=== PATIENT | female | born 1950 | race Caucasian/White ===

== ENCOUNTER 2017-03-23 08:15 | Outpatient (CLI) | payer MEDICARE, OTHER ==
--- NOTE | 2017-03-23 15:44 | NM ---
RADIONUCLIDE GASTRIC EMPTYING SCAN WITH SCRAMBLED EGGS/SOLID: 03/23/17 HISTORY: Abdominal pain. Bloating. FINDINGS: Anterior planar images show good mixing of radiotracer within the stomach. Half life emptying is ryley culated at 135 minutes. 30 minutes = 0% emptying. 60 minutes = 26% emptying. 2 hours = 36% emptying. 3 hours = 92% emptying. 4 hours = 99% emptying. IMPRESSION: Abnormal half life emptying and other findings as detailed above have the appearance of gastropares is. POS: DEBBIE
== END 2017-03-23 08:16 | disposition home or self-care (01) ==
LOC: NM 08:15
PROVIDERS: ATTEND Internal Medicine Gastroenterology
DX: R10.13 Epigastric pain (principal); R14.0 Abdominal distension (gaseous)
CPT/HCPCS: 78264; A9541

== ENCOUNTER 2017-07-12 12:23 | Emergency (ER) | payer BC, MEDICARE ==
--- NOTE | 2017-07-12 13:10 | RAD ---
RADIOGRAPH CHEST 1 VIEW: HISTORY: A 66-year-old female with acute chest pain. FINDINGS: There are no air space densities, pulmonary edema, pneumothorax, or cardiomegaly. The lateral costop hrenic angles are sharp. IMPRESSION: No acute cardiopulmonary findings. jn [] POS: DEBBIE
[2017-07-12 13:19] LABS: #Basophils 0.1 thou/uL (0.0-0.2); #Eosinphils 0.2 thou/uL (0.0-0.7); #Lymphocytes 2.1 thou/uL (1.20-3.40); #Monocytes 0.5 thou/uL (0.11-0.59); #Neutrophils 5.6 thou/uL (1.40-6.50); %Basophils 1.2 % (0.0-1.0); %Eosinophils 2.4 % (0.0-10.0); %Lymphocytes 24.8 % (21.0-51.0); %Monocytes 5.6 % (0.0-10.0); Hemoglobin 13.7 g/dL (12.0-16.0); Mean Corpuscular HGB CONC 34.7 g/dL (32.0-36.0); Mean Corpuscular Hemoglobin 31.8 pg (27.0-31.0); Mean Corpuscular Volume 91.8 fl (81.0-99.0); Mean Platelet Volume 8.2 fL (7.4-10.4); Platelet Count 242 thou/uL (130-400); RBC Distribution Width 11.7 % (11.5-14.5); White Blood Cell (WBC) Count 8.5 thou/uL (4.8-10.8)
[2017-07-12 13:42] LABS: ALT (SGPT) 14 U/L (8-55); AST (SGOT) 13 U/L (5-34); Albumin 3.8 g/dL (3.4-4.8); Alkaline Phosphatase 128 U/L (40-150); Anion Gap 11 mmol/L (10-20); BUN (Urea Nitrogen) 16 mg/dL (9.8-20.1); Bilirubin, Total 0.4 mg/dL (0.2-1.2); CK (CPK) 59 U/L (29-168); Calc. Creatinine Clearance 0 mL/min (70-130); Calcium 9.3 mg/dL (7.8-10.44); Carbon Dioxide 29 mmol/L (23-31); Chloride 100 mmol/L (98-107); Estimated GFR-MDRD 68; Globulin 3.6 g/dL (2.4-3.5); Glucose 284 mg/dL (80-115); Lipase 22 U/L (8-78); Potassium 3.2 mmol/L (3.5-5.1); Protein, Total 7.4 g/dL (6.0-8.3); Sodium 137 mmol/L (136-145)
[2017-07-12 13:44] LABS: CKMB 1.8 ng/mL (0-6.6); Troponin I 0.016 ng/mL (< 0.028)
== END 2017-07-12 14:55 | disposition home or self-care (01) ==
LOC: ERS 12:23
DX: R20.2 Paresthesia of skin (principal); I10 Essential (primary) hypertension; E11.9 Type 2 diabetes mellitus without complications; F32.9 Major depressive disorder, single episode, unspecified
CPT/HCPCS: 36415; 71045; 80053; 82553; 83690; 84484; 85025; 93005

== ENCOUNTER 2018-03-24 18:48 | Observation (INO) | payer BC, MEDICARE ==
[2018-03-24 19:11] LABS: #Basophils 0.1 thou/uL (0.0-0.2); #Eosinphils 0.3 thou/uL (0.0-0.7); #Monocytes 0.8 thou/uL (0.11-0.59); #Neutrophils 6.3 thou/uL (1.40-6.50); %Basophils 0.9 % (0.0-1.0); %Eosinophils 2.5 % (0.0-10.0); %Lymphocytes 28.5 % (21.0-51.0); %Monocytes 7.3 % (0.0-10.0); %Neutrophils 60.9 % (42.0-75.0); Hemoglobin 12.6 g/dL (12.0-16.0); Mean Corpuscular HGB CONC 35.4 g/dL (32.0-36.0); Mean Corpuscular Hemoglobin 31.7 pg (27.0-31.0); Mean Corpuscular Volume 89.6 fL (78.0-98.0); Mean Platelet Volume 8.1 fL (7.4-10.4); Platelet Count 263 thou/uL (130-400); RBC Distribution Width 11.1 % (11.5-14.5); Red Blood Cell (RBC) Count 3.99 mill/uL (4.20-5.40); White Blood Cell (WBC) Count 10.4 thou/uL (4.8-10.8)
[2018-03-24 19:17] LABS: PTT 28.3 SEC (22.9-36.1)
[2018-03-24 19:25] LABS: ALT (SGPT) 7 U/L (8-55); AST (SGOT) 12 U/L (5-34); Albumin 3.8 g/dL (3.4-4.8); Alkaline Phosphatase 144 U/L (40-150); Anion Gap 15 mmol/L (10-20); BUN (Urea Nitrogen) 23 mg/dL (9.8-20.1); Bilirubin, Total 0.3 mg/dL (0.2-1.2); CK (CPK) 89 U/L (29-168); Calc. Creatinine Clearance 0 mL/min (70-130); Calcium 9.5 mg/dL (7.8-10.44); Carbon Dioxide 24 mmol/L (23-31); Chloride 101 mmol/L (98-107); Estimated GFR-MDRD 50; Globulin 4.3 g/dL (2.4-3.5); Glucose 232 mg/dL (80-115); Potassium 3.4 mmol/L (3.5-5.1); Protein, Total 8.1 g/dL (6.0-8.3); Sodium 137 mmol/L (136-145)
[2018-03-24 19:29] LABS: CKMB 2.2 ng/mL (0-6.6); Troponin I Less than 0.010 ng/mL (< 0.028)
--- NOTE | 2018-03-24 19:33 | CT ---
CT OF THE HEAD WITHOUT CONTRAST: 03/24/18 COMPARISON: 04/05/11. HISTORY: Left arm weakness. TECHNIQUE: Serial axial CT imaging at 5 mm intervals from vertex through skull base without contrast. FINDINGS: The imaged paranasal sinuses and mastoid air cells are well aerated. There is no displaced calvarial fracture. No intracranial hemorrhage, midline shift, mass effect or ventricular enlargement. IMPRESSION: No acute findings. Results called to Dr. Curry at 7:18 p.m., 03/24/18. Code CR POS: LETY
[2018-03-24] MEDS ORDERED: Ondansetron HCl/PF 4 MG/2 ML Vial IVP PRN (23:58)
[2018-03-24] MEDS ORDERED: Ondansetron ODT 4 MG TAB SL PRN (23:58)
[2018-03-25] MEDS ORDERED: Dextrose 50% Abboject 50 ML SYRINGE IVP PRN (06:42)
[2018-03-25] MEDS ORDERED: Dextrose 5% in Water 1,000 ML IV PRN (06:42)
[2018-03-25] MEDS ORDERED: Lorazepam 2 MG/ML VIAL SLOW IVP SCH (06:45)
[2018-03-25] MEDS: HumaLOG 300 UNITS/3 ML VIAL SC PRN ×4 (07:30→21:40)
[2018-03-25] MEDS: glipiZIDE 10 MG TAB PO SCH ×2 (08:32→17:11)
[2018-03-25] MEDS: metFORMIN 500 MG TAB PO SCH (08:32)
[2018-03-25] MEDS ORDERED: cloNIDine 0.1 MG TAB PO PRN (10:12)
--- NOTE | 2018-03-25 13:04 | MRI ---
MRI BRAIN NONCONTRAST: HISTORY: Left arm weakness. FINDINGS: There is no evidence of acute intracranial hemorrhage or infarct. Ventricles appear normal in size, shape, and position. There is no mass effect or shift of midline structures. IMPRESSION: No acute intracranial abnormalities are demonstrated. POS: [facility]
[2018-03-25 13:40] VITALS: BMI 29.1
[2018-03-25] MEDS ORDERED: glipiZIDE 10 MG TAB PO SCH (21:00)
--- NOTE | 2018-03-25 21:29 | SS ---
PRIMARY CARE PHYSICIAN: Jose García MD DATE OF ADMISSION: 03/25/2018 CHIEF COMPLAINT: Left arm weakness. HISTORY OF PRESENT ILLNESS: This is a 67-year-old female patient of Dr. Jose García with a history of type 2 diabetes, hypertension, anxiety, reflux, who presents to the Emergency Department with ons et of left arm and hand weakness and clumsiness. The patient states that she has been in usual state of health. No recent changes. 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 She noted some clumsiness with her fingers an d lack of coordination. She was able to drive herself to the Emergency Department and drove with her right arm. By the time she arrived to the ED, her symptoms had resolved and had a normal exam and n ormal workup in the Emergency Department. CT of the brain was negative. Cardiac enzymes were all ne gative and she was admitted for observations overnight. At this point, her MRI is pending. Otherwis e, her symptoms have continued to resolve and we are pending discharge on her MRI report. PAST MEDICAL HISTORY: Type 2 diabetes, hypertension, gastroesophageal reflux disease, anxiety, depre ssion. MEDICATIONS: Include losartan/hydrochlorothiazide 50/12.5 once daily, metformin 1000 mg b.i.d., glip izide 10 mg b.i.d., pantoprazole 40 mg daily, Prozac 10 mg daily. PAST SURGICAL HISTORY: Cholecystectomy, x2, hernia repair, hysterectomy. SOCIAL HISTORY: No alcohol, no drug use, no smoking. She is and lives with her family. ALLERGIES: No known drug allergies. REVIEW OF SYSTEMS: As per the history of present illness. She denies any recent fevers, chills, or recent illness. HEENT: No headache or visual or hearing changes. No recent upper respiratory sympt oms. Cardiac: No chest pain, shortness of breath, palpitations. Pulmonary: Denies cough or hemopt ysis. Gastrointestinal: Denies nausea, vomiting, abdominal pain, melena, or hematochezia. Genitour inary: No dysuria. Neurologic: As per the history of present illness. She denies any recent seizu res. Denies headaches. PHYSICAL EXAMINATION: VITAL SIGNS: Temperature 98; pulse of 78; respirations 20; blood pressure 170/73, but has not had he r morning medicines yet. GENERAL: She is awake and alert, in no acute distress. Speech is clear and fluid. HEENT: Mucosa is moist. NECK: Supple. No JVD, adenopathy. No bruits to auscultation. HEART: Regular rate and rhythm. LUNGS: Clear. ABDOMEN: Soft. EXTREMITIES: With no edema. NEUROLOGIC: Cranial nerves II-XII are intact. Visual simms are intact. Strength is 5/5 in upper a nd lower extremities. Sensation is intact bilaterally in upper and lower extremities. LABORATORY DATA: Reviewed. Accu-Cheks were elevated at 307, 232, and 250. Sodium 137, potassium 3. 4, chloride 101, CO2 of 24, BUN and creatinine 23 and 1.09 with a GFR of 50. Cardiac enzymes were ne gative. White blood cell count 10,400, hemoglobin and hematocrit 12.6 and 35.8, platelets of 263. P T and PTT were normal. Brain CT showed no active disease. MRI again is pending. ASSESSMENT AND PLAN: 1. This is a 67-year-old female patient with risk factors including type 2 diabetes, hypertension, n ow with evidence of a transient ischemic attack. Plan: Await MRI. If normal, we will plan to disch arge home. We will initiate aspirin therapy with 81 mg daily. 2. Type 2 diabetes. We will continue oral meds and insulin sliding scale. 3. Hypertension, uncontrolled. We will continue her losartan/hydrochlorothiazide, as well as clonid ine p.r.n. If it continues to be elevated, we will add calcium channel luis f for better control wi th close followup. DISPOSITION: Again, if MRI is normal, we will discharge home and follow up with Dr. García this week.
[2018-03-26 07:43] VITALS: TEMP 97.9
[2018-03-26] MEDS ORDERED: metFORMIN 500 MG TAB PO SCH (08:00)
[2018-03-26] MEDS: glipiZIDE 10 MG TAB PO SCH (08:17)
[2018-03-26] MEDS: metFORMIN 500 MG TAB PO SCH (08:17)
[2018-03-26] MEDS ORDERED: Aspirin 81 mg Enteric Coated Tablet PO SCH (09:00)
[2018-03-26] MEDS ORDERED: Prevnar 13-Val Conj/PF 0.5 ML SYRINGE IM ONE (09:00)
[2018-03-26] MEDS ORDERED: Amlodipine 5 MG TAB PO SCH (09:00)
[2018-03-26] MEDS ORDERED: FLUoxetine HCl 10 MG CAP PO SCH (09:00)
[2018-03-26 10:34] VITALS: BP 148/64
--- NOTE | 2018-03-26 17:30 | DIS ---
PRIMARY CARE PHYSICIAN: Jose García M.D. DATE OF ADMISSION: 03/25/2018 DATE OF DISCHARGE: 03/26/2018 ADMISSION DIAGNOSES: Left arm weakness consistent with transient ischemic attack. DISCHARGE DIAGNOSIS: Transient ischemic attack, resolved. OTHER DIAGNOSES: Hypertension, type 2 diabetes, anxiety, and depression. PROCEDURES: CT brain, MRI brain, telemetry monitoring. CONSULTATIONS: None. HOSPITAL COURSE: This is a 67-year-old female patient with type 2 diabetes, hypertension, now status post TIA. Her symptoms have resolved. She has initially presented to the Emergency Department with left-sided weakness in her left hand and arm. By the time, she arrived to the Emergency Department, her symptoms had mostly resolved. CT in the ER was negative. Cardiac enzymes were negative. MRI was done during her hospital stay and that revealed no abnormalities. Her blood pressure was elevated on admission and she had amlodipine added to her regimen which she will continue at home. She was stable for discharge on the day of discharge. DISCHARGE PHYSICAL EXAMINATION: VITAL SIGNS: Temperature 97.9, pulse of 77, respirations 16, blood pressure 145 /68, pulse ox 97% on room air. GENERAL: She is awake and alert, in no acute distress. Speech is clear. NECK: Supple. HEART: Regular rate and rhythm. LUNGS: Clear. NEUROLOGIC: Cranial nerves II-XII intact. Strength 5/5 in upper and lower extremities. Sensation is intact in upper and lower extremities. DISCHARGE MEDICATIONS: Amlodipine 5 mg daily, aspirin 81 mg daily, Prozac 10 mg daily, Glucotrol 10 mg b.i.d., losartan/hydrochlorothiazide 50/12.5 one daily , metformin 500 mg daily, Protonix 40 mg daily. Prevnar vaccine was given in the hospital. Patient declines starting statin therapy at this time. She wants to discuss with her PCP prior to starting medication. She is aware of risks and benefits. FOLLOWUP INSTRUCTIONS: Patient to follow up with Dr. García in 1 week. SHANNEN
== END 2018-03-26 14:22 | disposition home or self-care (01) ==
LOC: ERS 18:48 → 2SE 23:42
PROVIDERS: ADMIT Family Medicine; ATTEND Family Medicine
DX: G45.9 Transient cerebral ischemic attack, unspecified (principal); I10 Essential (primary) hypertension; E11.9 Type 2 diabetes mellitus without complications; F41.8 Other specified anxiety disorders; Z79.84 Long term (current) use of oral hypoglycemic drugs; Z79.899 Other long term (current) drug therapy
CPT/HCPCS: 70450; 70551; 80053; 82550; 82553; 82962 ×3; 84484; 85025; 85610; 85730; 90670; 93005; 96374; 97116; 97139 ×2; 99285; G0009; G0378 ×2; G8978; G8979; G8980; 36415; 36416; 90471; A4216; J2060

== ENCOUNTER 2019-01-30 08:06 | Emergency (ER) | payer MEDICARE ==
[2019-01-30 09:42] LABS: #Basophils 0.1 thou/uL (0.0-0.2); #Eosinphils 0.2 thou/uL (0.0-0.7); #Lymphocytes 1.6 thou/uL (1.20-3.40); #Monocytes 0.6 thou/uL (0.11-0.59); #Neutrophils 9.7 thou/uL (1.40-6.50); %Basophils 0.7 % (0.0-1.0); %Eosinophils 1.4 % (0.0-10.0); %Lymphocytes 13.1 % (21.0-51.0); %Monocytes 4.7 % (0.0-10.0); %Neutrophils 80.1 % (42.0-75.0); Hemoglobin 12.1 g/dL (12.0-16.0); Mean Corpuscular Hemoglobin 31.3 pg (27.0-31.0); Mean Corpuscular Volume 87.1 fL (78.0-98.0); Mean Platelet Volume 8.2 fL (7.4-10.4); Platelet Count 250 thou/uL (130-400); RBC Distribution Width 11.9 % (11.5-14.5); Red Blood Cell (RBC) Count 3.85 mill/uL (4.20-5.40); White Blood Cell (WBC) Count 12.1 thou/uL (4.8-10.8)
--- NOTE | 2019-01-30 09:56 | ULT ---
EXAM: Left lower extremity venous ultrasound HISTORY: Left lower extremity pain and edema COMPARISON: None TECHNIQUE: Multiplanar grayscale and color Doppler images were obtained in a left lower extremity laure ous ultrasound. Spectral analysis of the Doppler waveforms were performed. FINDINGS: The common femoral vein, profunda femoral vein, superficial femoral vein, and popliteal vei n are normal in appearance without visible thrombus. These vessels demonstrate normal compression, flow, and augmentation. The posterior tibial vein and greater saphenous vein are patent without evidence of thrombus. IMPRESSION: No evidence of DVT.
[2019-01-30 10:03] LABS: ALT (SGPT) 10 U/L (8-55); AST (SGOT) 11 U/L (5-34); Albumin 3.2 g/dL (3.4-4.8); Alkaline Phosphatase 211 U/L (40-150); Anion Gap 13 mmol/L (10-20); BUN (Urea Nitrogen) 16 mg/dL (9.8-20.1); Bilirubin, Total 0.2 mg/dL (0.2-1.2); Calc. Creatinine Clearance 0 mL/min (70-130); Carbon Dioxide 26 mmol/L (23-31); Chloride 100 mmol/L (98-107); Estimated GFR-MDRD 59; Globulin 3.9 g/dL (2.4-3.5); Glucose 527 mg/dL (80-115); Protein, Total 7.1 g/dL (6.0-8.3); Sodium 136 mmol/L (136-145)
[2019-01-30] MEDS ORDERED: Losartan 25 MG TAB PO SCH (10:30)
[2019-01-30] MEDS ORDERED: Potassium Chloride 20 MEQ TAB ONE (10:32)
[2019-01-30] MEDS ORDERED: Insulin Regular 300 UNITS/3 ML VIAL ONE (10:41)
[2019-01-30] MEDS ORDERED: NS 0.9% w/ 40 MEQ KCL 1,000 ML IV SCH (11:15)
[2019-01-30 11:42] LABS: Bacteria/HPF None Seen HPF (None Seen); Bilirubin Negative (Negative); Blood, Urine Trace (Negative); Clarity Clear (Clear); Glucose, Urine (Dipstick) Greater than 1000 mg/dL (Negative); Leukocyte Negative Leu/uL (Negative); Nitrite Negative (Negative); Protein, Urine (Dipstick) 200 mg/dL (Neg-Trace); RBC/HPF 0-3 HPF (0-3); Squamous Epithelial None Seen HPF (0-3); Urobilinogen Normal mg/dL (Less than 2); WBC/HPF 0-3 HPF (0-3)
[2019-01-30] MEDS ORDERED: Ondansetron PF 4 MG/2 ML Vial ONE ×2 (13:57→13:59)
== END 2019-01-30 17:37 | disposition home or self-care (01) ==
LOC: ERS 08:06
DX: E11.65 Type 2 diabetes mellitus with hyperglycemia (principal); I10 Essential (primary) hypertension; E87.6 Hypokalemia; Z76.0 Encounter for issue of repeat prescription; K21.9 Gastro-esophageal reflux disease without esophagitis; F41.9 Anxiety disorder, unspecified; Z79.899 Other long term (current) drug therapy; Z79.84 Long term (current) use of oral hypoglycemic drugs
CPT/HCPCS: 36416; 80053; 81003; 81015; 84484; 85025; 93005; 96365; 96366; 96375; J1815; J2405; J3480

== ENCOUNTER 2019-12-19 22:09 | Observation (INO) | payer MEDICARE ==
[~2019-12-19 22:09] MED LIST: Iopamidol 370 76% 100 ML VIAL ONE
[2019-12-19 22:40] LABS: #Basophils 0.1 thou/uL (0.0-0.2); #Eosinphils 0.2 thou/uL (0.0-0.7); #Lymphocytes 2.3 thou/uL (1.20-3.40); #Monocytes 0.7 thou/uL (0.11-0.59); #Neutrophils 9.6 thou/uL (1.40-6.50); %Basophils 0.9 % (0.0-1.0); %Eosinophils 1.6 % (0.0-10.0); %Lymphocytes 18.1 % (21.0-51.0); %Monocytes 5.2 % (0.0-10.0); %Neutrophils 74.2 % (42.0-75.0); Hemoglobin 10.5 g/dL (12.0-16.0); Mean Corpuscular HGB CONC 34.9 g/dL (32.0-36.0); Mean Corpuscular Hemoglobin 30.1 pg (27.0-31.0); Mean Corpuscular Volume 86.2 fL (78.0-98.0); Mean Platelet Volume 7.5 fL (7.4-10.4); Platelet Count 329 thou/uL (130-400); RBC Distribution Width 11.7 % (11.5-14.5); Red Blood Cell (RBC) Count 3.49 mill/uL (4.20-5.40); White Blood Cell (WBC) Count 12.9 thou/uL (4.8-10.8)
[2019-12-19] MEDS ORDERED: Aspirin Chewable 81 MG TAB ONE (22:40)
[2019-12-19] MEDS ORDERED: Nitroglycerin 2% Ointment 1 INCH/1 GM Packet ONE (22:40)
--- NOTE | 2019-12-19 22:47 | RAD ---
XR Chest 1 View Portable History: Dyspnea Comparison: Radiograph June 2017 Findings: Lungs are clear. No pneumothorax. No effusion. Cardiac silhouette and mediastinal contours are within normal limits. No acute osseous abnormality. Impression: No acute intrathoracic abnormality.
[2019-12-19 23:07] LABS: ALT (SGPT) 7 U/L (8-55); AST (SGOT) 11 U/L (5-34); Albumin 2.8 g/dL (3.4-4.8); Alkaline Phosphatase 196 U/L (40-110); Anion Gap 14 mmol/L (10-20); BUN (Urea Nitrogen) 14 mg/dL (9.8-20.1); Bilirubin, Total 0.3 mg/dL (0.2-1.2); CK (CPK) 180 U/L (29-168); Calc. Creatinine Clearance 0 mL/min (70-130); Calcium 7.7 mg/dL (7.8-10.44); Carbon Dioxide 26 mmol/L (23-31); Chloride 101 mmol/L (98-107); Estimated GFR-MDRD 37; Globulin 3.9 g/dL (2.4-3.5); Glucose 277 mg/dL (80-115); Lipase 26 U/L (8-78); Protein, Total 6.7 g/dL (6.0-8.3); Sodium 138 mmol/L (136-145)
[2019-12-19 23:14] LABS: Potassium 2.6 mmol/L (3.5-5.1)
[2019-12-19] MEDS ORDERED: Potassium Chloride 20 MEQ TAB ONE (23:15)
[2019-12-19] MEDS ORDERED: Enoxaparin Sodium 60 MG/0.6 ML SYRINGE ONE (23:40)
[2019-12-19] MEDS ORDERED: Labetalol HCl 100 MG/20 ML VIAL ONE (23:59)
--- NOTE | 2019-12-20 | CT ---
CTA Angio Chest W WO Con History: Chest pain Comparison: Reference is made to radiograph same day Findings: CT angiogram chest performed after the intravenous administration of contrast. 3-D renderin g provided. No proximal segmental pulmonary arterial filling defect. Aortic contour is normal. Incidental note is made of biliary gas likely from prior sphincterotomy. No mediastinal adenopathy. No pulmonary consolidation, pneumothorax or effusion. Low-grade atelectasis left lung base. No suspic ious pulmonary nodule. No acute osseous abnormality. Celiac trunk and superior mesenteric arteries are patent. Cyst superior pole left kidney is similar. No acute displaced rib fracture. Impression: 1. No pulmonary embolism. 2. No inflammatory process within the chest. No evidence for pneumonia.
[2019-12-20] MEDS ORDERED: Potassium Chloride 20 MEQ/100 ML PREMIX BAG ONE (00:11)
[2019-12-20] MEDS ORDERED: Nitroglycerin 0.4 MG TAB (25 Tab Bottle) PO PRN (01:58)
[2019-12-20] MEDS ORDERED: HumaLOG 300 UNITS/3 ML VIAL SC PRN (02:02)
[2019-12-20] MEDS ORDERED: Dextrose 5% in Water 1,000 ML IV PRN (02:02)
[2019-12-20] MEDS ORDERED: Dextrose 50% Abboject 50 ML SYRINGE SLOW IVP PRN (02:02)
[2019-12-20] MEDS ORDERED: Labetalol HCl 100 MG/20 ML VIAL SLOW IVP PRN (02:05)
[2019-12-20] MEDS ORDERED: hydrALAZINE 20 MG/ML VIAL SLOW IVP PRN (02:05)
[2019-12-20] MEDS ORDERED: Acetaminophen 325 MG TAB PO PRN (02:06)
[2019-12-20] MEDS ORDERED: Atorvastatin Calcium 40 MG TAB PO SCH ×2 (02:15→21:00)
[2019-12-20 02:18] VITALS: BMI 25.3
[2019-12-20 02:50] LABS: #Basophils 0.1 thou/uL (0.0-0.2); #Eosinphils 0.2 thou/uL (0.0-0.7); #Monocytes 0.7 thou/uL (0.11-0.59); #Neutrophils 10.8 thou/uL (1.40-6.50); %Basophils 0.7 % (0.0-1.0); %Lymphocytes 25.1 % (21.0-51.0); %Monocytes 4.7 % (0.0-10.0); %Neutrophils 68.5 % (42.0-75.0); Hemoglobin 10.6 g/dL (12.0-16.0); Mean Corpuscular HGB CONC 36.5 g/dL (32.0-36.0); Mean Corpuscular Hemoglobin 31.8 pg (27.0-31.0); Mean Corpuscular Volume 87.2 fL (78.0-98.0); Mean Platelet Volume 8.3 fL (7.4-10.4); Platelet Count 239 thou/uL (130-400); RBC Distribution Width 11.9 % (11.5-14.5); Red Blood Cell (RBC) Count 3.32 mill/uL (4.20-5.40); White Blood Cell (WBC) Count 15.7 thou/uL (4.8-10.8)
[2019-12-20 03:14] LABS: Anion Gap 14 mmol/L (10-20); BUN (Urea Nitrogen) 12 mg/dL (9.8-20.1); Calc. Creatinine Clearance 39 mL/min (70-130); Calcium 7.8 mg/dL (7.8-10.44); Carbon Dioxide 24 mmol/L (23-31); Cardiac Risk 3.9 (Less than 4.5); Chloride 102 mmol/L (98-107); Cholesterol 193 mg/dl (< 200 Desired); Estimated GFR-MDRD 41; Glucose 224 mg/dL (80-115); HDL Cholesterol 49 mg/dL (>60 Neg Risk); LDL Cholesterol, Calculated 97 mg/dL; Sodium 137 mmol/L (136-145); Triglycerides 233 mg/dL (Less than 150)
[2019-12-20 03:22] LABS: Potassium 2.8 mmol/L (3.5-5.1)
--- NOTE | 2019-12-20 03:56 | HP ---
PRIMARY CARE PHYSICIAN: Dr. Jose García. CHIEF COMPLAINT: Dyspnea. HISTORY OF PRESENT ILLNESS: The patient is a 69-year-old female with a past medical history significant for hypertension, diabetes type 2 non-insulin dependent, acid reflux, and anxiety, who presents to the ER for the above complaint. The patient reports having dyspnea intermittently over the past several weeks. She reports that the dyspnea is exacerbated with activities such as cleaning the house. Prior to coming to the ER, the patient reports that she was on her knees cleaning off a shelf when she began to feel a little bit short of breath with associated generalized weakness. She reports that she has had this off and on for several weeks. However, this evening, it was much worse. She denies any chest pain, heart palpitations, and swelling to lower extremities. She denies any cough, any recent fever or chills. She denies any abdominal pain, nausea, vomiting, or diarrhea. She denies feeling lightheaded. She has no other complaints at this time. The patient reports that she was discharged from [facility] for similar symptoms in November, she was discharged home on no new medications and she was supposed to follow up with a project builder. She reports that she actually was going to see Dr. Bautista tomorrow for a cardiac stress test, but instead had to come to the ER. In the ER, the patient's vital signs, she was hypertensive 186/80, she was tachycardic with a heart rate of 112. She had normal respirations, normal O2 sats. She was afebrile. EKG showed sinus tach 103, no ST elevations. Chest x-ray was negative for any acute process. D-dimer was elevated at 1.24. CTA of the chest was negative for any pulmonary embolism. Initial troponin 0.036, CK-MB 2.0, CPK 180, potassium of 2.6, creatinine 1.42, and glucose of 277. The patient was given Lovenox 1 mg/kg, aspirin and nitroglycerin paste on her chest. She was given 60 mEq of potassium. She was given labetalol IV push and 1 L of normal saline. PAST MEDICAL HISTORY: 1. Hypertension. 2. Diabetes type 2, non-insulin dependent. 3. GERD. 4. Anxiety. PAST SURGICAL HISTORY: 1. Cholecystectomy. 2. x2. 3. Hernia. 4. Hysterectomy. SOCIAL HISTORY: The patient lives alone at home. She has no history of smoking , illicit drug use, or alcohol intake. She is retired. FAMILY HISTORY: Contributory for cardiac disease. ALLERGIES: NO KNOWN DRUG ALLERGIES. HOME MEDICATIONS: 1. Fluoxetine 20 mg p.o. daily. 2. Pantoprazole 40 mg p.o. daily. 3. Glipizide 10 mg p.o. b.i.d. 4. Metformin 500 mg p.o. b.i.d. 5. Hydrochlorothiazide 12.5 mg p.o. daily. 6. Amlodipine 5 mg p.o. daily. 7. Losartan 50 mg p.o. daily. REVIEW OF SYSTEMS: All review of systems are negative unless otherwise stated in the HPI. PHYSICAL EXAMINATION: VITAL SIGNS: Temperature 99, blood pressure 186/80, heart rate 112, respirations 19, 98% on room air. CONSTITUTIONAL: The patient is alert and oriented to person, place, and time. No acute distress. Nontoxic in appearance. HEAD: Atraumatic and normocephalic. EYES: PERRLA. Extraocular muscles intact. ENT: Nares patent bilaterally. Oropharynx is clear. Uvula midline. Moist mucous membranes. NECK: Supple. Trachea midline. No JVD. No cervical adenopathy. Full range of motion. RESPIRATORY: Respirations are even and nonlabored. No rhonchi, wheezes, or rales. CARDIOVASCULAR: S1, S2 appreciated. No murmurs, rubs, or gallops. ABDOMEN: Soft, nontender. Active bowel sounds. No guarding. No rigidity. No rebound tenderness. No abdominal bruit auscultated. BACK: Full range of motion. No central spinous tenderness. No CVA tenderness. EXTREMITIES: Bilateral upper extremities; full range of motion, strength normal , sensation intact, palpable radial pulses. Bilateral lower extremities; full range of motion, strength intact, sensation intact, palpable pedal pulses, no swelling. NEUROLOGIC: The patient is alert and oriented to person, place, and time. No focal deficits. Normal gait. PSYCHIATRIC: Normal affect. Alert, oriented to person, place, and time. LABS AND DIAGNOSTICS: EKG; sinus tach 103, no ST elevations. Chest x-ray was negative. D-dimer was 1.24. CTA of chest was negative for PE. Initial troponin 0.034, CK-MB 2.0, CPK 180. Sodium 138, potassium 2.6, chloride 101, CO2 of 26, BUN 14, creatinine 1.42, glucose 277, calcium 7.7, alkaline phosphatase 196, AST 11 , ALT 7. WBC is 12.9, hemoglobin 10.5, hematocrit 30.1, platelets 329. IMPRESSION AND PLAN: 1. Dyspnea, rule out acute coronary syndrome. We will admit the patient to telemetry for observation status. Expected length of stay is less than 2 midnights. The patient's HEART score is a 6. CTA of chest was negative. Initial troponin was 0.036. We will continue aspirin and nitroglycerin paste. We will start Lipitor. We will trend troponins. We will check a TSH, fasting lipid, magnesium, and BNP. We will consult Cardiology. We will obtain echocardiogram. 2. Acute kidney injury. The patient presented with a creatinine of 1.42, baseline appears to be 1.07. We will give gentle IV hydration this evening and we will recheck in the a.m. We will avoid nephrotoxic drugs. We will hold hydrochlorothiazide and losartan. 3. Hypokalemia. The patient presented with a potassium of 2.6. EKG with sinus tach 103, no ST elevations. The patient received 60 mEq of potassium in the ER. We will recheck potassium level in a.m. and we will check magnesium level. 4. Diabetes 2. The patient presented with a blood sugar of 277. The patient takes metformin and glipizide at home. We will hold oral anti-diabetic medications at this time. We will start moderate sliding scale with Accu-Cheks before meals and at bedtime. 5. Hypertension. The patient presented with an elevated blood pressure of 186/ 80. The patient takes losartan, amlodipine, hydrochlorothiazide. We will restart amlodipine when reconciled by nursing. 6. Gastroesophageal reflux disease. The patient takes Protonix at home. We will restart home medication when reconciled by nursing. 7. SCDs for deep venous thrombosis prophylaxis. Pantoprazole for gastrointestinal prophylaxis. The patient is a full code. Her contact is Bobby, her son, [phone]. 8. Discussed the case with Dr. Mckinney. Job ID: [id number] [facility] HEALTHKelly
[2019-12-20] MEDS: Sodium Chloride 0.9% 1,000 ML IV SCH ×2 (04:01→21:58)
[2019-12-20] MEDS: Nitroglycerin 2% Ointment 1 INCH/1 GM Packet TOP SCH ×3 (04:07→21:59)
[2019-12-20 05:33] LABS: Troponin I 0.022 ng/mL (< 0.028)
[2019-12-20 08:21] LABS: Potassium 2.7 mmol/L (3.5-5.1)
[2019-12-20] MEDS ORDERED: Potassium Chloride 20 MEQ TAB PO SCH (08:45)
[2019-12-20] MEDS ORDERED: Famotidine 20 MG TAB PO SCH (09:00)
[2019-12-20] MEDS: Aspirin 81 mg Enteric Coated Tablet PO SCH (09:16)
[2019-12-20] MEDS ORDERED: Potassium Chloride 10 MEQ/100 ML PREMIX BAG IVPB SCH (09:30)
[2019-12-20] MEDS ORDERED: Magnesium Sulfate 3 GM in Sodium Chloride 0.9% 100 ML IVPB SCH (10:15)
[2019-12-20 10:22] LABS: Bacteria/HPF 3+ HPF (None Seen); RBC/HPF None Seen HPF (0-3); Squamous Epithelial 0-3 HPF (0-3)
--- NOTE | 2019-12-20 13:47 | CON ---
DATE OF CONSULTATION: 12/20/2019 REASON FOR CONSULTATION: Dyspnea on exertion. HISTORY OF PRESENT ILLNESS: Ms. Pritchett is a very pleasant 69-year-old white female, who comes to the hospital for evaluation of dyspnea. She has had this for a long time now. She states about a month ago, she went to the [facility] for this. She was admitted and she had a CAT scan and she was told everything looked fine. She had blood work done and was told her potassium was low. She does not remember if her potassium was replaced. She was not given any pills to go home potassium. She comes back as she continues to get short of breath with exertion. She was seen in the ER here and blood pressure was in the 180s over 80s, tachycardic, heart rate in the 110s, so she was admitted and Cardiology is being consulted. CAT scan was done that was negative for any thrombus and troponins have been drawn out and she has been in a 0.03, 0.04, 0.02 Her potassium is still low at 2.7 with a low magnesium. She denies any chest pain, tightness, or pressure. PAST MEDICAL HISTORY: 1. Hypertension. 2. Type 2 diabetes. 3. GERD. 4. Anxiety. SURGICAL HISTORY: 1. Cholecystectomy. 2. . 3. Hernia repair. 4. Hysterectomy. SOCIAL HISTORY: No alcohol, tobacco, or drugs. FAMILY HISTORY: Early coronary artery disease. ALLERGIES: NO KNOWN DRUG ALLERGIES. OUTPATIENT MEDICATIONS: 1. Fluoxetine 20 mg a day. 2. Pantoprazole 40 mg a day. 3. Glipizide 10 mg b.i.d. 4. Metformin 500 b.i.d. 5. Hydrochlorothiazide 12.5 daily. 6. Amlodipine 5 mg a day. 7. Losartan 50 mg a day. REVIEW OF SYSTEMS: A 12-point review of systems was done and was all negative unless stated in the history of present illness. PHYSICAL EXAMINATION: VITAL SIGNS: Temperature 98.1, pulse 89, respiratory rate 20, saturating 99% on room air, blood pressure 169/84. GENERAL: Awake, alert, oriented x3, in no distress. HEENT: Normocephalic and atraumatic. NECK: Supple. LUNGS: Clear. CARDIOVASCULAR: S1, S2. No S3 or S4. No murmurs. ABDOMEN: Soft. Positive bowel sounds. EXTREMITIES: No edema. SKIN: Warm and dry. LABORATORY DATA: Laboratory work was reviewed. CBC with a white count of 15, hemoglobin of 10, hematocrit of 29, platelet count 239. Coags, D-dimer was 1.24. Chemistry showed a sodium of 137, potassium was 2.8, magnesium was 1.3, creatinine 1.28, GFR of 41. Triglycerides 233, cholesterol total of 193, LDL of 97, HDL of 49. TSH was normal at 3. Normal cortisol. Normal lipase. Troponins were 0.03, 0.04, 0.02. BNP was 96. UA showed 3+ bacteria. ASSESSMENT: 1. Dyspnea on exertion. 2. Hypokalemia. 3. Hypomagnesemia. 4. Hypertension, poorly controlled. PLAN: 1. Stop hydrochlorothiazide indefinitely as this is most likely the cause of her hypomagnesemia and hypokalemia which can lead to shortness of breath and tiredness. 2. Replace magnesium and then potassium. This is already happening adequately. 3. We will plan on further risk stratification with a stress test. It sounds like Niranjan did not do a stress test, may be just a CAT scan or an echo. At this point, we will risk stratify with a nuclear stress test. 4. We will repeat echocardiogram to make sure LV function is unchanged and valvular structures are normal. 5. Further recommendations per results of echo and stress test. 6. Would restart her home medications for blood pressure, except for the hydrochlorothiazide which most likely should be stopped to avoid low potassiums in the future. 7. We will follow up. Job ID: [id number]
[2019-12-20] MEDS: HumaLOG 300 UNITS/3 ML VIAL SC PRN ×2 (13:51→18:39)
--- NOTE | 2019-12-20 19:22 | PDOC.HOSPP ---
- Subjective Encounter Date: 12/20/19 Encounter Time: 09:45 Subjective: pt up in bed no complains - Objective Vital Signs & Weight: Vital Signs (12 hours) Temp Pulse Resp BP Pulse Ox 12/20/19 15:27 98.7 F 98 16 129/79 99 12/20/19 11:00 98.1 F 89 20 169/84 H 99 12/20/19 07:36 97.6 F 85 16 155/76 H 99 Weight Weight 129 lb 9.6 oz I&O: 12/19/19 12/20/19 12/21/19 06:59 06:59 06:59 Intake Total 200 Balance 200 Result Diagrams: 12/20/19 02:38 12/20/19 07:41 Additional Labs: Accuchecks 12/20/19 12/20/19 12/20/19 17:00 11:49 05:39 POC Glucose 203 H 264 H 213 H Hospitalist ROS - Review of Systems Respiratory: denies: cough, dry, shortness of breath, hemoptysis, SOB with excertion, pleuritic pain, sputum, wheezing, other Cardiovascular: denies: chest pain, palpitations, orthopnea, paroxysmal noc. dyspnea, edema, light headedness, other Gastrointestinal: denies: nausea, vomiting, abdominal pain, diarrhea, constipation, melena, hematochezia, other - Medication Medications: Active Medications Generic Name Dose Route Start Last Admin Trade Name Freq PRN Reason Stop Dose Admin Aspirin 81 mg 12/20/19 09:00 12/20/19 09:16 Ecotrin PO 81 mg DAILY VICKI Administration Sodium Chloride 1,000 mls @ 50 mls/hr 12/20/19 02:00 12/20/19 04:01 Normal Saline 0.9% IV 1,000 mls .Q20H VICKI Administration Insulin Human Lispro 0 units 12/20/19 02:02 12/20/19 18:39 Humalog SC 4 unit .MODERATE SLIDING SC PRN Administration Moderate Correctional Scale Nitroglycerin 0.5 inch 12/20/19 06:00 12/20/19 13:51 Nitro-Bid 2% Ointment TOP 0.5 inch Q8HR VICKI Administration Pantoprazole Sodium 40 mg 12/20/19 09:00 12/20/19 09:16 Protonix PO 40 mg DAILY VICKI Administration Sodium Chloride 10 ml 12/20/19 09:00 12/20/19 09:17 Flush - Normal Saline IVF 10 ml Q12HR VICKI Administration - Exam Neck: negative: supple, symmetric, no JVD, no thyromegaly, no lymphadenopathy, no carotid bruit, JVD Heart: negative: RRR, no murmur, no gallops, no rubs, normal peripheral pulses, irregular, diminshed peripheral pulses, murmur present, II/IV, III/IV Respiratory: negative: CTAB, no wheezes, no rales, no ronchi, normal chest expansion, no tachypnea, normal percussion, rales, rhonchi, tachypneic, wheezes Hosp A/P (1) Hypokalemia Code(s): E87.6 - HYPOKALEMIA Status: Acute (2) Chest pain Code(s): R07.9 - CHEST PAIN, UNSPECIFIED Status: Acute (3) Hypomagnesemia Code(s): E83.42 - HYPOMAGNESEMIA Status: Acute (4) Type 2 diabetes mellitus Status: Acute - Plan pt states that she had cardiac work up in [facility]. will obtain records. cardiology consulted. electrolytes replaced. will hold diuretics. cortisol ordered. will order tsh.
[2019-12-20 19:49] LABS: Anion Gap 13 mmol/L (10-20); BUN (Urea Nitrogen) 10 mg/dL (9.8-20.1); Calc. Creatinine Clearance 42 mL/min (70-130); Calcium 7.6 mg/dL (7.8-10.44); Carbon Dioxide 21 mmol/L (23-31); Chloride 106 mmol/L (98-107); Estimated GFR-MDRD 45; Glucose 318 mg/dL (80-115); Potassium 3.4 mmol/L (3.5-5.1); Sodium 137 mmol/L (136-145)
[2019-12-21 05:17] LABS: Anion Gap 9 mmol/L (10-20); BUN (Urea Nitrogen) 11 mg/dL (9.8-20.1); Calc. Creatinine Clearance 44 mL/min (70-130); Calcium 7.8 mg/dL (7.8-10.44); Carbon Dioxide 24 mmol/L (23-31); Chloride 109 mmol/L (98-107); Estimated GFR-MDRD 47; Glucose 253 mg/dL (80-115); Potassium 3.3 mmol/L (3.5-5.1); Sodium 139 mmol/L (136-145)
[2019-12-21] MEDS: Nitroglycerin 2% Ointment 1 INCH/1 GM Packet TOP SCH ×2 (05:44→15:29)
[2019-12-21] MEDS ORDERED: Potassium Chloride 20 MEQ TAB PO SCH ×2 (06:45→09:45)
[2019-12-21] MEDS ORDERED: Lorazepam 2 MG/ML VIAL SLOW IVP SCH (08:45)
[2019-12-21] MEDS ORDERED: Amlodipine 10 MG TAB PO SCH (09:00)
[2019-12-21] MEDS ORDERED: POTASSIUM GLUCONATE 550 MG PO SCH (09:00)
[2019-12-21] MEDS ORDERED: glipiZIDE 10 MG TAB PO SCH (09:00)
[2019-12-21] MEDS ORDERED: FLUoxetine HCl 10 MG CAP PO SCH (09:00)
[2019-12-21] MEDS ORDERED: Potassium Chloride 10 MEQ TAB PO SCH (09:00)
[2019-12-21] MEDS ORDERED: ADENOSINE 60 MG/20 ML VIAL ONE (11:23)
[2019-12-21] MEDS: Aspirin 81 mg Enteric Coated Tablet PO SCH (12:14)
--- NOTE | 2019-12-21 13:22 | NM ---
MYOCARDIAL PERFUSION SCAN WITH SPECT IMAGING: HISTORY: Shortness of breath. Chest pain. History of hypertension and diabetes. TECHNIQUE/FINDINGS: Examination is performed using 31 mCi 99m-technetium sestamibi on the stress and 11 on the resting im ages. This shows a fairly normal distribution of radiopharmaceutical. WALL MOTION: There is symmetric contractility to the ventricle. LEFT VENTRICULAR EJECTION FRACTION: The calculated left ventricular ejection fraction is 73%. IMPRESSION: Unremarkable myocardial perfusion scan. POS: DEBBIE
[2019-12-21] MEDS ORDERED: hydrALAZINE 25 MG TAB PO SCH ×2 (14:00→21:00)
[2019-12-21 14:20] LABS: Hemoglobin A1c 11.6 % (4.0-6.0)
[2019-12-21 15:32] VITALS: BP 149/72
[2019-12-21 15:43] VITALS: TEMP 98.3
[2019-12-21] MEDS: HumaLOG 300 UNITS/3 ML VIAL SC PRN (17:09)
[2019-12-21 18:34] LABS: Bacteria/HPF 4+ HPF (None Seen); Bilirubin Negative (Negative); Blood, Urine Trace (Negative); Clarity Turbid (Clear); Glucose, Urine (Dipstick) Greater than 1000 mg/dL (Negative); Ketone, Urine Negative (Negative); Leukocyte Negative Leu/uL (Negative); Nitrite Negative (Negative); Protein, Urine (Dipstick) 200 mg/dL (Neg-Trace); RBC/HPF 0-3 HPF (0-3); Specific Gravity, Urine 1.009 (1.002-1.036); Squamous Epithelial 0-3 HPF (0-3); Urobilinogen Normal mg/dL (Less than 2)
[2019-12-21 18:36] LABS: Urine Culture Reflex Yes Yes
[2019-12-21] MEDS ORDERED: Cefdinir 300 MG CAP PO SCH (19:15)
[2019-12-21] MEDS ORDERED: Insulin Glargine 8 UNITS in Pre-Filled Syringe 1 EACH SC SCH (21:00)
[2019-12-22] MEDS ORDERED: Insulin Glargine 10 UNITS in Pre-Filled Syringe 1 EACH SC SCH (09:00)
[2019-12-22] MEDS ORDERED: Cefdinir 300 MG CAP PO SCH (09:00)
--- NOTE | 2019-12-23 16:30 | DIS ---
DATE OF ADMISSION: 12/20/2019 DATE OF DISCHARGE: 12/21/2019 DISCHARGE DIAGNOSES: 1. Hypokalemia. 2. Hypomagnesemia. 3. Shortness of breath. 4. Acute kidney injury. HOSPITAL COURSE: The patient is a 69-year-old female with history of hypertension, diabetes type 2, who presents to the hospital with complaints of shortness of breath. The patient recently was at [facility] and had some workup; however, she was unable to tell me any details. At this time, she had a CTA of the chest, which was negative for any PE. She was seen by Cardiology, underwent a stress test, which was negative. Her potassium was replaced. The patient upon presentation, her creatinine was 1.42, which improved to 1.41 upon discharge. The patient's losartan was held and also her hydrochlorothiazide was discontinued. Given her hypokalemia, her hydrochlorothiazide was discontinued and also given her elevated creatinine and the fact that she received contrast, her losartan was also stopped. She was put on Norvasc. She was already on it, but the dose was increased and hydralazine was added. The patient's blood sugars were very hard to control in the hospital. At this time, her hemoglobin A1c was checked, which was 11. I did initially put the patient on insulin and recommended the patient staying in the hospital to better titrate her sugars; however, the patient stated that she does not want to be on insulin and will not take insulin. I did express to her that she might go into diabetic ketoacidosis in the language that she would understand and also very greater risk of infection. However, the patient states that she will not take insulin and she will continue to work on it. I have asked her to follow up with her primary care doctor next week and keep a diary of her sugars. MEDICATIONS: Her home medications will be; 1. Glipizide 10 mg twice a day. 2. Potassium 500 mg daily. 3. Protonix 40 mg daily. 4. Prozac 10 mg daily. 5. Metformin, which she is supposed to be starting tomorrow. 6. Hydralazine 50 mg twice a day. 7. Omnicef 300 mg b.i.d. 8. Norvasc 10 mg daily. I did start her on the Omnicef because her urine indicated some bacteria and she did have a mild elevated leukocytosis. The culture is still pending. Her previous culture was E coli, which was sensitive to Omnicef. The patient currently is completely asymptomatic. PHYSICAL EXAMINATION: VITAL SIGNS: On discharge are temperature 98.3, heart rate 93, respiratory rate 18, oxygen saturation 98% on room air, and blood pressure 149/72. GENERAL: She is awake, alert, and oriented x3. Does not appear in distress. CV: S1, S2 present. No murmurs, rubs, or gallops. The patient was seen by Cardiology, who did order the stress test and again the stress test was normal. She will be discharged home and she will follow up with her primary, Dr. Jose García. Job ID: [id number]
== END 2019-12-21 21:42 | disposition home or self-care (01) ==
LOC: ERS 22:09 → 2SE 12-20 00:14
PROVIDERS: ADMIT Internal Medicine; ATTEND Internal Medicine
DX: R06.02 Shortness of breath (principal); R06.09 Other forms of dyspnea; E87.6 Hypokalemia; E83.42 Hypomagnesemia; N17.9 Acute kidney failure, unspecified; R53.1 Weakness; I10 Essential (primary) hypertension; K21.9 Gastro-esophageal reflux disease without esophagitis; E11.9 Type 2 diabetes mellitus without complications; F41.9 Anxiety disorder, unspecified; R07.9 Chest pain, unspecified; Z79.84 Long term (current) use of oral hypoglycemic drugs; Z79.899 Other long term (current) drug therapy
CPT/HCPCS: 71045; 71275; 78452; 80048 ×3; 80053; 80061; 81001; 81015; 82533; 82550; 82553; 82962 ×2; 83036; 83690; 83735 ×2; 83880; 84132; 84443; 84484 ×3; 85025 ×2; 85379; 87077; 87086; 87186; 93005; 93017; 93306; 97139 ×2; A9500; 36415; 36416; 96361; 96372; 96375; J0153; J0360; J1650; J1815; J2060; J3475; J3480; J3490; Q9967

== ENCOUNTER 2021-05-05 20:49 | Emergency (ER) | payer MEDICARE ==
[2021-05-05 23:12] LABS: #Basophils 0.1 thou/uL (0.0-0.2); #Eosinphils 0.3 thou/uL (0.0-0.7); #Lymphocytes 1.5 thou/uL (1.20-3.40); #Monocytes 0.6 thou/uL (0.11-0.59); #Neutrophils 7.5 thou/uL (1.40-6.50); %Basophils 0.6 % (0.0-1.0); %Lymphocytes 15.2 % (21.0-51.0); %Monocytes 5.7 % (0.0-10.0); %Neutrophils 75.5 % (42.0-75.0); Hemoglobin 9.5 g/dL (12.0-16.0); Mean Corpuscular HGB CONC 33.6 g/dL (32.0-36.0); Mean Corpuscular Hemoglobin 30.9 pg (27.0-31.0); Mean Platelet Volume 6.9 fL (7.4-10.4); Platelet Count 302 thou/uL (130-400); RBC Distribution Width 12.8 % (11.5-14.5); Red Blood Cell (RBC) Count 3.08 mill/uL (4.20-5.40)
[2021-05-05 23:33] LABS: ALT (SGPT) 10 U/L (8-55); AST (SGOT) 13 U/L (5-34); Albumin 2.5 g/dL (3.4-4.8); Alkaline Phosphatase 128 U/L (40-110); Anion Gap 13 mmol/L (10-20); BUN (Urea Nitrogen) 40 mg/dL (9.8-20.1); Bilirubin, Total 0.2 mg/dL (0.2-1.2); Calc. Creatinine Clearance 0 mL/min (70-130); Calcium 8.1 mg/dL (7.8-10.44); Carbon Dioxide 17 mmol/L (23-31); Chloride 113 mmol/L (98-107); Globulin 4.3 g/dL (2.4-3.5); Glucose 167 mg/dL (80-115); Potassium 4.1 mmol/L (3.5-5.1); Protein, Total 6.8 g/dL (5.8-8.1); Sodium 139 mmol/L (136-145)
== END 2021-05-06 01:57 | disposition home or self-care (01) ==
LOC: ERS 20:49
DX: N17.9 Acute kidney failure, unspecified (principal); E11.649 Type 2 diabetes mellitus with hypoglycemia without coma; I10 Essential (primary) hypertension; K21.9 Gastro-esophageal reflux disease without esophagitis
CPT/HCPCS: 36415; 36416; 80053; 85025; 99285

== ENCOUNTER 2021-05-25 12:48 | Inpatient (IN) | payer MEDICARE ==
[2021-05-25 13:18] LABS: #Basophils 0.1 thou/uL (0.0-0.2); #Eosinphils 0.3 thou/uL (0.0-0.7); #Lymphocytes 1.5 thou/uL (1.20-3.40); #Monocytes 0.6 thou/uL (0.11-0.59); #Neutrophils 7.9 thou/uL (1.40-6.50); %Basophils 0.6 % (0.0-1.0); %Eosinophils 2.5 % (0.0-10.0); %Lymphocytes 14.1 % (21.0-51.0); %Monocytes 5.9 % (0.0-10.0); %Neutrophils 76.9 % (42.0-75.0); Hemoglobin 10.1 g/dL (12.0-16.0); Mean Corpuscular HGB CONC 31.1 g/dL (32.0-36.0); Mean Corpuscular Volume 93.3 fL (78.0-98.0); Mean Platelet Volume 7.1 fL (7.4-10.4); Platelet Count 282 thou/uL (130-400); RBC Distribution Width 13.3 % (11.5-14.5); Red Blood Cell (RBC) Count 3.47 mill/uL (4.20-5.40); White Blood Cell (WBC) Count 10.3 thou/uL (4.8-10.8)
[2021-05-25 13:48] LABS: ALT (SGPT) 10 U/L (8-55); AST (SGOT) 14 U/L (5-34); Albumin 2.7 g/dL (3.4-4.8); Alkaline Phosphatase 147 U/L (40-110); Anion Gap 13 mmol/L (10-20); BUN (Urea Nitrogen) 26 mg/dL (9.8-20.1); Bilirubin, Total 0.3 mg/dL (0.2-1.2); Calc. Creatinine Clearance 0 mL/min (70-130); Calcium 7.9 mg/dL (7.8-10.44); Carbon Dioxide 16 mmol/L (23-31); Chloride 115 mmol/L (98-107); Globulin 4.3 g/dL (2.4-3.5); Potassium 3.7 mmol/L (3.5-5.1); Sodium 140 mmol/L (136-145)
[2021-05-25 13:52] LABS: Glucose 52 mg/dL (80-115)
[2021-05-25] MEDS ORDERED: Acetaminophen 500 MG TAB ONE (14:19)
[2021-05-25] MEDS ORDERED: Acetaminophen 325 MG TAB PO PRN (15:39)
[2021-05-25] MEDS ORDERED: Bisacodyl 10 MG SUPP PR PRN (15:39)
[2021-05-25] MEDS ORDERED: hydrALAZINE 20 MG/ML VIAL SLOW IVP PRN (15:39)
[2021-05-25] MEDS ORDERED: Dextrose 5% in Water 1,000 ML IV PRN (15:39)
[2021-05-25] MEDS ORDERED: Dextrose 50% Abboject 50 ML SYRINGE SLOW IVP PRN (15:39)
[2021-05-25] MEDS ORDERED: Ondansetron ODT 4 MG TAB PO PRN (15:39)
[2021-05-25] MEDS ORDERED: Loperamide HCl 2 MG CAP PO PRN (15:39)
[2021-05-25] MEDS ORDERED: Ondansetron PF 4 MG/2 ML Vial IVP PRN (15:39)
[2021-05-25] MEDS ORDERED: Calcium Carbonate 500 MG ChewTAB PO PRN (15:39)
[2021-05-25] MEDS ORDERED: Guaifenesin DM 100-10/5 ML UDCUP PO PRN (15:39)
[2021-05-25] MEDS ORDERED: Senokot S 8.6-50 MG TAB PO PRN (15:39)
[2021-05-25 17:05] LABS: Troponin I 0.012 ng/mL (< 0.028)
[2021-05-25] MEDS ORDERED: FLU VACC QS2021-22(65YR UP)/PF 240 MCG/0.7 ML SYRINGE IM ONE (18:00)
[2021-05-25] MEDS ORDERED: Sodium Bicarbonate 150 MEQ in Dextrose 5% in Water 1,000 ML IV SCH (18:00)
[2021-05-25] MEDS: hydrALAZINE 25 MG TAB PO SCH ×2 (18:18→20:27)
[2021-05-25] MEDS: Albumin 25% 25 GM/100 ML BOT IVPB SCH ×2 (18:19→23:50)
[2021-05-25] MEDS: Carvedilol 25 MG TAB PO SCH (18:19)
[2021-05-25 19:40] LABS: Troponin I 0.012 ng/mL (< 0.028)
[2021-05-25] MEDS: Sodium Bicarbonate Tab 325 MG TAB PO SCH (20:27)
[2021-05-25] MEDS: Heparin 5,000 UNITS/ML VIAL SC SCH (20:28)
[2021-05-25] MEDS: HYDROcodone/Acetaminophen 5/325 mg Tablet PO PRN (23:50)
[2021-05-26 02:00] LABS: Bilirubin Negative (Negative); Blood, Urine 2+ (Negative); Clarity Clear (Clear); Glucose, Urine (Dipstick) 300 mg/dL (Negative); Ketone, Urine Negative (Negative); Leukocyte Negative Leu/uL (Negative); Nitrite Negative (Negative); Protein, Urine (Dipstick) 300 mg/dL (Neg-Trace); Specific Gravity, Urine 1.026 (1.002-1.036); Squamous Epithelial 0-3 HPF (0-3); Urobilinogen Normal mg/dL (Less than 2); pH, Urine 6.5 (5.0-9.0)
[2021-05-26 02:02] LABS: Bacteria/HPF Rare-Few HPF (None Seen)
[2021-05-26 05:22] LABS: ALT (SGPT) 12 U/L (8-55); AST (SGOT) 19 U/L (5-34); Albumin 2.8 g/dL (3.4-4.8); Alkaline Phosphatase 112 U/L (40-110); Anion Gap 10 mmol/L (10-20); BUN (Urea Nitrogen) 29 mg/dL (9.8-20.1); Bilirubin, Total 0.2 mg/dL (0.2-1.2); Calc. Creatinine Clearance 15 mL/min (70-130); Calcium 7.2 mg/dL (7.8-10.44); Carbon Dioxide 20 mmol/L (23-31); Chloride 113 mmol/L (98-107); Glucose 91 mg/dL (80-115); Potassium 4.1 mmol/L (3.5-5.1); Protein, Total 5.8 g/dL (5.8-8.1); Sodium 139 mmol/L (136-145)
[2021-05-26 05:45] LABS: Hemoglobin 7.1 g/dL (12.0-16.0); Mean Corpuscular HGB CONC 33.5 g/dL (32.0-36.0); Mean Corpuscular Hemoglobin 31.5 pg (27.0-31.0); Mean Corpuscular Volume 93.8 fL (78.0-98.0); Mean Platelet Volume 7.1 fL (7.4-10.4); Platelet Count 177 thou/uL (130-400); RBC Distribution Width 13.4 % (11.5-14.5); Red Blood Cell (RBC) Count 2.26 mill/uL (4.20-5.40); White Blood Cell (WBC) Count 7.8 thou/uL (4.8-10.8)
[2021-05-26 06:07] LABS: Band 3 % (5-11); Eosinophils 1 % (0-10); Lymphocytes 25 % (21-51); MDiff Complete? YES; Monocytes 10 % (0-10); Neutrophil 61 % (42-75)
[2021-05-26] MEDS ORDERED: NIFEdipine XL 60 MG TAB PO SCH (09:00)
[2021-05-26] MEDS: Ferrous Sulfate 325 MG TAB PO SCH (09:05)
[2021-05-26] MEDS: hydrALAZINE 25 MG TAB PO SCH ×3 (09:05→17:16)
[2021-05-26] MEDS: Carvedilol 25 MG TAB PO SCH ×2 (09:05→17:16)
[2021-05-26] MEDS: Sodium Bicarbonate Tab 325 MG TAB PO SCH ×2 (09:05→18:07)
[2021-05-26] MEDS: Folic Acid/Vit B Comp W-C PO SCH (09:05)
[2021-05-26] MEDS: Heparin 5,000 UNITS/ML VIAL SC SCH ×3 (09:43→20:29)
[2021-05-26 11:01] LABS: Creatinine, Urine 144.55 mg/dL (47-110); Sodium, Urine Less than 20 mmol/L (Not Available)
[2021-05-26 11:07] LABS: SARS-CoV-2 PCR by NAA Not Detected (NotDetected)
[2021-05-26 11:52] LABS: Protein, Urine Random Quant Greater than 2000 mg/dL (1-14)
[2021-05-26] MEDS: Albumin 25% 25 GM/100 ML BOT IVPB SCH ×2 (11:58→17:32)
[2021-05-26 12:16] LABS: Iron 54 ug/dL (50-170); Iron Binding Capacity, Total 133 mcg/dL (265-497)
[2021-05-26] MEDS ORDERED: diphenhydrAMINE 50 MG/ML VIAL IVP SCH (13:30)
[2021-05-26] MEDS ORDERED: methylPREDNISolone Sod Succ 40 MG VIAL IVP SCH (13:30)
[2021-05-26] MEDS ORDERED: methylPREDNISolone Sod Succ 40 MG VIAL ONE (13:33)
[2021-05-26] MEDS ORDERED: Lorazepam 2 MG/ML VIAL ONE (13:43)
[2021-05-26] MEDS ORDERED: Midazolam HCl 2 mg/2 ml Vial ONE (14:04)
[2021-05-26] MEDS ORDERED: EPINEPHrine 4 MG in Dextrose 5% in Water 250 ML IV SCH (14:15)
[2021-05-26 14:21] LABS: #Basophils 0.1 thou/uL (0.0-0.2); #Eosinphils 0.3 thou/uL (0.0-0.7); #Lymphocytes 1.9 thou/uL (1.20-3.40); #Monocytes 0.6 thou/uL (0.11-0.59); #Neutrophils 5.7 thou/uL (1.40-6.50); %Basophils 0.9 % (0.0-1.0); %Lymphocytes 22.3 % (21.0-51.0); %Monocytes 7.3 % (0.0-10.0); %Neutrophils 66.4 % (42.0-75.0); Hemoglobin 7.7 g/dL (12.0-16.0); Mean Corpuscular HGB CONC 32.9 g/dL (32.0-36.0); Mean Corpuscular Hemoglobin 30.8 pg (27.0-31.0); Mean Corpuscular Volume 93.7 fL (78.0-98.0); Mean Platelet Volume 7.7 fL (7.4-10.4); Platelet Count 220 thou/uL (130-400); RBC Distribution Width 13.7 % (11.5-14.5); Red Blood Cell (RBC) Count 2.51 mill/uL (4.20-5.40); White Blood Cell (WBC) Count 8.6 thou/uL (4.8-10.8)
[2021-05-26 14:36] LABS: Troponin I 0.013 ng/mL (< 0.028)
[2021-05-26 14:49] LABS: ALT (SGPT) 16 U/L (8-55); AST (SGOT) 20 U/L (5-34); Albumin 3.1 g/dL (3.4-4.8); Alkaline Phosphatase 109 U/L (40-110); Anion Gap 16 mmol/L (10-20); BUN (Urea Nitrogen) 28 mg/dL (9.8-20.1); Bilirubin, Total 0.8 mg/dL (0.2-1.2); CK (CPK) 142 U/L (29-168); Calc. Creatinine Clearance 15 mL/min (70-130); Calcium 7.2 mg/dL (7.8-10.44); Carbon Dioxide 12 mmol/L (23-31); Chloride 109 mmol/L (98-107); Globulin 2.9 g/dL (2.4-3.5); Glucose 217 mg/dL (80-115); Potassium 4.5 mmol/L (3.5-5.1); Sodium 132 mmol/L (136-145)
[2021-05-26 15:22] LABS: pH, Arterial 7.47 (7.35-7.45)
[2021-05-26 15:23] LABS: Actual Bicarbonate (HCO3a) 16.8 mEq/L (22-28); Base Excess (BEa) -5.7 mEq/L (-2.0 to +3.0); CO2 Tension 23.4 mmHg (35.0-45.0); Calcium, Ionized (arterial) 0.94 mmol/L (1.12-1.30); Carboxyhemoglobin (COHb) 0.1 gm% (0.0-3.0); O2 Tension (PaO2), arterial 79.2 mmHg (> 80.0); Potassium - ABG Lab 3.83 mmol/L (3.70-5.30); Puncture Site LBA
[2021-05-26] MEDS ORDERED: Propofol BOLUS 1,000 MG/100 ML VIAL IV PRN (16:15)
[2021-05-26] MEDS ORDERED: Fentanyl CADD 100 ML IV SCH (16:15)
[2021-05-26] MEDS ORDERED: Fentanyl BOLUS 250 ML IVPB PRN (16:15)
[2021-05-26] MEDS ORDERED: DISCONTINUE PREVIOUS NARCOTIC PAIN MEDICATIONS AND BENZODIAZEPINES FS SCH (16:15)
[2021-05-26] MEDS ORDERED: Propofol 1,000 MG/100 ML VIAL IV PRN (16:15)
[2021-05-26] MEDS ORDERED: Morphine 4 MG/ML VIAL SLOW IVP PRN (16:18)
[2021-05-26] MEDS ORDERED: Calcium Gluconate 4.6 MEQ in Sodium Chloride 0.9% 100 ML IVPB SCH (16:45)
[2021-05-26] MEDS: Lorazepam 2 MG/ML VIAL SLOW IVP PRN ×2 (17:30→18:46)
[2021-05-26] MEDS: HumaLOG 300 UNITS/3 ML VIAL SC PRN ×2 (17:47→20:30)
[2021-05-26] MEDS: Sodium Chloride 0.9% 1,000 ML IV SCH (20:23)
[2021-05-27 04:04] LABS: Anion Gap 11 mmol/L (10-20); BUN (Urea Nitrogen) 39 mg/dL (9.8-20.1); BUN/Creatinine Ratio 9.22; Calc. Creatinine Clearance 14 mL/min (70-130); Calcium 7.2 mg/dL (7.8-10.44); Carbon Dioxide 18 mmol/L (23-31); Chloride 106 mmol/L (98-107); Glucose 336 mg/dL (80-115); Phosphorus 5.1 mg/dL (2.3-4.7); Potassium 4.4 mmol/L (3.5-5.1); Sodium 131 mmol/L (136-145)
[2021-05-27 05:49] LABS: #Monocytes 0.6 thou/uL (0.11-0.59); #Neutrophils 9.8 thou/uL (1.40-6.50); %Basophils 0.1 % (0.0-1.0); %Eosinophils 0.1 % (0.0-10.0); %Lymphocytes 8.6 % (21.0-51.0); %Monocytes 4.9 % (0.0-10.0); %Neutrophils 86.3 % (42.0-75.0); Hemoglobin 7.9 g/dL (12.0-16.0); Mean Corpuscular HGB CONC 33.8 g/dL (32.0-36.0); Mean Corpuscular Hemoglobin 31.4 pg (27.0-31.0); Mean Platelet Volume 7.5 fL (7.4-10.4); Platelet Count 227 thou/uL (130-400); Platelet Morphology Comment Appears Adequate; RBC Distribution Width 13.9 % (11.5-14.5); Red Blood Cell (RBC) Count 2.53 mill/uL (4.20-5.40); White Blood Cell (WBC) Count 11.4 thou/uL (4.8-10.8)
[2021-05-27] MEDS: HumaLOG 300 UNITS/3 ML VIAL SC PRN (06:13)
[2021-05-27] MEDS: Sodium Chloride 0.9% 1,000 ML IV SCH ×4 (06:14→20:11)
[2021-05-27] MEDS: Ferrous Sulfate 325 MG TAB PO SCH (09:38)
[2021-05-27] MEDS: Heparin 5,000 UNITS/ML VIAL SC SCH ×3 (09:38→20:03)
[2021-05-27] MEDS: Folic Acid/Vit B Comp W-C PO SCH (09:38)
[2021-05-27] MEDS ORDERED: Piperacillin/Tazobactam 3.375 GM in Sodium Chloride 0.9% 100 ML IVPB SCH (14:15)
[2021-05-27] MEDS: Ergocalciferol 1.25 MG(50,000 UNITS) CAP PO SCH (14:54)
[2021-05-27] MEDS: Piperacillin/Tazobactam 3.375 GM in Sodium Chloride 0.9% 100 ML IVPB SCH (19:17)
[2021-05-27 21:35] LABS: 24 Hr Creatinine 348.11 mg/24 hr (710-1650); Creatinine, Urine 92.83 mg/dL (47-110)
[2021-05-28] MEDS: Sodium Chloride 0.9% 1,000 ML IV SCH (02:43)
[2021-05-28 03:48] LABS: #Basophils 0.1 thou/uL (0.0-0.2); #Eosinphils 0.1 thou/uL (0.0-0.7); #Lymphocytes 2.3 thou/uL (1.20-3.40); %Basophils 0.4 % (0.0-1.0); %Lymphocytes 14.7 % (21.0-51.0); %Monocytes 6.3 % (0.0-10.0); %Neutrophils 77.7 % (42.0-75.0); Hemoglobin 8.2 g/dL (12.0-16.0); Mean Corpuscular HGB CONC 33.3 g/dL (32.0-36.0); Mean Corpuscular Hemoglobin 31.1 pg (27.0-31.0); Mean Corpuscular Volume 93.6 fL (78.0-98.0); Platelet Count 214 thou/uL (130-400); RBC Distribution Width 14.1 % (11.5-14.5); Red Blood Cell (RBC) Count 2.63 mill/uL (4.20-5.40); White Blood Cell (WBC) Count 15.5 thou/uL (4.8-10.8)
[2021-05-28 04:18] LABS: Anion Gap 13 mmol/L (10-20); BUN (Urea Nitrogen) 39 mg/dL (9.8-20.1); Calc. Creatinine Clearance 16 mL/min (70-130); Calcium 7.1 mg/dL (7.8-10.44); Carbon Dioxide 15 mmol/L (23-31); Chloride 111 mmol/L (98-107); Glucose 90 mg/dL (80-115); Sodium 135 mmol/L (136-145)
[2021-05-28] MEDS: Piperacillin/Tazobactam 3.375 GM in Sodium Chloride 0.9% 100 ML IVPB SCH ×2 (05:02→17:43)
[2021-05-28 05:37] LABS: Kappa Lambda Light Chain Ratio 0.98 (0.26-1.65); Lambda Light Chain 194.3 mg/L (5.7-26.3)
[2021-05-28 06:56] LABS: Phosphorus 4.8 mg/dL (2.3-4.7)
[2021-05-28] MEDS: Heparin 5,000 UNITS/ML VIAL SC SCH ×3 (08:34→20:18)
[2021-05-28] MEDS: Ferrous Sulfate 325 MG TAB PO SCH (08:34)
[2021-05-28] MEDS: Folic Acid/Vit B Comp W-C PO SCH (08:34)
[2021-05-28] MEDS: Albumin 25% 25 GM/100 ML BOT IVPB SCH ×3 (11:51→23:55)
[2021-05-28] MEDS ORDERED: Sodium Bicarbonate 150 MEQ in Dextrose 5% in Water 1,000 ML IV SCH (12:00)
[2021-05-28] MEDS: HYDROcodone/Acetaminophen 5/325 mg Tablet PO PRN (15:31)
[2021-05-28] MEDS ORDERED: Amlodipine 5 MG TAB PO SCH (16:15)
[2021-05-29] MEDS: Piperacillin/Tazobactam 3.375 GM in Sodium Chloride 0.9% 100 ML IVPB SCH (05:09)
[2021-05-29 07:15] LABS: Albumin 3.3 g/dL (3.4-4.8); Anion Gap 13 mmol/L (10-20); BUN (Urea Nitrogen) 41 mg/dL (9.8-20.1); Calc. Creatinine Clearance 14 mL/min (70-130); Calcium 7.5 mg/dL (7.8-10.44); Carbon Dioxide 16 mmol/L (23-31); Chloride 114 mmol/L (98-107); Glucose 122 mg/dL (80-115); Phosphorus 4.8 mg/dL (2.3-4.7); Potassium 3.4 mmol/L (3.5-5.1); Sodium 140 mmol/L (136-145)
[2021-05-29] MEDS: Ferrous Sulfate 325 MG TAB PO SCH (08:57)
[2021-05-29] MEDS: Calcium Carbonate 600 MG TAB PO SCH (08:57)
[2021-05-29] MEDS: Amlodipine 10 MG TAB PO SCH (08:57)
[2021-05-29] MEDS: Folic Acid/Vit B Comp W-C PO SCH (08:57)
[2021-05-29] MEDS: Heparin 5,000 UNITS/ML VIAL SC SCH ×3 (08:59→20:44)
[2021-05-29] MEDS ORDERED: Sodium Bicarbonate 150 MEQ in Dextrose 5% in Water 1,000 ML IV SCH (09:00)
[2021-05-29] MEDS ORDERED: Spironolactone 100 MG TAB PO SCH (09:00)
[2021-05-29] MEDS ORDERED: Potassium Chloride 20 MEQ TAB PO SCH (09:00)
[2021-05-29] MEDS ORDERED: Torsemide 20 MG TAB PO SCH (09:00)
[2021-05-29] MEDS ORDERED: Furosemide 40 MG/4 ML VIAL SLOW IVP SCH (09:15)
[2021-05-29] MEDS: Albumin 25% 25 GM/100 ML BOT IVPB SCH ×2 (11:36→17:47)
[2021-05-29] MEDS: HYDROcodone/Acetaminophen 5/325 mg Tablet PO PRN (12:36)
[2021-05-29 15:35] LABS: Albumin 3.8 g/dL (3.4-4.8); Anion Gap 13 mmol/L (10-20); BUN (Urea Nitrogen) 43 mg/dL (9.8-20.1); BUN/Creatinine Ratio 10.09; Calc. Creatinine Clearance 14 mL/min (70-130); Calcium 7.5 mg/dL (7.8-10.44); Carbon Dioxide 19 mmol/L (23-31); Chloride 112 mmol/L (98-107); Glucose 238 mg/dL (80-115); Phosphorus 4.9 mg/dL (2.3-4.7); Potassium 3.9 mmol/L (3.5-5.1); Sodium 140 mmol/L (136-145)
[2021-05-29] MEDS: HumaLOG 300 UNITS/3 ML VIAL SC PRN (17:54)
[2021-05-29] MEDS: Amoxicillin/Potassium Clav 875 MG TAB PO SCH (20:43)
[2021-05-30] MEDS: hydrALAZINE 20 MG/ML VIAL SLOW IVP PRN (00:44)
[2021-05-30 06:14] LABS: Hemoglobin 8.1 g/dL (12.0-16.0); Mean Corpuscular Hemoglobin 31.3 pg (27.0-31.0); Mean Corpuscular Volume 92.2 fL (78.0-98.0); Mean Platelet Volume 7.9 fL (7.4-10.4); Platelet Count 200 thou/uL (130-400); RBC Distribution Width 13.6 % (11.5-14.5); Red Blood Cell (RBC) Count 2.59 mill/uL (4.20-5.40); White Blood Cell (WBC) Count 11.3 thou/uL (4.8-10.8)
[2021-05-30 06:33] LABS: Albumin 3.5 g/dL (3.4-4.8); Anion Gap 16 mmol/L (10-20); BUN (Urea Nitrogen) 42 mg/dL (9.8-20.1); BUN/Creatinine Ratio 10.17; Calc. Creatinine Clearance 14 mL/min (70-130); Calcium 7.8 mg/dL (7.8-10.44); Carbon Dioxide 17 mmol/L (23-31); Chloride 113 mmol/L (98-107); Glucose 143 mg/dL (80-115); Phosphorus 4.2 mg/dL (2.3-4.7); Potassium 3.6 mmol/L (3.5-5.1); Sodium 142 mmol/L (136-145)
[2021-05-30] MEDS: Sodium Bicarbonate Tab 325 MG TAB PO SCH ×3 (08:41→20:48)
[2021-05-30] MEDS: Amlodipine 10 MG TAB PO SCH (08:41)
[2021-05-30] MEDS: Ferrous Sulfate 325 MG TAB PO SCH (08:42)
[2021-05-30] MEDS: Calcium Carbonate 600 MG TAB PO SCH (08:42)
[2021-05-30] MEDS: Amoxicillin/Potassium Clav 875 MG TAB PO SCH (08:42)
[2021-05-30] MEDS: Spironolactone 100 MG TAB PO SCH (08:42)
[2021-05-30] MEDS: Heparin 5,000 UNITS/ML VIAL SC SCH ×3 (08:42→20:48)
[2021-05-30] MEDS: Folic Acid/Vit B Comp W-C PO SCH (08:42)
[2021-05-30] MEDS: HumaLOG 300 UNITS/3 ML VIAL SC PRN ×2 (12:35→17:17)
[2021-05-30] MEDS ORDERED: Sodium Bicarbonate 150 MEQ in Sterile Water Injection 1,000 ML IV SCH (15:15)
[2021-05-30] MEDS: HYDROcodone/Acetaminophen 5/325 mg Tablet PO PRN (17:29)
[2021-05-30] MEDS: Amoxicillin/Potassium Clav 500 MG TAB PO SCH (20:47)
[2021-05-30] MEDS: Carvedilol 6.25 MG TAB PO SCH (20:48)
[2021-05-30] MEDS: Simethicone Chewable 80 MG TAB PO PRN (20:49)
[2021-05-31 07:06] LABS: Albumin 3.4 g/dL (3.4-4.8); Anion Gap 15 mmol/L (10-20); BUN (Urea Nitrogen) 41 mg/dL (9.8-20.1); BUN/Creatinine Ratio 11.02; Calc. Creatinine Clearance 16 mL/min (70-130); Calcium 7.5 mg/dL (7.8-10.44); Carbon Dioxide 17 mmol/L (23-31); Chloride 110 mmol/L (98-107); Glucose 112 mg/dL (80-115); Magnesium 1.5 mg/dL (1.6-2.6); Phosphorus 4.1 mg/dL (2.3-4.7); Phosphorus 4.2 mg/dL (2.3-4.7); Potassium 3.4 mmol/L (3.5-5.1); Sodium 139 mmol/L (136-145)
[2021-05-31 07:23] LABS: Mean Corpuscular HGB CONC 31.8 g/dL (32.0-36.0); Mean Corpuscular Hemoglobin 31.6 pg (27.0-31.0); Mean Corpuscular Volume 99.4 fL (78.0-98.0); RBC Distribution Width 14.5 % (11.5-14.5); Red Blood Cell (RBC) Count 2.54 mill/uL (4.20-5.40)
[2021-05-31] MEDS ORDERED: Potassium Chloride 20 MEQ TAB PO SCH (07:45)
[2021-05-31] MEDS ORDERED: Magnesium 2 GM/50 ML 2 GM in Premix Bag 1 BAG IVPB SCH (08:00)
[2021-05-31 08:46] LABS: Eosinophils 2 % (0-10); Lymphocytes 24 % (21-51); MDiff Complete? YES; Mean Platelet Volume 8.5 fL (7.4-10.4); Monocytes 6 % (0-10); Neutrophil 68 % (42-75); Platelet Count 195 thou/uL (130-400); Platelet Morphology Comment Appears Adequate; White Blood Cell (WBC) Count 10.5 thou/uL (4.8-10.8)
[2021-05-31] MEDS: Folic Acid/Vit B Comp W-C PO SCH (09:19)
[2021-05-31] MEDS: Calcium Carbonate 600 MG TAB PO SCH (09:19)
[2021-05-31] MEDS: Ferrous Sulfate 325 MG TAB PO SCH (09:20)
[2021-05-31] MEDS: Heparin 5,000 UNITS/ML VIAL SC SCH (09:21)
[2021-05-31] MEDS: Sodium Bicarbonate Tab 325 MG TAB PO SCH ×3 (09:21→21:02)
[2021-05-31] MEDS: NIFEdipine XL 60 MG TAB PO SCH (09:21)
[2021-05-31] MEDS: Carvedilol 6.25 MG TAB PO SCH ×2 (09:21→21:03)
[2021-05-31] MEDS: Amoxicillin/Potassium Clav 500 MG TAB PO SCH ×2 (10:37→21:03)
[2021-05-31] MEDS: Spironolactone 100 MG TAB PO SCH (10:37)
[2021-05-31] MEDS: HYDROcodone/Acetaminophen 5/325 mg Tablet PO PRN ×2 (15:22→21:31)
[2021-05-31] MEDS ORDERED: Lidocaine 2% Viscous Solution 10 ML, Aluminum & Magnesium Hydroxide 30 ML SSW SCH (17:30)
[2021-05-31 18:01] LABS: ALT (SGPT) 21 U/L (8-55); AST (SGOT) 13 U/L (5-34); Albumin 3.4 g/dL (3.4-4.8); Alkaline Phosphatase 114 U/L (40-110); Bilirubin, Direct 0.2 mg/dL (0.1-0.3); Bilirubin, Total 0.3 mg/dL (0.2-1.2); Protein, Total 6.1 g/dL (5.8-8.1)
[2021-06-01 07:17] LABS: #Basophils 0.1 thou/uL (0.0-0.2); #Eosinphils 0.3 thou/uL (0.0-0.7); #Lymphocytes 2.2 thou/uL (1.20-3.40); #Monocytes 0.6 thou/uL (0.11-0.59); #Neutrophils 6.2 thou/uL (1.40-6.50); %Basophils 0.9 % (0.0-1.0); %Eosinophils 3.2 % (0.0-10.0); %Lymphocytes 23.9 % (21.0-51.0); %Neutrophils 66.1 % (42.0-75.0); Hemoglobin 7.8 g/dL (12.0-16.0); Mean Corpuscular Hemoglobin 30.9 pg (27.0-31.0); Mean Corpuscular Volume 93.7 fL (78.0-98.0); Platelet Count 215 thou/uL (130-400); RBC Distribution Width 13.7 % (11.5-14.5); Red Blood Cell (RBC) Count 2.54 mill/uL (4.20-5.40); White Blood Cell (WBC) Count 9.3 thou/uL (4.8-10.8)
[2021-06-01 07:37] LABS: ALT (SGPT) 20 U/L (8-55); AST (SGOT) 13 U/L (5-34); Albumin 3.2 g/dL (3.4-4.8); Alkaline Phosphatase 116 U/L (40-110); Anion Gap 13 mmol/L (10-20); BUN (Urea Nitrogen) 49 mg/dL (9.8-20.1); Bilirubin, Total 0.2 mg/dL (0.2-1.2); Calc. Creatinine Clearance 13 mL/min (70-130); Calcium 7.7 mg/dL (7.8-10.44); Carbon Dioxide 21 mmol/L (23-31); Chloride 110 mmol/L (98-107); Globulin 2.7 g/dL (2.4-3.5); Glucose 166 mg/dL (80-115); Lipase 263 U/L (8-78); Phosphorus 4.9 mg/dL (2.3-4.7); Potassium 3.8 mmol/L (3.5-5.1); Protein, Total 5.9 g/dL (5.8-8.1); Sodium 140 mmol/L (136-145)
[2021-06-01 07:38] LABS: Albumin 3.2 g/dL (3.4-4.8); Anion Gap 15 mmol/L (10-20); BUN (Urea Nitrogen) 49 mg/dL (9.8-20.1); BUN/Creatinine Ratio 11.16; Calc. Creatinine Clearance 14 mL/min (70-130); Calcium 7.7 mg/dL (7.8-10.44); Carbon Dioxide 20 mmol/L (23-31); Chloride 110 mmol/L (98-107); Glucose 165 mg/dL (80-115); Phosphorus 4.8 mg/dL (2.3-4.7); Potassium 3.8 mmol/L (3.5-5.1); Sodium 141 mmol/L (136-145)
[2021-06-01 07:39] LABS: INR-International Normal Ratio 1.1; PTT 39.9 sec (22.9-36.1); Prothrombin Time 14.2 sec (12.0-14.7)
[2021-06-01] MEDS: Spironolactone 100 MG TAB PO SCH (09:16)
[2021-06-01] MEDS: Carvedilol 6.25 MG TAB PO SCH ×2 (09:16→21:04)
[2021-06-01] MEDS: Sodium Bicarbonate Tab 325 MG TAB PO SCH ×3 (09:16→21:00)
[2021-06-01] MEDS: Ferrous Sulfate 325 MG TAB PO SCH (09:16)
[2021-06-01] MEDS: NIFEdipine XL 60 MG TAB PO SCH (09:16)
[2021-06-01] MEDS: Amoxicillin/Potassium Clav 500 MG TAB PO SCH ×2 (09:17→21:00)
[2021-06-01] MEDS: Folic Acid/Vit B Comp W-C PO SCH (09:17)
[2021-06-01] MEDS: Calcium Carbonate 600 MG TAB PO SCH (09:17)
[2021-06-01] MEDS: HYDROcodone/Acetaminophen 5/325 mg Tablet PO PRN ×2 (10:33→21:00)
[2021-06-01] MEDS ORDERED: Lidocaine 2% Viscous Solution 10 ML, Aluminum & Magnesium Hydroxide 30 ML SSP PRN (11:30)
[2021-06-01] MEDS ORDERED: Lorazepam 2 MG/ML VIAL SLOW IVP SCH (11:30)
[2021-06-01] MEDS ORDERED: Lorazepam 2 MG/ML VIAL SLOW IVP PRN (11:30)
[2021-06-01] MEDS: HumaLOG 300 UNITS/3 ML VIAL SC PRN (13:37)
[2021-06-01 19:13] LABS: Albumin, PEP 24hr Ur 83.1 % (NOT ESTAB.); Alpha-1-Globulin, PEP 24h Ur 1.8 % (NOT ESTAB.); Alpha-2-Globulin, PEP 24h Ur 3.5 % (NOT ESTAB.); Gamma Globulin, PEP 24h Ur 9.6 % (NOT ESTAB.); M-Spike,% PEP 24hr Ur Not Observed % (Not Observed); Protein, PEP 24hr calculated 4803 mg/24 hr (30-150); Protein, Urine 1280.8 mg/dL (Not Estab.)
[2021-06-02] MEDS: Simethicone Chewable 80 MG TAB PO PRN ×2 (03:31→20:58)
[2021-06-02 06:26] LABS: #Basophils 0.1 thou/uL (0.0-0.2); #Eosinphils 0.5 thou/uL (0.0-0.7); #Lymphocytes 2.6 thou/uL (1.20-3.40); #Monocytes 0.8 thou/uL (0.11-0.59); #Neutrophils 8.4 thou/uL (1.40-6.50); %Basophils 0.9 % (0.0-1.0); %Eosinophils 3.7 % (0.0-10.0); %Lymphocytes 21.4 % (21.0-51.0); %Monocytes 6.5 % (0.0-10.0); %Neutrophils 67.5 % (42.0-75.0); Hemoglobin 8.8 g/dL (12.0-16.0); Mean Corpuscular HGB CONC 34.1 g/dL (32.0-36.0); Mean Corpuscular Hemoglobin 31.7 pg (27.0-31.0); Mean Platelet Volume 7.9 fL (7.4-10.4); Platelet Count 259 thou/uL (130-400); RBC Distribution Width 13.9 % (11.5-14.5); Red Blood Cell (RBC) Count 2.76 mill/uL (4.20-5.40); White Blood Cell (WBC) Count 12.4 thou/uL (4.8-10.8)
[2021-06-02 06:54] LABS: ALT (SGPT) 19 U/L (8-55); AST (SGOT) 15 U/L (5-34); Albumin 3.3 g/dL (3.4-4.8); Alkaline Phosphatase 117 U/L (40-110); Anion Gap 18 mmol/L (10-20); BUN (Urea Nitrogen) 48 mg/dL (9.8-20.1); Bilirubin, Total 0.2 mg/dL (0.2-1.2); Calc. Creatinine Clearance 12 mL/min (70-130); Carbon Dioxide 16 mmol/L (23-31); Chloride 111 mmol/L (98-107); Cholesterol 103 mg/dl (< 200 Desired); Globulin 3.1 g/dL (2.4-3.5); Glucose 132 mg/dL (80-115); HDL Cholesterol 51 mg/dL (>60 Neg Risk); LDL Cholesterol, Calculated 33 mg/dL; Phosphorus 4.8 mg/dL (2.3-4.7); Protein, Total 6.4 g/dL (5.8-8.1); Sodium 141 mmol/L (136-145); Triglycerides 95 mg/dL (Less than 150)
[2021-06-02] MEDS: Amoxicillin/Potassium Clav 500 MG TAB PO SCH ×2 (08:29→20:59)
[2021-06-02] MEDS: Sodium Bicarbonate Tab 325 MG TAB PO SCH ×3 (08:29→20:59)
[2021-06-02] MEDS: Spironolactone 100 MG TAB PO SCH (08:29)
[2021-06-02] MEDS: Folic Acid/Vit B Comp W-C PO SCH (08:29)
[2021-06-02] MEDS: Calcium Carbonate 600 MG TAB PO SCH (08:30)
[2021-06-02] MEDS: Ferrous Sulfate 325 MG TAB PO SCH (08:30)
[2021-06-02] MEDS: NIFEdipine XL 60 MG TAB PO SCH (08:30)
[2021-06-02] MEDS: Carvedilol 6.25 MG TAB PO SCH ×2 (08:30→21:09)
[2021-06-02] MEDS ORDERED: Lorazepam 2 MG/ML VIAL SLOW IVP PRN (09:53)
[2021-06-02] MEDS ORDERED: Furosemide 100 MG/10 ML VIAL SLOW IVP SCH (16:00)
[2021-06-02] MEDS: HYDROcodone/Acetaminophen 5/325 mg Tablet PO PRN ×2 (16:36→20:58)
[2021-06-02] MEDS: HumaLOG 300 UNITS/3 ML VIAL SC PRN (20:57)
[2021-06-03 04:07] LABS: Legionella Urinary Ag Negative (Negative); Strep pneumo Urine Ag NEGATIVE (NEGATIVE)
[2021-06-03 08:13] LABS: #Basophils 0.1 thou/uL (0.0-0.2); #Eosinphils 0.4 thou/uL (0.0-0.7); #Lymphocytes 1.9 thou/uL (1.20-3.40); #Monocytes 0.8 thou/uL (0.11-0.59); #Neutrophils 8.2 thou/uL (1.40-6.50); %Basophils 0.6 % (0.0-1.0); %Eosinophils 3.9 % (0.0-10.0); %Lymphocytes 16.3 % (21.0-51.0); %Neutrophils 72.2 % (42.0-75.0); Hemoglobin 8.6 g/dL (12.0-16.0); Mean Corpuscular Hemoglobin 30.7 pg (27.0-31.0); Mean Platelet Volume 7.7 fL (7.4-10.4); Platelet Count 240 thou/uL (130-400); RBC Distribution Width 13.7 % (11.5-14.5); Red Blood Cell (RBC) Count 2.81 mill/uL (4.20-5.40); White Blood Cell (WBC) Count 11.3 thou/uL (4.8-10.8)
[2021-06-03] MEDS ORDERED: Lorazepam 2 MG/ML VIAL SLOW IVP PRN (08:19)
[2021-06-03] MEDS: NIFEdipine XL 60 MG TAB PO SCH (08:20)
[2021-06-03] MEDS: Carvedilol 6.25 MG TAB PO SCH ×2 (08:20→17:34)
[2021-06-03] MEDS: Ferrous Sulfate 325 MG TAB PO SCH (08:20)
[2021-06-03] MEDS: Amoxicillin/Potassium Clav 500 MG TAB PO SCH ×2 (08:20→20:32)
[2021-06-03] MEDS: Ergocalciferol 1.25 MG(50,000 UNITS) CAP PO SCH (08:20)
[2021-06-03] MEDS: Folic Acid/Vit B Comp W-C PO SCH (08:20)
[2021-06-03] MEDS: Calcium Carbonate 600 MG TAB PO SCH (08:20)
[2021-06-03] MEDS: Spironolactone 100 MG TAB PO SCH (08:21)
[2021-06-03] MEDS: Sodium Bicarbonate Tab 325 MG TAB PO SCH ×3 (08:23→20:33)
[2021-06-03 08:36] LABS: INR-International Normal Ratio 1.1; Prothrombin Time 14.1 sec (12.0-14.7)
[2021-06-03 08:41] LABS: ALT (SGPT) 17 U/L (8-55); AST (SGOT) 12 U/L (5-34); Albumin 3.4 g/dL (3.4-4.8); Alkaline Phosphatase 122 U/L (40-110); Anion Gap 17 mmol/L (10-20); BUN (Urea Nitrogen) 48 mg/dL (9.8-20.1); Bilirubin, Total 0.2 mg/dL (0.2-1.2); Calc. Creatinine Clearance 12 mL/min (70-130); Calcium 7.6 mg/dL (7.8-10.44); Carbon Dioxide 20 mmol/L (23-31); Chloride 109 mmol/L (98-107); Globulin 2.6 g/dL (2.4-3.5); Glucose 129 mg/dL (80-115); Magnesium 1.9 mg/dL (1.6-2.6); Phosphorus 4.9 mg/dL (2.3-4.7); Potassium 3.8 mmol/L (3.5-5.1); Sodium 142 mmol/L (136-145)
[2021-06-03] MEDS: hydrALAZINE 20 MG/ML VIAL SLOW IVP PRN (09:47)
[2021-06-03] MEDS ORDERED: Fentanyl 100 MCG/2 ML VIAL ONE (10:06)
[2021-06-03] MEDS ORDERED: Sodium Bicarbonate 2.5 MEQ/5 ML VIAL ONE (10:06)
[2021-06-03] MEDS ORDERED: Midazolam HCl 2 mg/2 ml Vial ONE (10:06)
[2021-06-03] MEDS ORDERED: hydrALAZINE 20 MG/ML VIAL SLOW IVP SCH (10:30)
[2021-06-03] MEDS ORDERED: hydrALAZINE 20 MG/ML VIAL ONE (10:30)
[2021-06-03] MEDS ORDERED: Lorazepam 2 MG/ML VIAL SLOW IVP STA (10:58)
[2021-06-03] MEDS: Furosemide 40 MG/4 ML VIAL SLOW IVP SCH ×2 (11:15→20:32)
[2021-06-03 11:32] LABS: SARS-CoV-2 PCR by NAA Not Detected (NotDetected)
[2021-06-03] MEDS: HYDROcodone/Acetaminophen 5/325 mg Tablet PO PRN (20:34)
[2021-06-04] MEDS ORDERED: cloNIDine 0.1 MG TAB PO SCH (08:37)
[2021-06-04 08:39] LABS: #Basophils 0.1 thou/uL (0.0-0.2); #Eosinphils 0.4 thou/uL (0.0-0.7); #Lymphocytes 1.8 thou/uL (1.20-3.40); #Monocytes 0.6 thou/uL (0.11-0.59); #Neutrophils 7.5 thou/uL (1.40-6.50); %Basophils 0.7 % (0.0-1.0); %Eosinophils 3.5 % (0.0-10.0); %Lymphocytes 17.1 % (21.0-51.0); %Monocytes 5.9 % (0.0-10.0); %Neutrophils 72.8 % (42.0-75.0); Hemoglobin 8.9 g/dL (12.0-16.0); Mean Corpuscular HGB CONC 32.2 g/dL (32.0-36.0); Mean Corpuscular Hemoglobin 30.2 pg (27.0-31.0); Mean Corpuscular Volume 93.8 fL (78.0-98.0); Mean Platelet Volume 7.7 fL (7.4-10.4); Platelet Count 274 thou/uL (130-400); RBC Distribution Width 13.9 % (11.5-14.5); Red Blood Cell (RBC) Count 2.96 mill/uL (4.20-5.40); White Blood Cell (WBC) Count 10.4 thou/uL (4.8-10.8)
[2021-06-04] MEDS: Sodium Bicarbonate Tab 325 MG TAB PO SCH ×3 (08:49→21:06)
[2021-06-04] MEDS: Ferrous Sulfate 325 MG TAB PO SCH (08:50)
[2021-06-04] MEDS: Spironolactone 100 MG TAB PO SCH (08:51)
[2021-06-04] MEDS: Calcium Carbonate 600 MG TAB PO SCH (08:51)
[2021-06-04] MEDS: Carvedilol 6.25 MG TAB PO SCH ×2 (08:51→17:39)
[2021-06-04] MEDS: Folic Acid/Vit B Comp W-C PO SCH (08:51)
[2021-06-04] MEDS: NIFEdipine XL 60 MG TAB PO SCH (08:51)
[2021-06-04] MEDS: Amoxicillin/Potassium Clav 500 MG TAB PO SCH ×2 (08:52→21:07)
[2021-06-04] MEDS: Furosemide 40 MG/4 ML VIAL SLOW IVP SCH ×2 (08:52→21:07)
[2021-06-04 09:04] LABS: ALT (SGPT) 17 U/L (8-55); AST (SGOT) 13 U/L (5-34); Albumin 3.3 g/dL (3.4-4.8); Alkaline Phosphatase 124 U/L (40-110); Anion Gap 17 mmol/L (10-20); BUN (Urea Nitrogen) 44 mg/dL (9.8-20.1); Bilirubin, Total 0.3 mg/dL (0.2-1.2); Calc. Creatinine Clearance 12 mL/min (70-130); Calcium 8.1 mg/dL (7.8-10.44); Carbon Dioxide 19 mmol/L (23-31); Chloride 110 mmol/L (98-107); Globulin 3.1 g/dL (2.4-3.5); Glucose 126 mg/dL (80-115); Magnesium 1.9 mg/dL (1.6-2.6); Phosphorus 4.5 mg/dL (2.3-4.7); Potassium 3.7 mmol/L (3.5-5.1); Protein, Total 6.4 g/dL (5.8-8.1); Sodium 142 mmol/L (136-145)
[2021-06-04] MEDS: HumaLOG 300 UNITS/3 ML VIAL SC PRN (11:53)
[2021-06-04] MEDS ORDERED: Polyvinyl Alcohol 1.4%/Povidone 0.6% Opth Drops R EYE SCH (14:15)
[2021-06-04] MEDS ORDERED: NIFEdipine XL 30 MG TAB PO SCH (21:00)
[2021-06-05 07:36] LABS: #Basophils 0.1 thou/uL (0.0-0.2); #Eosinphils 0.3 thou/uL (0.0-0.7); #Monocytes 0.6 thou/uL (0.11-0.59); #Neutrophils 6.2 thou/uL (1.40-6.50); %Basophils 0.6 % (0.0-1.0); %Lymphocytes 21.6 % (21.0-51.0); %Monocytes 6.8 % (0.0-10.0); Hemoglobin 8.4 g/dL (12.0-16.0); Mean Corpuscular Hemoglobin 31.4 pg (27.0-31.0); Mean Platelet Volume 7.5 fL (7.4-10.4); Platelet Count 236 thou/uL (130-400); RBC Distribution Width 14.4 % (11.5-14.5); Red Blood Cell (RBC) Count 2.67 mill/uL (4.20-5.40); White Blood Cell (WBC) Count 9.1 thou/uL (4.8-10.8)
[2021-06-05 07:59] LABS: ALT (SGPT) 14 U/L (8-55); AST (SGOT) 9 U/L (5-34); Albumin 3.3 g/dL (3.4-4.8); Alkaline Phosphatase 120 U/L (40-110); Anion Gap 14 mmol/L (10-20); BUN (Urea Nitrogen) 48 mg/dL (9.8-20.1); Bilirubin, Total 0.2 mg/dL (0.2-1.2); Calc. Creatinine Clearance 11 mL/min (70-130); Calcium 7.5 mg/dL (7.8-10.44); Carbon Dioxide 21 mmol/L (23-31); Chloride 107 mmol/L (98-107); Globulin 2.8 g/dL (2.4-3.5); Glucose 161 mg/dL (80-115); Magnesium 1.8 mg/dL (1.6-2.6); Potassium 3.6 mmol/L (3.5-5.1); Protein, Total 6.1 g/dL (5.8-8.1); Sodium 138 mmol/L (136-145)
[2021-06-05] MEDS: NIFEdipine XL 60 MG TAB PO SCH ×2 (08:24→20:04)
[2021-06-05] MEDS: Folic Acid/Vit B Comp W-C PO SCH (08:24)
[2021-06-05] MEDS: Sodium Bicarbonate Tab 325 MG TAB PO SCH ×3 (08:24→20:04)
[2021-06-05] MEDS: Calcium Carbonate 600 MG TAB PO SCH (08:24)
[2021-06-05] MEDS: Carvedilol 6.25 MG TAB PO SCH ×2 (08:24→16:51)
[2021-06-05] MEDS: Ferrous Sulfate 325 MG TAB PO SCH (08:25)
[2021-06-05] MEDS: Amoxicillin/Potassium Clav 500 MG TAB PO SCH ×2 (08:25→20:04)
[2021-06-05] MEDS: Spironolactone 100 MG TAB PO SCH (08:25)
[2021-06-05] MEDS ORDERED: Lorazepam 2 MG/ML VIAL SLOW IVP SCH (08:45)
[2021-06-05] MEDS ORDERED: Lorazepam 2 MG/ML VIAL SLOW IVP PRN (08:53)
[2021-06-05] MEDS: Polyvinyl Alcohol 1.4%/Povidone 0.6% Opth Drops R EYE SCH (11:21)
[2021-06-05] MEDS ORDERED: Sodium Bicarbonate 2.5 MEQ/5 ML VIAL ONE (12:59)
[2021-06-05 16:57] LABS: Hemoglobin 8.3 g/dL (12.0-16.0)
[2021-06-05 17:08] LABS: INR-International Normal Ratio 1.2
[2021-06-05 22:23] LABS: Hemoglobin 7.5 g/dL (12.0-16.0)
[2021-06-06 06:18] LABS: #Basophils 0.1 thou/uL (0.0-0.2); #Eosinphils 0.3 thou/uL (0.0-0.7); #Monocytes 0.6 thou/uL (0.11-0.59); #Neutrophils 7.5 thou/uL (1.40-6.50); %Basophils 0.8 % (0.0-1.0); %Eosinophils 2.8 % (0.0-10.0); %Neutrophils 71.4 % (42.0-75.0); Hemoglobin 7.8 g/dL (12.0-16.0); Mean Corpuscular Hemoglobin 31.4 pg (27.0-31.0); Mean Platelet Volume 7.6 fL (7.4-10.4); Platelet Count 239 thou/uL (130-400); RBC Distribution Width 14.2 % (11.5-14.5); Red Blood Cell (RBC) Count 2.49 mill/uL (4.20-5.40); White Blood Cell (WBC) Count 10.4 thou/uL (4.8-10.8)
[2021-06-06 06:47] LABS: ALT (SGPT) 10 U/L (8-55); AST (SGOT) 10 U/L (5-34); Albumin 2.9 g/dL (3.4-4.8); Alkaline Phosphatase 102 U/L (40-110); Anion Gap 15 mmol/L (10-20); BUN (Urea Nitrogen) 48 mg/dL (9.8-20.1); Bilirubin, Total 0.2 mg/dL (0.2-1.2); Calc. Creatinine Clearance 11 mL/min (70-130); Calcium 7.4 mg/dL (7.8-10.44); Carbon Dioxide 21 mmol/L (23-31); Chloride 111 mmol/L (98-107); Globulin 2.8 g/dL (2.4-3.5); Glucose 146 mg/dL (80-115); Magnesium 1.8 mg/dL (1.6-2.6); Phosphorus 5.1 mg/dL (2.3-4.7); Potassium 3.7 mmol/L (3.5-5.1); Protein, Total 5.7 g/dL (5.8-8.1); Sodium 143 mmol/L (136-145)
[2021-06-06] MEDS: Sodium Bicarbonate Tab 325 MG TAB PO SCH ×3 (07:46→20:39)
[2021-06-06] MEDS: NIFEdipine XL 60 MG TAB PO SCH ×2 (07:46→20:38)
[2021-06-06] MEDS: Calcium Carbonate 600 MG TAB PO SCH (07:48)
[2021-06-06] MEDS: Carvedilol 6.25 MG TAB PO SCH ×2 (07:48→17:28)
[2021-06-06] MEDS: Ferrous Sulfate 325 MG TAB PO SCH (07:48)
[2021-06-06] MEDS: Amoxicillin/Potassium Clav 500 MG TAB PO SCH ×2 (07:49→20:38)
[2021-06-06] MEDS: Spironolactone 100 MG TAB PO SCH (07:49)
[2021-06-06] MEDS: Folic Acid/Vit B Comp W-C PO SCH (07:49)
[2021-06-06] MEDS: Polyvinyl Alcohol 1.4%/Povidone 0.6% Opth Drops R EYE SCH (07:50)
[2021-06-06] MEDS: Simethicone Chewable 80 MG TAB PO PRN (10:40)
[2021-06-06] MEDS: HumaLOG 300 UNITS/3 ML VIAL SC PRN (17:28)
[2021-06-07 07:08] LABS: Hemoglobin 8.1 g/dL (12.0-16.0); Mean Corpuscular HGB CONC 33.6 g/dL (32.0-36.0); Mean Corpuscular Hemoglobin 31.8 pg (27.0-31.0); Mean Corpuscular Volume 94.6 fL (78.0-98.0); Mean Platelet Volume 7.8 fL (7.4-10.4); Platelet Count 230 thou/uL (130-400); RBC Distribution Width 14.4 % (11.5-14.5); Red Blood Cell (RBC) Count 2.55 mill/uL (4.20-5.40); White Blood Cell (WBC) Count 10.8 thou/uL (4.8-10.8)
[2021-06-07 07:29] LABS: Albumin 3.3 g/dL (3.4-4.8); Anion Gap 15 mmol/L (10-20); BUN (Urea Nitrogen) 51 mg/dL (9.8-20.1); BUN/Creatinine Ratio 8.79; Calc. Creatinine Clearance 10 mL/min (70-130); Calcium 7.7 mg/dL (7.8-10.44); Carbon Dioxide 22 mmol/L (23-31); Chloride 108 mmol/L (98-107); Glucose 173 mg/dL (80-115); Phosphorus 4.9 mg/dL (2.3-4.7); Potassium 3.7 mmol/L (3.5-5.1); Sodium 141 mmol/L (136-145)
[2021-06-07] MEDS: Carvedilol 6.25 MG TAB PO SCH ×2 (08:54→16:04)
[2021-06-07] MEDS: Folic Acid/Vit B Comp W-C PO SCH (08:55)
[2021-06-07] MEDS: Calcium Carbonate 600 MG TAB PO SCH (08:55)
[2021-06-07] MEDS: Sodium Bicarbonate Tab 325 MG TAB PO SCH ×3 (08:55→20:56)
[2021-06-07] MEDS: NIFEdipine XL 60 MG TAB PO SCH ×2 (08:56→20:57)
[2021-06-07] MEDS: Ferrous Sulfate 325 MG TAB PO SCH (08:56)
[2021-06-07] MEDS ORDERED: Torsemide 20 MG TAB PO SCH (09:00)
[2021-06-07] MEDS: Amoxicillin/Potassium Clav 500 MG TAB PO SCH ×2 (09:25→20:56)
[2021-06-07] MEDS: Spironolactone 100 MG TAB PO SCH (09:25)
[2021-06-07] MEDS: HumaLOG 300 UNITS/3 ML VIAL SC PRN ×2 (09:34→16:10)
[2021-06-07] MEDS: Polyvinyl Alcohol 1.4%/Povidone 0.6% Opth Drops R EYE SCH (10:57)
[2021-06-07 12:12] LABS: Lactic Acid 0.8 mmol/L (0.5-2.2)
[2021-06-07] MEDS: Simethicone Chewable 80 MG TAB PO PRN (16:28)
[2021-06-07] MEDS: Torsemide 20 MG TAB PO SCH (20:56)
[2021-06-08 05:55] LABS: Hemoglobin 7.8 g/dL (12.0-16.0); Mean Corpuscular HGB CONC 33.1 g/dL (32.0-36.0); Mean Corpuscular Hemoglobin 31.3 pg (27.0-31.0); Mean Corpuscular Volume 94.5 fL (78.0-98.0); Mean Platelet Volume 8.1 fL (7.4-10.4); Platelet Count 207 thou/uL (130-400); RBC Distribution Width 14.4 % (11.5-14.5); Red Blood Cell (RBC) Count 2.48 mill/uL (4.20-5.40); White Blood Cell (WBC) Count 10.2 thou/uL (4.8-10.8)
[2021-06-08] MEDS: HumaLOG 300 UNITS/3 ML VIAL SC PRN ×2 (06:09→16:43)
[2021-06-08 06:12] LABS: Albumin 3.1 g/dL (3.4-4.8); Anion Gap 14 mmol/L (10-20); BUN (Urea Nitrogen) 52 mg/dL (9.8-20.1); BUN/Creatinine Ratio 8.83; Calc. Creatinine Clearance 10 mL/min (70-130); Calcium 7.5 mg/dL (7.8-10.44); Carbon Dioxide 21 mmol/L (23-31); Chloride 108 mmol/L (98-107); Glucose 238 mg/dL (80-115); Phosphorus 4.8 mg/dL (2.3-4.7); Potassium 3.7 mmol/L (3.5-5.1); Sodium 139 mmol/L (136-145)
[2021-06-08] MEDS ORDERED: Lidocaine 2% Viscous Solution 10 ML, Aluminum & Magnesium Hydroxide 30 ML SSW PRN (07:30)
[2021-06-08] MEDS: Ferrous Sulfate 325 MG TAB PO SCH (08:35)
[2021-06-08] MEDS: Sodium Bicarbonate Tab 325 MG TAB PO SCH ×3 (08:35→20:41)
[2021-06-08] MEDS: NIFEdipine XL 60 MG TAB PO SCH ×2 (08:35→20:41)
[2021-06-08] MEDS: Carvedilol 6.25 MG TAB PO SCH ×2 (08:35→16:42)
[2021-06-08] MEDS: Calcium Carbonate 600 MG TAB PO SCH (08:35)
[2021-06-08] MEDS: Folic Acid/Vit B Comp W-C PO SCH (08:35)
[2021-06-08] MEDS: Amoxicillin/Potassium Clav 500 MG TAB PO SCH (08:35)
[2021-06-08] MEDS: Spironolactone 100 MG TAB PO SCH (08:35)
[2021-06-08] MEDS: Torsemide 20 MG TAB PO SCH ×2 (08:36→20:41)
[2021-06-08] MEDS: Polyvinyl Alcohol 1.4%/Povidone 0.6% Opth Drops R EYE SCH (08:36)
[2021-06-08] MEDS: EPOETIN ALFA-EPBX (ESRD) 3,000 UNIT/ML VIAL SC SCH (09:41)
[2021-06-08] MEDS: EPOETIN ALFA-EPBX (ESRD) 2,000 UNIT/ML VIAL SC SCH (09:42)
[2021-06-08 14:46] VITALS: BMI 31.9
[2021-06-09] MEDS: Simethicone Chewable 80 MG TAB PO PRN ×2 (00:27→20:17)
[2021-06-09] MEDS: Zolpidem Tartrate 5 MG TAB PO PRN ×2 (01:56→20:12)
[2021-06-09 06:25] LABS: Hemoglobin 7.3 g/dL (12.0-16.0); Mean Corpuscular HGB CONC 32.8 g/dL (32.0-36.0); Mean Corpuscular Hemoglobin 31.3 pg (27.0-31.0); Mean Corpuscular Volume 95.3 fL (78.0-98.0); Mean Platelet Volume 8.4 fL (7.4-10.4); Platelet Count 201 thou/uL (130-400); RBC Distribution Width 14.4 % (11.5-14.5); Red Blood Cell (RBC) Count 2.35 mill/uL (4.20-5.40)
[2021-06-09 06:41] LABS: Albumin 2.9 g/dL (3.4-4.8); Anion Gap 13 mmol/L (10-20); BUN (Urea Nitrogen) 58 mg/dL (9.8-20.1); BUN/Creatinine Ratio 9.48; Calc. Creatinine Clearance 10 mL/min (70-130); Calcium 7.1 mg/dL (7.8-10.44); Carbon Dioxide 22 mmol/L (23-31); Chloride 107 mmol/L (98-107); Glucose 182 mg/dL (80-115); Phosphorus 5.1 mg/dL (2.3-4.7); Potassium 3.9 mmol/L (3.5-5.1); Sodium 138 mmol/L (136-145)
[2021-06-09] MEDS: Ferrous Sulfate 325 MG TAB PO SCH (08:13)
[2021-06-09] MEDS: Sodium Bicarbonate Tab 325 MG TAB PO SCH ×3 (08:13→20:16)
[2021-06-09] MEDS: Spironolactone 100 MG TAB PO SCH (08:13)
[2021-06-09] MEDS: Folic Acid/Vit B Comp W-C PO SCH (08:13)
[2021-06-09] MEDS: Calcium Carbonate 600 MG TAB PO SCH (08:13)
[2021-06-09] MEDS: Torsemide 20 MG TAB PO SCH ×2 (08:13→20:17)
[2021-06-09] MEDS: NIFEdipine XL 60 MG TAB PO SCH ×2 (08:14→20:16)
[2021-06-09] MEDS: Carvedilol 6.25 MG TAB PO SCH ×2 (08:14→17:35)
[2021-06-09] MEDS: Polyvinyl Alcohol 1.4%/Povidone 0.6% Opth Drops R EYE SCH (08:15)
[2021-06-09] MEDS ORDERED: CEFAZOLIN 2 GM in Premix Bag 1 BAG IVPB SCH (09:45)
[2021-06-09 11:29] LABS: HBSAB Concentration Less than 8.00 mIU/mL; HBSAg Index 0.21 S/CO (0-0.99); Hep B Core Total Ab Non-Reactive (NonReactive); Hep B Core Total Index 0.06 S/CO (0-0.79); Hep B Surf AB Non-Reactive (NonReactive); Hep B Surf Ag Non-Reactive S/CO (NonReactive); Hep C IgG Ab Non-Reactive (NonReactive); Hep C Index 0.11 S/CO (0-0.79)
[2021-06-09] MEDS: HumaLOG 300 UNITS/3 ML VIAL SC PRN ×3 (13:57→21:52)
[2021-06-10 06:44] LABS: Hemoglobin 8.1 g/dL (12.0-16.0); Mean Corpuscular HGB CONC 33.6 g/dL (32.0-36.0); Mean Corpuscular Hemoglobin 31.9 pg (27.0-31.0); Mean Platelet Volume 8.2 fL (7.4-10.4); Platelet Count 225 thou/uL (130-400); RBC Distribution Width 14.5 % (11.5-14.5); Red Blood Cell (RBC) Count 2.55 mill/uL (4.20-5.40); White Blood Cell (WBC) Count 11.8 thou/uL (4.8-10.8)
[2021-06-10 07:05] LABS: Albumin 3.2 g/dL (3.4-4.8); Anion Gap 17 mmol/L (10-20); BUN (Urea Nitrogen) 59 mg/dL (9.8-20.1); BUN/Creatinine Ratio 9.88; Calc. Creatinine Clearance 11 mL/min (70-130); Calcium 7.4 mg/dL (7.8-10.44); Carbon Dioxide 21 mmol/L (23-31); Chloride 109 mmol/L (98-107); Glucose 134 mg/dL (80-115); Phosphorus 4.8 mg/dL (2.3-4.7); Potassium 3.8 mmol/L (3.5-5.1); Sodium 143 mmol/L (136-145)
[2021-06-10] MEDS: Folic Acid/Vit B Comp W-C PO SCH (08:40)
[2021-06-10] MEDS: Sodium Bicarbonate Tab 325 MG TAB PO SCH ×3 (08:40→20:46)
[2021-06-10] MEDS: Calcium Carbonate 600 MG TAB PO SCH (08:41)
[2021-06-10] MEDS: Ferrous Sulfate 325 MG TAB PO SCH (08:41)
[2021-06-10] MEDS: Carvedilol 6.25 MG TAB PO SCH ×2 (08:41→18:21)
[2021-06-10] MEDS: NIFEdipine XL 60 MG TAB PO SCH ×2 (08:41→20:46)
[2021-06-10] MEDS: Spironolactone 100 MG TAB PO SCH (08:41)
[2021-06-10] MEDS: Ergocalciferol 1.25 MG(50,000 UNITS) CAP PO SCH (08:42)
[2021-06-10] MEDS: Torsemide 20 MG TAB PO SCH ×2 (08:52→20:47)
[2021-06-10] MEDS: Polyvinyl Alcohol 1.4%/Povidone 0.6% Opth Drops R EYE SCH (15:24)
[2021-06-10] MEDS: EPOETIN ALFA-EPBX (ESRD) 2,000 UNIT/ML VIAL SC SCH (15:26)
[2021-06-10] MEDS: EPOETIN ALFA-EPBX (ESRD) 3,000 UNIT/ML VIAL SC SCH (15:27)
[2021-06-10 16:05] LABS: SARS-CoV-2 NAA Rapid Test Not Detected (NotDetected)
[2021-06-10] MEDS ORDERED: ceFAZolin 2 GM/DEX 5% 100 ML BAG ONE (16:54)
[2021-06-10] MEDS ORDERED: XYLOCAINE 2%-EPI 1:100,000 20 ML VIAL ONE (17:37)
[2021-06-10] MEDS ORDERED: Bupivacaine PF 0.5% 30 ML VIAL ONE (17:37)
[2021-06-10] MEDS ORDERED: Heparin 10,000 UNITS/ 10 ML VIAL ONE (17:37)
[2021-06-10] MEDS ORDERED: Sodium Chloride 0.9% 30 ML ONE (17:37)
[2021-06-10] MEDS ORDERED: Ketamine 50 MG/ML (10ML VIAL) ONE ×2 (18:02→18:06)
[2021-06-10] MEDS ORDERED: Midazolam HCl 2 mg/2 ml Vial ONE ×2 (18:02→18:06)
[2021-06-11] MEDS: HYDROcodone/Acetaminophen 5/325 mg Tablet PO PRN (06:21)
[2021-06-11] MEDS: hydrALAZINE 20 MG/ML VIAL SLOW IVP PRN (06:23)
[2021-06-11] MEDS: Sodium Bicarbonate Tab 325 MG TAB PO SCH (08:48)
[2021-06-11] MEDS: Spironolactone 100 MG TAB PO SCH (08:48)
[2021-06-11] MEDS: NIFEdipine XL 60 MG TAB PO SCH (08:49)
[2021-06-11] MEDS: Ferrous Sulfate 325 MG TAB PO SCH (08:50)
[2021-06-11] MEDS: Folic Acid/Vit B Comp W-C PO SCH (08:50)
[2021-06-11] MEDS: Torsemide 20 MG TAB PO SCH (08:50)
[2021-06-11] MEDS: Carvedilol 6.25 MG TAB PO SCH ×2 (08:50→17:08)
[2021-06-11] MEDS: Calcium Carbonate 600 MG TAB PO SCH (08:50)
[2021-06-11] MEDS: Polyvinyl Alcohol 1.4%/Povidone 0.6% Opth Drops R EYE SCH (08:51)
[2021-06-11] MEDS: Simethicone Chewable 80 MG TAB PO PRN (10:33)
[2021-06-11 11:00] LABS: Hemoglobin 8.1 g/dL (12.0-16.0); Mean Corpuscular HGB CONC 33.3 g/dL (32.0-36.0); Mean Corpuscular Hemoglobin 31.6 pg (27.0-31.0); Mean Corpuscular Volume 95.1 fL (78.0-98.0); Mean Platelet Volume 8.1 fL (7.4-10.4); Platelet Count 230 thou/uL (130-400); RBC Distribution Width 14.3 % (11.5-14.5); Red Blood Cell (RBC) Count 2.55 mill/uL (4.20-5.40); White Blood Cell (WBC) Count 12.2 thou/uL (4.8-10.8)
[2021-06-11 11:06] LABS: Albumin 3.1 g/dL (3.4-4.8); Anion Gap 15 mmol/L (10-20); BUN (Urea Nitrogen) 54 mg/dL (9.8-20.1); BUN/Creatinine Ratio 10.27; Calc. Creatinine Clearance 12 mL/min (70-130); Calcium 7.7 mg/dL (7.8-10.44); Carbon Dioxide 22 mmol/L (23-31); Chloride 110 mmol/L (98-107); Glucose 182 mg/dL (80-115); Phosphorus 4.4 mg/dL (2.3-4.7); Potassium 3.8 mmol/L (3.5-5.1); Sodium 143 mmol/L (136-145)
[2021-06-11] MEDS: HumaLOG 300 UNITS/3 ML VIAL SC PRN ×2 (11:58→17:07)
[2021-06-11 21:04] VITALS: BP 150/68; TEMP 98.7
== END 2021-06-11 21:00 | disposition home health service (06) | DRG 673 ==
LOC: ERS 12:48 → 2NO 14:44 → CCU 05-26 14:00 → T4-B 05-28 10:32
PROVIDERS: ADMIT Internal Medicine; ATTEND Internal Medicine
PROC: 5A1935Z Respiratory Ventilation, Less than 24 Consecutive Hours (ICD-10-PCS; principal; 2021-05-26)
PROC: 30233N1 Transfusion of Nonautologous Red Blood Cells into Peripheral Vein, Percutaneous Approach (ICD-10-PCS; 2021-05-26)
PROC: 05HY33Z Insertion of Infusion Device into Upper Vein, Percutaneous Approach (ICD-10-PCS; 2021-05-26)
PROC: 0BH18EZ Insertion of Endotracheal Airway into Trachea, Via Natural or Artificial Opening Endoscopic (ICD-10-PCS; 2021-05-26)
PROC: 3E033XZ Introduction of Vasopressor into Peripheral Vein, Percutaneous Approach (ICD-10-PCS; 2021-05-26)
PROC: 8E0ZXY6 Isolation (ICD-10-PCS; 2021-05-28)
PROC: 0TB13ZX Excision of Left Kidney, Percutaneous Approach, Diagnostic (ICD-10-PCS; 2021-06-08)
PROC: 0JH60XZ Insertion of Tunneled Vascular Access Device into Chest Subcutaneous Tissue and Fascia, Open Approach (ICD-10-PCS; 2021-06-10)
PROC: 02HV33Z Insertion of Infusion Device into Superior Vena Cava, Percutaneous Approach (ICD-10-PCS; 2021-06-10)
PROC: B5181ZA Fluoroscopy of Superior Vena Cava using Low Osmolar Contrast, Guidance (ICD-10-PCS; 2021-06-10)
PROC: 02H633Z Insertion of Infusion Device into Right Atrium, Percutaneous Approach (ICD-10-PCS; 2021-06-10)
PROC: B548ZZA Ultrasonography of Superior Vena Cava, Guidance (ICD-10-PCS; 2021-06-10)
DX: N17.0 Acute kidney failure with tubular necrosis (principal); Z20.822 Contact with and (suspected) exposure to COVID-19; I50.33 Acute on chronic diastolic (congestive) heart failure; J96.01 Acute respiratory failure with hypoxia; J18.9 Pneumonia, unspecified organism; R57.8 Other shock; E87.2 Acidosis; E87.1 Hypo-osmolality and hyponatremia; N99.820 Postprocedural hemorrhage of a genitourinary system organ or structure following a genitourinary system procedure; I13.2 Hypertensive heart and chronic kidney disease with heart failure and with stage 5 chronic kidney disease, or end stage renal disease; N18.6 End stage renal disease; N25.81 Secondary hyperparathyroidism of renal origin; E11.65 Type 2 diabetes mellitus with hyperglycemia; E87.6 Hypokalemia; D63.1 Anemia in chronic kidney disease; K21.9 Gastro-esophageal reflux disease without esophagitis; E11.22 Type 2 diabetes mellitus with diabetic chronic kidney disease; E11.649 Type 2 diabetes mellitus with hypoglycemia without coma; I16.0 Hypertensive urgency; F41.9 Anxiety disorder, unspecified; W18.30XA Fall on same level, unspecified, initial encounter; S00.93XA Contusion of unspecified part of head, initial encounter; E11.40 Type 2 diabetes mellitus with diabetic neuropathy, unspecified; E86.9 Volume depletion, unspecified; E88.09 Other disorders of plasma-protein metabolism, not elsewhere classified; E55.9 Vitamin D deficiency, unspecified; E66.9 Obesity, unspecified; I95.2 Hypotension due to drugs; T46.5X5A Adverse effect of other antihypertensive drugs, initial encounter; T46.1X5A Adverse effect of calcium-channel blockers, initial encounter; H11.31 Conjunctival hemorrhage, right eye; Y84.8 Other medical procedures as the cause of abnormal reaction of the patient, or of later complication, without mention of misadventure at the time of the procedure; Z28.21 Immunization not carried out because of patient refusal; Z99.2 Dependence on renal dialysis; Z90.49 Acquired absence of other specified parts of digestive tract; Z79.899 Other long term (current) drug therapy; Z79.84 Long term (current) use of oral hypoglycemic drugs; Z90.710 Acquired absence of both cervix and uterus; Z91.19 Patient's noncompliance with other medical treatment and regimen; Z68.32 Body mass index [BMI] 32.0-32.9, adult
CPT/HCPCS: 36415; 36416; 36430; 36600; 50200; 70450; 71045; 72125; 74018; 74019; 76380; 76770; 77012; 80048; 80053; 80061; 80069; 81001; 82040; 82306; 82550; 82570; 82728; 82805; 83540; 83550; 83605; 83690; 83735; 83880; 83883; 83970; 84100; 84145; 84156; 84166; 84300; 84484; 85025; 85027; 85610; 85730; 86160; 86704; 86706; 86803; 86850; 86900; 86901; 87040; 87340; 87449; 87899; 88329; 93005; 93010; 93306; 93970; 94002; 94003; A4217; C1751; C1752; J0171; J0360; J0610; J1644; J1815; J1940; J2060; J2250; J2405; J2543; J3010; J3475; J3490; J7050; J7070; P9016; P9047; Q5105; S0020; U0002; U0003; U0005

== ENCOUNTER 2021-06-16 09:47 | Day surgery (SDC) | payer MEDICARE ==
[2021-06-15 16:09] VITALS: BMI 32.4
[2021-06-16] MEDS ORDERED: ceFAZolin 2 GM/DEX 5% 100 ML BAG ONE (10:11)
[2021-06-16] MEDS ORDERED: Acetaminophen 500 MG TAB ONE (10:11)
[2021-06-16 10:40] LABS: #Basophils 0.1 thou/uL (0.0-0.2); #Eosinphils 0.3 thou/uL (0.0-0.7); #Lymphocytes 1.7 thou/uL (1.20-3.40); #Monocytes 0.7 thou/uL (0.11-0.59); #Neutrophils 5.5 thou/uL (1.40-6.50); %Basophils 1.2 % (0.0-1.0); %Eosinophils 4.2 % (0.0-10.0); %Lymphocytes 20.1 % (21.0-51.0); %Monocytes 8.8 % (0.0-10.0); %Neutrophils 65.8 % (42.0-75.0); Hemoglobin 8.1 g/dL (12.0-16.0); Mean Corpuscular HGB CONC 32.9 g/dL (32.0-36.0); Mean Corpuscular Hemoglobin 31.6 pg (27.0-31.0); Mean Platelet Volume 7.4 fL (7.4-10.4); Platelet Count 267 thou/uL (130-400); RBC Distribution Width 14.1 % (11.5-14.5); Red Blood Cell (RBC) Count 2.57 mill/uL (4.20-5.40); White Blood Cell (WBC) Count 8.3 thou/uL (4.8-10.8)
[2021-06-16 11:04] LABS: Anion Gap 12 mmol/L (10-20); BUN (Urea Nitrogen) 26 mg/dL (9.8-20.1); Calc. Creatinine Clearance 22 mL/min (70-130); Calcium 8.4 mg/dL (7.8-10.44); Carbon Dioxide 28 mmol/L (23-31); Chloride 104 mmol/L (98-107); Glucose 141 mg/dL (80-115); Magnesium 1.9 mg/dL (1.6-2.6); Potassium 3.2 mmol/L (3.5-5.1); Sodium 141 mmol/L (136-145)
[2021-06-16] MEDS ORDERED: Fentanyl 100 MCG/2 ML VIAL ONE (11:40)
[2021-06-16] MEDS ORDERED: Lidocaine 2% PF 5 ML VIAL ONE ×2 (11:43→11:47)
[2021-06-16] MEDS ORDERED: Heparin 5,000 UNITS/ML VIAL ONE (11:43)
[2021-06-16] MEDS ORDERED: Bupivacaine PF 0.5% 30 ML VIAL ONE (11:43)
[2021-06-16] MEDS ORDERED: Protamine Sulfate 50 MG/5 ML VIAL ONE (11:46)
[2021-06-16] MEDS ORDERED: XYLOCAINE 2%-EPI 1:100,000 20 ML VIAL ONE (11:50)
[2021-06-16] MEDS ORDERED: Heparin 1,000 UNITS/ML VIAL ONE (17:20)
== END 2021-06-16 17:50 | disposition home or self-care (01) ==
LOC: SDC 09:47
PROVIDERS: ATTEND Specialist
PROC: 031C0ZF Bypass Left Radial Artery to Lower Arm Vein, Open Approach (ICD-10-PCS; principal; 2021-06-16)
DX: I12.0 Hypertensive chronic kidney disease with stage 5 chronic kidney disease or end stage renal disease (principal); E11.22 Type 2 diabetes mellitus with diabetic chronic kidney disease; N18.6 End stage renal disease; I08.8 Other rheumatic multiple valve diseases; E66.9 Obesity, unspecified; Z68.32 Body mass index [BMI] 32.0-32.9, adult; Z79.84 Long term (current) use of oral hypoglycemic drugs; Z79.899 Other long term (current) drug therapy
CPT/HCPCS: 80048; 83735; 85025; C1776; J1644; J2001; J2720; J3010; S0020

== ENCOUNTER 2021-09-30 08:59 | Observation (INO) | payer MEDICARE ==
[2021-09-30 09:30] LABS: #Eosinphils 0.4 thou/uL (0.0-0.7); #Lymphocytes 1.4 thou/uL (1.20-3.40); #Monocytes 0.5 thou/uL (0.11-0.59); #Neutrophils 8.3 thou/uL (1.40-6.50); %Basophils 0.4 % (0.0-1.0); %Lymphocytes 12.8 % (21.0-51.0); %Monocytes 4.9 % (0.0-10.0); %Neutrophils 77.8 % (42.0-75.0); Hemoglobin 9.4 g/dL (12.0-16.0); Mean Corpuscular HGB CONC 34.5 g/dL (32.0-36.0); Mean Corpuscular Volume 95.6 fL (78.0-98.0); Platelet Count 177 thou/uL (130-400); RBC Distribution Width 13.5 % (11.5-14.5); Red Blood Cell (RBC) Count 2.86 mill/uL (4.20-5.40); White Blood Cell (WBC) Count 10.6 thou/uL (4.8-10.8)
[2021-09-30 09:56] LABS: ALT (SGPT) 17 U/L (8-55); AST (SGOT) 13 U/L (5-34); Albumin 3.2 g/dL (3.4-4.8); Alkaline Phosphatase 140 U/L (40-110); Anion Gap 18 mmol/L (10-20); BUN (Urea Nitrogen) 57 mg/dL (9.8-20.1); Bilirubin, Total 0.4 mg/dL (0.2-1.2); Calc. Creatinine Clearance 0 mL/min (70-130); Calcium 7.8 mg/dL (7.8-10.44); Carbon Dioxide 22 mmol/L (23-31); Chloride 99 mmol/L (98-107); Glucose 272 mg/dL (80-115); Potassium 4.2 mmol/L (3.5-5.1); Protein, Total 7.2 g/dL (5.8-8.1); Sodium 135 mmol/L (136-145)
[2021-09-30] MEDS ORDERED: Prochlorperazine 10 MG/2 ML VIAL ONE (10:34)
[2021-09-30] MEDS ORDERED: diphenhydrAMINE 50 MG/ML VIAL ONE ×2 (10:34→11:38)
[2021-09-30] MEDS ORDERED: Acetaminophen 500 MG TAB ONE (10:34)
[2021-09-30 12:15] VITALS: BMI 24.9
[2021-09-30 12:50] LABS: HBSAB Concentration 172.49 mIU/mL; HBSAg Index 0.28 S/CO (0-0.99); Hep B Surf AB Reactive (NonReactive); Hep B Surf Ag Non-Reactive S/CO (NonReactive)
[2021-09-30] MEDS ORDERED: Bisacodyl 5 MG TAB PO PRN (13:42)
[2021-09-30] MEDS ORDERED: Acetaminophen 325 MG TAB PO PRN (13:42)
[2021-09-30] MEDS ORDERED: Ondansetron PF 4 MG/2 ML Vial IVP PRN (13:42)
[2021-09-30] MEDS ORDERED: HYDROcodone/Acetaminophen 5/325 mg Tablet PO PRN (13:42)
[2021-09-30] MEDS ORDERED: Morphine 2 MG/ML VIAL SLOW IVP PRN (13:46)
[2021-09-30] MEDS ORDERED: Morphine 4 MG/ML VIAL SLOW IVP PRN (14:15)
[2021-09-30] MEDS ORDERED: Carvedilol 6.25 MG TAB PO SCH (17:00)
[2021-09-30] MEDS ORDERED: ALPRAZolam 0.25 MG TAB PO PRN (17:46)
[2021-09-30] MEDS ORDERED: NIFEdipine XL 60 MG TAB PO SCH (21:00)
[2021-09-30] MEDS: Cephalexin 250 MG CAP PO SCH (22:33)
[2021-10-01 04:35] LABS: #Eosinphils 0.4 thou/uL (0.0-0.7); #Lymphocytes 1.8 thou/uL (1.20-3.40); #Monocytes 0.3 thou/uL (0.11-0.59); #Neutrophils 4.3 thou/uL (1.40-6.50); %Basophils 0.6 % (0.0-1.0); %Eosinophils 6.1 % (0.0-10.0); %Monocytes 4.7 % (0.0-10.0); %Neutrophils 62.5 % (42.0-75.0); Hemoglobin 8.1 g/dL (12.0-16.0); Mean Corpuscular HGB CONC 33.6 g/dL (32.0-36.0); Mean Corpuscular Hemoglobin 32.1 pg (27.0-31.0); Mean Corpuscular Volume 95.4 fL (78.0-98.0); Mean Platelet Volume 7.5 fL (7.4-10.4); Platelet Count 154 thou/uL (130-400); RBC Distribution Width 13.4 % (11.5-14.5); Red Blood Cell (RBC) Count 2.52 mill/uL (4.20-5.40); White Blood Cell (WBC) Count 6.9 thou/uL (4.8-10.8)
[2021-10-01 04:52] LABS: Anion Gap 12 mmol/L (10-20); BUN (Urea Nitrogen) 22 mg/dL (9.8-20.1); Calc. Creatinine Clearance 19 mL/min (70-130); Calcium 7.5 mg/dL (7.8-10.44); Carbon Dioxide 28 mmol/L (23-31); Chloride 98 mmol/L (98-107); Glucose 147 mg/dL (80-115); Potassium 3.4 mmol/L (3.5-5.1); Sodium 135 mmol/L (136-145)
[2021-10-01] MEDS ORDERED: Ferrous Sulfate 325 MG TAB PO SCH (08:00)
[2021-10-01] MEDS ORDERED: Fioricet 325/50/40 mg Tablet PO PRN (08:53)
[2021-10-01] MEDS: Cephalexin 250 MG CAP PO SCH (08:57)
[2021-10-01] MEDS ORDERED: FLUoxetine HCl 20 MG CAP PO SCH (09:00)
[2021-10-01] MEDS ORDERED: Folic Acid/Vit B Comp W-C PO SCH (09:00)
[2021-10-01] MEDS ORDERED: Carvedilol 25 MG TAB PO SCH (09:00)
[2021-10-01] MEDS ORDERED: NIFEdipine XL 60 MG TAB PO SCH (09:00)
[2021-10-01] MEDS ORDERED: Epoetin (ESRD) 10,000 UNITS/ML VIAL SC SCH (09:00)
[2021-10-01] MEDS ORDERED: Potassium Chloride 20 MEQ TAB PO SCH (09:45)
[2021-10-01 12:05] VITALS: BP 140/61; TEMP 97.7
[2021-10-07] MEDS ORDERED: Ergocalciferol 1.25 MG(50,000 UNITS) CAP PO SCH (09:00)
== END 2021-10-01 14:25 | disposition home or self-care (01) ==
LOC: ERS 08:59 → NEURO 10:46
PROVIDERS: ADMIT Family Medicine; ATTEND Hospitalist
DX: G43.909 Migraine, unspecified, not intractable, without status migrainosus (principal); R53.1 Weakness; L03.115 Cellulitis of right lower limb; E87.1 Hypo-osmolality and hyponatremia; I13.2 Hypertensive heart and chronic kidney disease with heart failure and with stage 5 chronic kidney disease, or end stage renal disease; E11.22 Type 2 diabetes mellitus with diabetic chronic kidney disease; N18.6 End stage renal disease; I50.33 Acute on chronic diastolic (congestive) heart failure; D63.1 Anemia in chronic kidney disease; K21.9 Gastro-esophageal reflux disease without esophagitis; E55.9 Vitamin D deficiency, unspecified; E87.6 Hypokalemia; Z79.2 Long term (current) use of antibiotics; Z79.899 Other long term (current) drug therapy; Z99.2 Dependence on renal dialysis
CPT/HCPCS: 36415; 71045; 80053; 83605; 85025; 86706; 87340; 93005; 94760; J0780; J1200

== ENCOUNTER 2021-12-10 11:18 | Outpatient (CLI) | payer MEDICARE | END 2021-12-10 11:19 | disposition home or self-care (01) | LOC: BICMAMMO 11:18 | PROVIDERS: ATTEND Family Medicine | DX: Z12.31 Encounter for screening mammogram for malignant neoplasm of breast (principal) | CPT/HCPCS: 77063; 77067 ==

== ENCOUNTER 2022-03-18 19:57 | Emergency (ER) | payer MEDICARE | END 2022-03-18 21:28 | disposition home or self-care (01) | LOC: ERS 19:57 | DX: T25.212A Burn of second degree of left ankle, initial encounter (principal); I10 Essential (primary) hypertension; X10.0XXA Contact with hot drinks, initial encounter | CPT/HCPCS: 99283 ==

== ENCOUNTER 2023-04-10 10:05 | Inpatient (IN) | payer MEDICARE, OTHER ==
[2023-04-10] MEDS ORDERED: HYDROcodone/Acetaminophen 5/325 mg Tablet ONE (11:31)
[2023-04-10 11:42] LABS: #Basophils 0.1 thou/uL (0.0-0.2); #Eosinphils 0.3 thou/uL (0.0-0.7); #Monocytes 0.8 thou/uL (0.11-0.59); #Neutrophils 7.2 thou/uL (1.40-6.50); %Basophils 0.8 % (0.0-1.0); %Eosinophils 2.6 % (0.0-10.0); %Lymphocytes 16.8 % (21.0-51.0); %Monocytes 7.8 % (0.0-10.0); %Neutrophils 71.6 % (42.0-75.0); Hematocrit 35.4 % (36.0-47.0); Hemoglobin 11.9 g/dL (12.0-16.0); Mean Corpuscular HGB CONC 33.6 g/dL (32.0-36.0); Mean Corpuscular Hemoglobin 33.3 pg (27.0-31.0); Mean Corpuscular Volume 99.2 fl (78.0-98.0); Mean Platelet Volume 10.2 fL (7.4-10.4); Platelet Count 170 10x3/uL (130-400); RBC Distribution Width 14.6 % (11.5-14.5); Red Blood Cell (RBC) Count 3.57 mill/uL (4.20-5.40)
[2023-04-10] MEDS ORDERED: TETANUS, DIPHTHERIA TOX,ADULT (TDVAX) 0.5 ML VIAL IM ONE ×2 (12:03→13:24)
[2023-04-10] MEDS ORDERED: Ondansetron ODT 4 MG TAB PO PRN (12:03)
[2023-04-10] MEDS ORDERED: Dextrose 5% in Water 1,000 ML IV PRN (12:03)
[2023-04-10] MEDS ORDERED: Dextrose 50% Abboject 50 ML SYRINGE SLOW IVP PRN (12:03)
[2023-04-10] MEDS ORDERED: Glucagon 1 MG/ML KIT IM PRN (12:03)
[2023-04-10] MEDS ORDERED: Ipratropium/Albuterol 3 ML NEB NEB PRN (12:03)
[2023-04-10] MEDS ORDERED: hydrALAZINE 20 MG/ML VIAL SLOW IVP PRN (12:03)
[2023-04-10 12:06] LABS: ALT (SGPT) 19 U/L (8-55); AST (SGOT) 20 U/L (5-34); Albumin 3.6 g/dL (3.4-4.8); Alkaline Phosphatase 259 U/L (40-110); Anion Gap 21 mmol/L (10-20); BUN (Urea Nitrogen) 47 mg/dL (9.8-20.1); Bilirubin, Total 0.4 mg/dL (0.2-1.2); Calc. Creatinine Clearance 0 mL/min (70-130); Calcium 7.9 mg/dL (7.8-10.44); Carbon Dioxide 20 mmol/L (23-31); Chloride 98 mmol/L (98-107); Estimated GFR 10; Globulin 3.5 g/dL (2.4-3.5); Glucose 384 mg/dL (83-110); Potassium 4.1 mmol/L (3.5-5.1); Protein, Total 7.1 g/dL (5.8-8.1); Sodium 135 mmol/L (136-145)
[2023-04-10 12:10] LABS: Prothrombin Time 13.2 sec (12.0-14.7)
[2023-04-10 12:11] LABS: PTT 30.7 sec (22.9-36.1)
[2023-04-10] MEDS ORDERED: Acetaminophen 325 MG TAB PO SCH (12:30)
[2023-04-10] MEDS ORDERED: Acetaminophen 325 MG TAB ONE (13:24)
[2023-04-10] MEDS: traMADol HCl 50 MG TAB PO PRN (15:48)
[2023-04-10 16:04] VITALS: BMI 23.4
[2023-04-10 17:24] LABS: Bacteria/HPF 2+ HPF (None Seen); Bilirubin Negative (Negative); Blood, Urine 1+ (Negative); CAUTI Indications for Culture Alt mental st,lethar; Clarity Turbid (Clear); Glucose, Urine (Dipstick) Greater than 1000 mg/dL (Negative); Ketone, Urine Negative (Negative); Leukocyte 500 Leu/uL (Negative); Nitrite Negative (Negative); Protein, Urine (Dipstick) 200 mg/dL (Neg-Trace); RBC/HPF 0-3 HPF (0-3); Specific Gravity, Urine 1.012 (1.002-1.036); Urobilinogen Normal mg/dL (Less than 2); WBC/HPF Greater than 50 HPF (0-3)
[2023-04-10] MEDS: Sevelamer Carbonate 800 MG TAB PO SCH (17:24)
[2023-04-10] MEDS: Acetaminophen 325 MG TAB PO SCH ×2 (17:25→23:52)
[2023-04-10] MEDS: HumaLOG 300 UNITS/3 ML VIAL SC PRN ×2 (17:25→21:11)
[2023-04-10] MEDS: Carvedilol 6.25 MG TAB PO SCH (17:25)
[2023-04-10] MEDS: Calcium Acetate 667 MG CAP PO SCH (17:25)
[2023-04-10 17:28] LABS: Urine Culture Reflex Yes Yes
[2023-04-10] MEDS: Morphine 2 MG/ML VIAL SLOW IVP PRN ×3 (18:06→23:52)
[2023-04-10] MEDS ORDERED: NIFEdipine XL 60 MG ER.TAB PO SCH (21:00)
[2023-04-10] MEDS ORDERED: Famotidine 20 MG TAB PO SCH (21:00)
[2023-04-11] MEDS: Carvedilol 6.25 MG TAB PO SCH ×2 (04:59→17:45)
[2023-04-11] MEDS: Acetaminophen 325 MG TAB PO SCH ×2 (05:32→13:56)
[2023-04-11 06:50] LABS: #Basophils 0.1 thou/uL (0.0-0.2); #Eosinphils 0.4 thou/uL (0.0-0.7); #Monocytes 1.3 thou/uL (0.11-0.59); #Neutrophils 11.4 thou/uL (1.40-6.50); %Basophils 0.5 % (0.0-1.0); %Eosinophils 2.3 % (0.0-10.0); %Lymphocytes 13.1 % (21.0-51.0); %Monocytes 8.4 % (0.0-10.0); %Neutrophils 75.2 % (42.0-75.0); Hematocrit 34.5 % (36.0-47.0); Hemoglobin 11.4 g/dL (12.0-16.0); Mean Corpuscular Hemoglobin 32.1 pg (27.0-31.0); Mean Corpuscular Volume 97.2 fl (78.0-98.0); Mean Platelet Volume 10.7 fL (7.4-10.4); Platelet Count 185 10x3/uL (130-400); RBC Distribution Width 14.5 % (11.5-14.5); Red Blood Cell (RBC) Count 3.55 mill/uL (4.20-5.40); White Blood Cell (WBC) Count 15.1 10x3/uL (4.8-10.8)
[2023-04-11 07:17] LABS: Anion Gap 19 mmol/L (10-20); BUN (Urea Nitrogen) 59 mg/dL (9.8-20.1); Calc. Creatinine Clearance 8 mL/min (70-130); Calcium 8.2 mg/dL (7.8-10.44); Carbon Dioxide 25 mmol/L (23-31); Chloride 92 mmol/L (98-107); Estimated GFR 8; Glucose 207 mg/dL (83-110); Sodium 132 mmol/L (136-145)
[2023-04-11] MEDS ORDERED: Losartan 25 MG TAB PO SCH (09:00)
[2023-04-11] MEDS ORDERED: Amlodipine 5 MG TAB PO SCH (09:00)
[2023-04-11] MEDS: Morphine 2 MG/ML VIAL SLOW IVP PRN (09:37)
[2023-04-11] MEDS: Sevelamer Carbonate 800 MG TAB PO SCH ×3 (10:03→17:45)
[2023-04-11] MEDS: FLUoxetine HCl 10 MG CAP PO SCH (10:03)
[2023-04-11] MEDS: Calcium Acetate 667 MG CAP PO SCH ×3 (10:03→17:45)
[2023-04-11] MEDS ORDERED: CEFAZOLIN 2 GM in Sodium Chloride 0.9% 100 ML IVPB SCH (12:15)
[2023-04-11] MEDS ORDERED: fentaNYL 50 mcg/mL 1 mL Vial ONE (12:22)
[2023-04-11] MEDS ORDERED: Fentanyl 250 MCG/5 ML VIAL ONE (12:22)
[2023-04-11] MEDS ORDERED: Bupivacaine PF 0.5% 30 ML VIAL ONE (12:22)
[2023-04-11] MEDS ORDERED: Sodium Chloride 0.9% 100 ML ONE (12:23)
[2023-04-11] MEDS ORDERED: CEFAZOLIN 2 GM VIAL ONE (12:23)
[2023-04-11] MEDS ORDERED: ePHEDrine Sulfate 50 MG/10 ML VIAL ONE (12:40)
[2023-04-11] MEDS ORDERED: PROPOFOL 200 MG/20 ML VIAL ONE (12:40)
[2023-04-11] MEDS ORDERED: PHENYLEPHRINE-NS 100 MCG/ML 10 ML SYRINGE ONE (12:40)
[2023-04-11] MEDS ORDERED: Bupivacaine HCl 0.5%/Epinephrine 1:200,000/PF 30 ml Vial ONE (12:40)
[2023-04-11] MEDS ORDERED: Lidocaine 1% PF 5 ML VIAL ONE (12:40)
[2023-04-11] MEDS ORDERED: Heparin 10,000 UNITS/ 10 ML VIAL ONE (14:58)
[2023-04-11] MEDS: CEFAZOLIN 2 GM in Sodium Chloride 0.9% 100 ML IVPB SCH (20:02)
[2023-04-11] MEDS ORDERED: cefTRIAXone\\ROCEPHIN 1 GM in Sodium Chloride 0.9% 100 ML IVPB SCH (21:00)
[2023-04-11] MEDS: Senokot S 8.6-50 MG TAB PO SCH (21:12)
[2023-04-11] MEDS: NIFEdipine XL 60 MG ER.TAB PO SCH (21:12)
[2023-04-11] MEDS: Insulin Glargine 30 UNITS/0.3 ML VIAL SC SCH (22:17)
[2023-04-12] MEDS: CEFAZOLIN 2 GM in Sodium Chloride 0.9% 100 ML IVPB SCH (04:30)
[2023-04-12 07:21] LABS: #Basophils 0.1 thou/uL (0.0-0.2); #Eosinphils 0.2 thou/uL (0.0-0.7); #Neutrophils 7.9 thou/uL (1.40-6.50); %Basophils 0.5 % (0.0-1.0); %Eosinophils 2.2 % (0.0-10.0); %Monocytes 8.8 % (0.0-10.0); %Neutrophils 72.1 % (42.0-75.0); Hematocrit 31.6 % (36.0-47.0); Hemoglobin 10.5 g/dL (12.0-16.0); Mean Corpuscular HGB CONC 33.2 g/dL (32.0-36.0); Mean Corpuscular Volume 99.4 fl (78.0-98.0); Mean Platelet Volume 10.4 fL (7.4-10.4); Platelet Count 165 10x3/uL (130-400); RBC Distribution Width 14.7 % (11.5-14.5); Red Blood Cell (RBC) Count 3.18 mill/uL (4.20-5.40); White Blood Cell (WBC) Count 10.9 10x3/uL (4.8-10.8)
[2023-04-12 07:51] LABS: Anion Gap 15 mmol/L (10-20); BUN (Urea Nitrogen) 21 mg/dL (9.8-20.1); Calc. Creatinine Clearance 14 mL/min (70-130); Calcium 8.3 mg/dL (7.8-10.44); Carbon Dioxide 27 mmol/L (23-31); Chloride 99 mmol/L (98-107); Estimated GFR 15; Glucose 104 mg/dL (83-110); Potassium 4.3 mmol/L (3.5-5.1); Sodium 137 mmol/L (136-145)
[2023-04-12] MEDS: Polyethylene Glycol 3350 17 GM Packet PO SCH (08:20)
[2023-04-12] MEDS: FLUoxetine HCl 10 MG CAP PO SCH (08:21)
[2023-04-12] MEDS: Senokot S 8.6-50 MG TAB PO SCH ×2 (08:21→20:56)
[2023-04-12] MEDS: Carvedilol 6.25 MG TAB PO SCH ×2 (08:21→17:20)
[2023-04-12] MEDS: Calcium Acetate 667 MG CAP PO SCH ×3 (08:21→17:20)
[2023-04-12] MEDS: Ferrous Sulfate 325 MG TAB PO SCH (08:21)
[2023-04-12] MEDS: Sevelamer Carbonate 800 MG TAB PO SCH ×3 (08:21→17:20)
[2023-04-12] MEDS: Acetaminophen 325 MG TAB PO SCH ×4 (08:24→17:20)
[2023-04-12] MEDS: Cefdinir 300 MG CAP PO SCH ×2 (10:06→20:55)
[2023-04-12] MEDS: traMADol HCl 50 MG TAB PO PRN (10:11)
[2023-04-12] MEDS: Insulin Glargine 30 UNITS/0.3 ML VIAL SC SCH (20:56)
[2023-04-12] MEDS: Heparin 5,000 UNITS/ML VIAL SC SCH (20:57)
[2023-04-12] MEDS: NIFEdipine XL 60 MG ER.TAB PO SCH (20:57)
[2023-04-13] MEDS: Acetaminophen 325 MG TAB PO SCH ×5 (00:54→22:59)
[2023-04-13] MEDS: Carvedilol 6.25 MG TAB PO SCH ×2 (12:40→18:18)
[2023-04-13] MEDS: Calcium Acetate 667 MG CAP PO SCH ×3 (12:40→18:18)
[2023-04-13] MEDS: Sevelamer Carbonate 800 MG TAB PO SCH ×3 (12:41→17:30)
[2023-04-13] MEDS: Heparin 5,000 UNITS/ML VIAL SC SCH ×2 (12:41→20:53)
[2023-04-13] MEDS ORDERED: Heparin 10,000 UNITS/ 10 ML VIAL ONE (12:46)
[2023-04-13] MEDS: Polyethylene Glycol 3350 17 GM Packet PO SCH (13:57)
[2023-04-13] MEDS: Cefdinir 300 MG CAP PO SCH ×2 (13:58→20:51)
[2023-04-13] MEDS: Ferrous Sulfate 325 MG TAB PO SCH (13:58)
[2023-04-13] MEDS: FLUoxetine HCl 10 MG CAP PO SCH (13:59)
[2023-04-13] MEDS: Senokot S 8.6-50 MG TAB PO SCH ×2 (14:00→20:53)
[2023-04-13] MEDS: NIFEdipine XL 60 MG ER.TAB PO SCH (20:50)
[2023-04-13] MEDS: Insulin Glargine 30 UNITS/0.3 ML VIAL SC SCH (20:51)
[2023-04-14] MEDS: Acetaminophen 325 MG TAB PO SCH ×4 (05:14→23:31)
[2023-04-14] MEDS: Morphine 2 MG/ML VIAL SLOW IVP PRN (06:25)
[2023-04-14] MEDS: Calcium Acetate 667 MG CAP PO SCH ×3 (09:26→17:34)
[2023-04-14] MEDS: Sevelamer Carbonate 800 MG TAB PO SCH ×3 (09:26→17:34)
[2023-04-14] MEDS: Polyethylene Glycol 3350 17 GM Packet PO SCH (09:26)
[2023-04-14] MEDS: Ferrous Sulfate 325 MG TAB PO SCH (09:26)
[2023-04-14] MEDS: Senokot S 8.6-50 MG TAB PO SCH ×2 (09:26→21:00)
[2023-04-14] MEDS: FLUoxetine HCl 10 MG CAP PO SCH (09:26)
[2023-04-14] MEDS: Heparin 5,000 UNITS/ML VIAL SC SCH ×2 (09:26→21:01)
[2023-04-14] MEDS: Carvedilol 6.25 MG TAB PO SCH ×2 (09:26→17:34)
[2023-04-14] MEDS: traMADol HCl 50 MG TAB PO PRN ×2 (09:36→21:00)
[2023-04-14] MEDS: Cefdinir 300 MG CAP PO SCH (09:44)
[2023-04-14 10:19] LABS: #Basophils 0.1 thou/uL (0.0-0.2); #Eosinphils 0.2 thou/uL (0.0-0.7); #Monocytes 0.9 thou/uL (0.11-0.59); #Neutrophils 7.2 thou/uL (1.40-6.50); %Basophils 0.6 % (0.0-1.0); %Eosinophils 2.2 % (0.0-10.0); %Lymphocytes 17.3 % (21.0-51.0); %Monocytes 9.3 % (0.0-10.0); %Neutrophils 70.3 % (42.0-75.0); Hematocrit 30.3 % (36.0-47.0); Hemoglobin 10.1 g/dL (12.0-16.0); Mean Corpuscular HGB CONC 33.3 g/dL (32.0-36.0); Mean Corpuscular Hemoglobin 33.2 pg (27.0-31.0); Mean Corpuscular Volume 99.7 fl (78.0-98.0); Mean Platelet Volume 10.6 fL (7.4-10.4); Platelet Count 195 10x3/uL (130-400); RBC Distribution Width 14.2 % (11.5-14.5); Red Blood Cell (RBC) Count 3.04 mill/uL (4.20-5.40); White Blood Cell (WBC) Count 10.2 10x3/uL (4.8-10.8)
[2023-04-14 10:40] LABS: Albumin 3.4 g/dL (3.4-4.8); Anion Gap 16 mmol/L (10-20); BUN (Urea Nitrogen) 25 mg/dL (9.8-20.1); BUN/Creatinine Ratio 6.51; Calc. Creatinine Clearance 12 mL/min (70-130); Calcium 8.4 mg/dL (7.8-10.44); Carbon Dioxide 27 mmol/L (23-31); Chloride 93 mmol/L (98-107); Estimated GFR 12; Glucose 107 mg/dL (83-110); Potassium 4.6 mmol/L (3.5-5.1); Sodium 131 mmol/L (136-145)
[2023-04-14 10:46] LABS: Troponin I 0.013 ng/mL (< 0.028)
[2023-04-14 14:28] LABS: Troponin I 0.011 ng/mL (< 0.028)
[2023-04-14] MEDS: NIFEdipine XL 60 MG ER.TAB PO SCH (20:59)
[2023-04-14] MEDS ORDERED: Cefdinir 300 MG CAP PO SCH (21:00)
[2023-04-14] MEDS: Insulin Glargine 30 UNITS/0.3 ML VIAL SC SCH (21:00)
[2023-04-15] MEDS: Morphine 2 MG/ML VIAL SLOW IVP PRN (03:03)
[2023-04-15 04:33] VITALS: BP 91/86; TEMP 98.6
[2023-04-15] MEDS: Acetaminophen 325 MG TAB PO SCH ×2 (05:02→13:50)
[2023-04-15] MEDS: Calcium Acetate 667 MG CAP PO SCH ×2 (09:25→13:50)
[2023-04-15] MEDS: Carvedilol 6.25 MG TAB PO SCH (09:26)
[2023-04-15] MEDS: Sevelamer Carbonate 800 MG TAB PO SCH ×2 (09:27→13:50)
[2023-04-15] MEDS: Heparin 5,000 UNITS/ML VIAL SC SCH (09:27)
[2023-04-15] MEDS: Senokot S 8.6-50 MG TAB PO SCH (09:29)
[2023-04-15] MEDS: Ferrous Sulfate 325 MG TAB PO SCH (13:38)
[2023-04-15] MEDS: Polyethylene Glycol 3350 17 GM Packet PO SCH (13:39)
[2023-04-15] MEDS: FLUoxetine HCl 10 MG CAP PO SCH (13:39)
[2023-04-15] MEDS: traMADol HCl 50 MG TAB PO PRN (15:30)
[2023-04-17] MEDS ORDERED: Ergocalciferol 1.25 MG(50,000 UNITS) CAP PO SCH (09:00)
== END 2023-04-15 16:15 | DRG 492 ==
LOC: ERS 10:05 → ERHOLD 11:51 → SURG A 15:05
PROVIDERS: ADMIT Surgery; ATTEND Surgery
PROC: 0QSG04Z Reposition Right Tibia with Internal Fixation Device, Open Approach (ICD-10-PCS; principal; 2023-04-11)
DX: S82.841A Displaced bimalleolar fracture of right lower leg, initial encounter for closed fracture (principal); N18.6 End stage renal disease; N39.0 Urinary tract infection, site not specified; Z79.899 Other long term (current) drug therapy; I10 Essential (primary) hypertension; K21.9 Gastro-esophageal reflux disease without esophagitis; Z90.49 Acquired absence of other specified parts of digestive tract; Z90.710 Acquired absence of both cervix and uterus; Z98.890 Other specified postprocedural states; F41.9 Anxiety disorder, unspecified; S92.351A Displaced fracture of fifth metatarsal bone, right foot, initial encounter for closed fracture; E11.22 Type 2 diabetes mellitus with diabetic chronic kidney disease; D63.1 Anemia in chronic kidney disease; E55.9 Vitamin D deficiency, unspecified; Z79.4 Long term (current) use of insulin; W18.30XA Fall on same level, unspecified, initial encounter
CPT/HCPCS: 29515; 36415; 36416; 71045; 80048; 80053; 80069; 81001; 84484; 85025; 85610; 85730; 86850; 86900; 86901; 87077; 87086; 87186; 90714; 90935; 93005; 93010; C1713; G0257; G0390; J0696; J1644; J1815; J2272; J2704; J3010; J3490; Q0162; S0020

== ENCOUNTER 2023-06-23 12:53 | Outpatient (CLI) | payer MEDICARE ==
[2023-06-23 14:41] LABS: Hematocrit 36.3 % (34.9-44.5); Hemoglobin 11.7 g/dL (12.0-15.5); Mean Corpuscular HGB CONC 32.2 g/dL (32.0-36.0); Mean Corpuscular Hemoglobin 32.4 pg (27.0-33.0); Mean Corpuscular Volume 100.6 fl (81.6-98.3); Mean Platelet Volume 10.6 fl (7.4-10.4); Platelet Count 198 10x3/uL (150-450); Red Blood Cell (RBC) Count 3.61 10x6/uL (3.90-5.03); White Blood Cell (WBC) Count 10.8 10x3/uL (3.5-10.5)
[2023-06-23 14:51] LABS: Anion Gap 17 mmol/L (10-20); BUN (Urea Nitrogen) 39 mg/dL (9.8-20.1); Calc. Creatinine Clearance 0 mL/min (70-130); Calcium 8.3 mg/dL (7.8-10.44); Carbon Dioxide 24 mmol/L (23-31); Chloride 102 mmol/L (98-107); Estimated GFR 9; Glucose 209 mg/dL (83-110); Potassium 4.7 mmol/L (3.5-5.1); Sodium 138 mmol/L (136-145)
== END 2023-06-23 12:54 | disposition home or self-care (01) ==
LOC: LABBT 12:53
PROVIDERS: ATTEND Orthopaedic Surgery
DX: Z01.818 Encounter for other preprocedural examination (principal); S82.891A Other fracture of right lower leg, initial encounter for closed fracture
CPT/HCPCS: 80048; 85027; 86850; 86900; 86901; 93005; 93010

== ENCOUNTER 2023-06-30 12:27 | Observation (INO) | payer MEDICARE ==
[2023-06-23 14:03] VITALS: BMI 24.2
[2023-06-30] MEDS ORDERED: fentaNYL 50 mcg/mL 1 mL Vial ONE ×2 (12:43→14:11)
[2023-06-30] MEDS ORDERED: Midazolam HCl 2 mg/2 ml Vial ONE (12:43)
[2023-06-30] MEDS ORDERED: Bupivacaine PF 0.5% 30 ML VIAL ONE (12:43)
[2023-06-30] MEDS ORDERED: Bupivacaine HCl 0.5%/Epinephrine 1:200,000/PF 30 ml Vial ONE (13:40)
[2023-06-30] MEDS ORDERED: Lidocaine 1% (PF) 30 ML VIAL ONE (14:05)
[2023-06-30] MEDS ORDERED: Sodium Chloride 0.9% 100 ML ONE (14:10)
[2023-06-30] MEDS ORDERED: CEFAZOLIN 2 GM VIAL ONE (14:10)
[2023-06-30] MEDS ORDERED: PROPOFOL 20 ML ONE (14:11)
[2023-06-30] MEDS ORDERED: Ondansetron PF 4 MG/2 ML Vial ONE (14:11)
[2023-06-30] MEDS ORDERED: Vancomycin 1 GM VIAL ONE (15:54)
[2023-06-30] MEDS ORDERED: Ondansetron PF 4 MG/2 ML Vial IVP PRN (16:16)
[2023-06-30] MEDS ORDERED: fentaNYL 50 mcg/mL 1 mL Vial SLOW IVP PRN (16:16)
[2023-06-30] MEDS ORDERED: HYDROcodone/Acetaminophen 5/325 mg Tablet PO PRN (16:16)
[2023-06-30] MEDS ORDERED: traMADol HCl 50 MG TAB PO PRN (16:16)
[2023-06-30] MEDS ORDERED: Acetaminophen 325 MG TAB PO PRN (16:26)
[2023-06-30] MEDS ORDERED: Communication Order-Pharmacy FS SCH (16:30)
[2023-06-30] MEDS ORDERED: Promethazine HCl 25 MG/ML VIAL IM PRN (16:39)
[2023-06-30] MEDS ORDERED: Ondansetron HCl/PF 4 MG/2 ML Vial IVP PRN (16:39)
[2023-06-30] MEDS ORDERED: Sevelamer Carbonate 800 MG TAB PO SCH (17:00)
[2023-06-30] MEDS: Carvedilol 6.25 MG TAB PO SCH (18:44)
[2023-06-30] MEDS ORDERED: NIFEdipine XL 60 MG ER.TAB PO SCH (19:15)
[2023-06-30] MEDS: CEFAZOLIN 2 GM in Sodium Chloride 0.9% 100 ML IVPB SCH (21:00)
[2023-07-01] MEDS: Benzonatate 100 MG CAP PO PRN ×2 (00:45→09:05)
[2023-07-01] MEDS: Acetaminophen 325 MG TAB PO PRN ×2 (00:45→13:51)
[2023-07-01 05:32] LABS: #Basophils 0.1 thou/uL (0.0-0.2); #Eosinphils 0.2 thou/uL (0.0-0.7); #Monocytes 1.2 thou/uL (0.11-0.59); #Neutrophils 9.8 thou/uL (1.40-6.50); %Basophils 0.5 % (0.0-1.0); %Eosinophils 1.6 % (0.0-10.0); %Lymphocytes 13.5 % (21.0-51.0); Hematocrit 30.4 % (36.0-47.0); Hemoglobin 9.8 g/dL (12.0-16.0); Mean Corpuscular HGB CONC 32.2 g/dL (32.0-36.0); Mean Corpuscular Hemoglobin 32.6 pg (27.0-31.0); Mean Platelet Volume 9.2 fL (7.4-10.4); Platelet Count 229 10x3/uL (130-400); RBC Distribution Width 15.2 % (11.5-14.5); Red Blood Cell (RBC) Count 3.01 mill/uL (4.20-5.40); White Blood Cell (WBC) Count 13.1 10x3/uL (4.8-10.8)
[2023-07-01 06:00] LABS: Anion Gap 11 mmol/L (10-20); BUN (Urea Nitrogen) 27 mg/dL (9.8-20.1); Calc. Creatinine Clearance 9 mL/min (70-130); Calcium 7.7 mg/dL (7.8-10.44); Carbon Dioxide 27 mmol/L (23-31); Chloride 100 mmol/L (98-107); Estimated GFR 8; Glucose 133 mg/dL (83-110); Potassium 3.2 mmol/L (3.5-5.1); Sodium 135 mmol/L (136-145)
[2023-07-01] MEDS: CEFAZOLIN 2 GM in Sodium Chloride 0.9% 100 ML IVPB SCH (06:48)
[2023-07-01] MEDS ORDERED: Potassium Chloride 20 MEQ TAB PO SCH (07:00)
[2023-07-01] MEDS ORDERED: EPOETIN ALFA-EPBX (ESRD) 10,000 UNITS/ML VIAL SC SCH (08:00)
[2023-07-01 08:26] LABS: HBSAB Concentration Less than 8.00 mIU/mL; HBSAg Index 0.18 S/CO (0-0.99); Hep B Core Total Ab Non-Reactive (NonReactive); Hep B Core Total Index 0.34 S/CO (0-0.79); Hep B Surf AB Non-Reactive (NonReactive); Hep B Surf Ag Non-Reactive S/CO (NonReactive); Hep C IgG Ab Non-Reactive S/CO (NonReactive); Hep C Index 0.09 S/CO (0-0.79)
[2023-07-01] MEDS: Carvedilol 6.25 MG TAB PO SCH ×2 (08:51→16:29)
[2023-07-01] MEDS: Sevelamer Carbonate 800 MG TAB PO SCH ×3 (08:51→16:29)
[2023-07-01] MEDS ORDERED: Losartan 25 MG TAB PO SCH ×3 (09:00→21:00)
[2023-07-01] MEDS ORDERED: FLUoxetine HCl 20 MG CAP PO SCH (09:00)
[2023-07-01] MEDS ORDERED: Amlodipine 5 MG TAB PO SCH (09:00)
[2023-07-01] MEDS ORDERED: Enoxaparin 30 MG (0.3 mL) SYRINGE SC SCH (09:00)
[2023-07-01] MEDS ORDERED: NIFEdipine XL 60 MG ER.TAB PO SCH ×2 (09:00)
[2023-07-01] MEDS ORDERED: Aspirin 81 mg Enteric Coated Tablet PO SCH (09:00)
[2023-07-01] MEDS ORDERED: Ergocalciferol 1.25 MG(50,000 UNITS) CAP PO SCH (10:00)
[2023-07-01] MEDS ORDERED: Heparin 10,000 UNITS/ 10 ML VIAL ONE (10:14)
[2023-07-01] MEDS: Calcium Carbonate 500 MG ChewTAB PO SCH ×2 (15:24→16:29)
[2023-07-01 16:05] VITALS: BP 127/57; TEMP 97.7
[2023-07-06] MEDS ORDERED: Ergocalciferol 1.25 MG(50,000 UNITS) CAP PO SCH (09:00)
== END 2023-07-01 16:45 | disposition home or self-care (01) ==
LOC: SDC 12:27 → SURG B 16:16
PROVIDERS: ADMIT Orthopaedic Surgery; ATTEND Orthopaedic Surgery
PROC: 0SGF05Z Fusion of Right Ankle Joint with External Fixation Device, Open Approach (ICD-10-PCS; principal; 2023-06-30)
DX: S82.891A Other fracture of right lower leg, initial encounter for closed fracture (principal); M19.171 Post-traumatic osteoarthritis, right ankle and foot; F41.9 Anxiety disorder, unspecified; E11.22 Type 2 diabetes mellitus with diabetic chronic kidney disease; I12.0 Hypertensive chronic kidney disease with stage 5 chronic kidney disease or end stage renal disease; N18.6 End stage renal disease; G21.9 Secondary parkinsonism, unspecified; D63.1 Anemia in chronic kidney disease; E87.6 Hypokalemia; E83.51 Hypocalcemia; Z90.710 Acquired absence of both cervix and uterus; Z90.49 Acquired absence of other specified parts of digestive tract; Z98.890 Other specified postprocedural states; Z79.84 Long term (current) use of oral hypoglycemic drugs; Z79.899 Other long term (current) drug therapy; Z99.2 Dependence on renal dialysis; X58.XXXA Exposure to other specified factors, initial encounter
CPT/HCPCS: 27870; 73600; 80048; 82962; 85025; 86704; C1713; J3010; Q5105; 36415; 36416; 90935; G0257; J1644; J1650; J2001; J2250; J2405; J2704; J3370; J3490; S0020

== ENCOUNTER 2023-09-18 20:21 | Emergency (ER) | payer MEDICARE ==
[2023-09-18 21:31] LABS: #Basophils 0.08 10x3/uL (0.0-0.2); %Basophils 0.7 % (0.0-1.0); %Eosinophils 2.2 % (0.0-10.0); %Lymphocytes 12.7 % (21.0-51.0); %Monocytes 7.9 % (0.0-10.0); %Neutrophils 76.1 % (42.0-75.0); Hematocrit 30.5 % (36.0-47.0); Hemoglobin 10.4 g/dL (12.0-16.0); Mean Corpuscular HGB CONC 34.1 g/dL (32.0-36.0); Mean Corpuscular Hemoglobin 32.5 pg (27.0-31.0); Mean Corpuscular Volume 95.3 fL (78.0-98.0); Mean Platelet Volume 10.4 fL (7.4-10.4); Platelet Count 168 10x3/uL (130-400); RBC Distribution Width 13.5 % (11.5-14.5)
[2023-09-18 22:07] LABS: ALT (SGPT) 9 U/L (8-55); AST (SGOT) 10 U/L (5-34); Albumin 3.4 g/dL (3.4-4.8); Alkaline Phosphatase 138 U/L (40-110); Anion Gap 14 mmol/L (10-20); BUN (Urea Nitrogen) 56 mg/dL (9.8-20.1); Bilirubin, Total 0.5 mg/dL (0.2-1.2); Calc. Creatinine Clearance 0 mL/min (70-130); Calcium 8.1 mg/dL (7.8-10.44); Carbon Dioxide 24 mmol/L (23-31); Chloride 100 mmol/L (98-107); Estimated GFR 7; Globulin 3.6 g/dL (2.4-3.5); Glucose 171 mg/dL (83-110); Potassium 3.9 mmol/L (3.5-5.1); Sodium 134 mmol/L (136-145)
[2023-09-18 22:10] LABS: Troponin I 0.019 ng/mL (< 0.028)
[2023-09-18 22:31] LABS: Influenza A by NAA Not Detected (NotDetected); Influenza B by NAA Not Detected (NotDetected); SARS-CoV-2 NAA Rapid Test Not Detected (NotDetected)
== END 2023-09-18 23:20 | disposition home or self-care (01) ==
LOC: ERS 20:21
DX: J18.9 Pneumonia, unspecified organism (principal); I12.0 Hypertensive chronic kidney disease with stage 5 chronic kidney disease or end stage renal disease; E11.22 Type 2 diabetes mellitus with diabetic chronic kidney disease; N18.6 End stage renal disease; K21.9 Gastro-esophageal reflux disease without esophagitis; Z79.899 Other long term (current) drug therapy; Z99.2 Dependence on renal dialysis
CPT/HCPCS: 0240U; 71045; 80053; 83880; 84484; 85025; 93005

== ENCOUNTER 2023-11-13 17:07 | Inpatient (IN) | payer MEDICARE ==
[2023-11-13 17:56] LABS: Hematocrit 27.8 % (36.0-47.0); Hemoglobin 9.4 g/dL (12.0-16.0); Mean Corpuscular HGB CONC 33.8 g/dL (32.0-36.0); Mean Corpuscular Hemoglobin 32.8 pg (27.0-31.0); Mean Corpuscular Volume 96.9 fL (78.0-98.0); Mean Platelet Volume 9.8 fL (7.4-10.4); Platelet Count 281 10x3/uL (130-400); RBC Distribution Width 14.6 % (11.5-14.5); Red Blood Cell (RBC) Count 2.87 mill/uL (4.20-5.40)
[2023-11-13 18:15] LABS: ALT (SGPT) 7 U/L (8-55); AST (SGOT) 13 U/L (5-34); Albumin 2.6 g/dL (3.4-4.8); Alkaline Phosphatase 139 U/L (40-110); Anion Gap 23 mmol/L (10-20); BUN (Urea Nitrogen) 47 mg/dL (9.8-20.1); Bilirubin, Total 0.8 mg/dL (0.2-1.2); Calc. Creatinine Clearance 0 mL/min (70-130); Calcium 8.5 mg/dL (7.8-10.44); Carbon Dioxide 22 mmol/L (23-31); Chloride 94 mmol/L (98-107); Estimated GFR 7; Globulin 5.1 g/dL (2.4-3.5); Glucose 182 mg/dL (83-110); Hypochromia SLIGHT = 6-15 cells HPF (0-5); Lymphocytes 4 % (21-51); Monocytes 5 % (0-10); Neutrophil 90 % (42-75); Platelet Adequacy Comment Platelets Normal; Polychromasia SLIGHT = 2-3 cells HPF (0-2); Potassium 4.8 mmol/L (3.5-5.1); Protein, Total 7.7 g/dL (5.8-8.1); Sodium 134 mmol/L (136-145); Vacuoles SLIGHT
[2023-11-13 18:22] LABS: Troponin I 0.011 ng/mL (< 0.028)
[2023-11-13] MEDS ORDERED: Acetaminophen 500 MG TAB ONE (18:38)
[2023-11-13] MEDS ORDERED: Vancomycin 1 GM/200 ML (FROZEN) BAG ONE (18:39)
[2023-11-13] MEDS ORDERED: Morphine 4 MG/ML VIAL ONE (18:39)
[2023-11-13] MEDS ORDERED: Ondansetron PF 4 MG/2 ML Vial ONE (18:40)
[2023-11-13] MEDS ORDERED: Acetaminophen 325 MG TAB PO PRN (19:12)
[2023-11-13] MEDS ORDERED: Ondansetron PF 4 MG/2 ML Vial IVP PRN (19:12)
[2023-11-13] MEDS ORDERED: Dextrose 50% Abboject 50 ML SYRINGE SLOW IVP PRN (19:12)
[2023-11-13] MEDS ORDERED: Glucagon 1 MG/ML KIT IM PRN (19:12)
[2023-11-13] MEDS ORDERED: Dextrose 5% in Water 1,000 ML IV PRN (19:12)
[2023-11-13] MEDS ORDERED: HumaLOG 300 UNITS/3 ML VIAL SC PRN (19:12)
[2023-11-13] MEDS ORDERED: Piperacillin/Tazobactam 4.5 GM VIAL ONE (20:10)
[2023-11-13] MEDS ORDERED: Sodium Chloride 0.9% 100 ML ONE (20:11)
[2023-11-13 21:25] LABS: Lactic Acid 1.7 mmol/L (0.5-2.2)
[2023-11-13 21:35] VITALS: BMI 24.2
[2023-11-13] MEDS: Vancomycin 1 GM in Premix 1 BAG IVPB SCH (22:30)
[2023-11-13] MEDS: HYDROcodone/Acetaminophen 5/325 mg Tablet PO PRN (22:34)
[2023-11-13] MEDS: Heparin 5,000 UNITS/ML VIAL SC SCH (22:34)
[2023-11-14] MEDS: Piperacillin/Tazobactam 3.375 GM in Sodium Chloride 0.9% 100 ML IVPB SCH (01:00)
[2023-11-14 04:03] LABS: #Basophils 0.06 10x3/uL (0.0-0.2); #Eosinphils Less than 0.03 10x3/uL (0.0-0.7); %Basophils 0.3 % (0.0-1.0); %Lymphocytes 4.9 % (21.0-51.0); %Monocytes 3.7 % (0.0-10.0); %Neutrophils 90.4 % (42.0-75.0); Hematocrit 26.9 % (36.0-47.0); Hemoglobin 8.6 g/dL (12.0-16.0); Mean Corpuscular Hemoglobin 31.6 pg (27.0-31.0); Mean Corpuscular Volume 98.9 fL (78.0-98.0); Platelet Count 226 10x3/uL (130-400); RBC Distribution Width 14.9 % (11.5-14.5); Red Blood Cell (RBC) Count 2.72 mill/uL (4.20-5.40)
[2023-11-14 04:21] LABS: ALT (SGPT) 7 U/L (8-55); AST (SGOT) 28 U/L (5-34); Albumin 2.2 g/dL (3.4-4.8); Alkaline Phosphatase 118 U/L (40-110); Anion Gap 21 mmol/L (10-20); BUN (Urea Nitrogen) 55 mg/dL (9.8-20.1); Bilirubin, Total 0.8 mg/dL (0.2-1.2); Calc. Creatinine Clearance 7 mL/min (70-130); Calcium 8.5 mg/dL (7.8-10.44); Carbon Dioxide 22 mmol/L (23-31); Chloride 95 mmol/L (98-107); Estimated GFR 6; Globulin 4.4 g/dL (2.4-3.5); Glucose 193 mg/dL (83-110); Potassium 4.7 mmol/L (3.5-5.1); Protein, Total 6.6 g/dL (5.8-8.1); Sodium 133 mmol/L (136-145)
[2023-11-14 08:31] LABS: Vancomycin, Trough 16.9 ug/mL
[2023-11-14] MEDS ORDERED: Amlodipine 5 MG TAB PO SCH (09:00)
[2023-11-14] MEDS ORDERED: NIFEdipine XL 60 MG ER.TAB PO SCH (09:00)
[2023-11-14] MEDS ORDERED: Losartan 25 MG TAB PO SCH (09:00)
[2023-11-14 09:03] LABS: Iron Binding Capacity, Total 69 mcg/dL (265-497)
[2023-11-14 09:16] LABS: Hemoglobin A1c 6.6 % (4.0-6.0)
[2023-11-14] MEDS: Pantoprazole DR 40 MG TAB PO SCH (09:42)
[2023-11-14] MEDS: Sevelamer Carbonate 800 MG TAB PO SCH (09:42)
[2023-11-14] MEDS: Albumin 25% 25 GM (100 mL) BOT IVPB SCH (09:42)
[2023-11-14] MEDS: FLUoxetine HCl 20 MG CAP PO SCH (09:42)
[2023-11-14] MEDS: Carvedilol 6.25 MG TAB PO SCH (09:51)
[2023-11-14 09:56] LABS: Iron 92 ug/dL (50-170)
[2023-11-14 10:55] LABS: HBSAB Concentration 1765.41 mIU/mL; Hep B Surf AB REACTIVE (NonReactive)
[2023-11-14 11:05] LABS: HBsAg Index 0.31 S/CO (0-0.99); Hep B Surf Ag NONREACTIVE S/CO (NonReactive)
[2023-11-14] MEDS: HumaLOG 300 UNITS/3 ML VIAL SC PRN (12:09)
[2023-11-14 13:16] LABS: Ferritin Greater than 33511.00 ng/mL (10-291)
[2023-11-14] MEDS ORDERED: Vancomycin Hemodialysis Sliding Scale FS SCH (17:00)
[2023-11-14 17:44] VITALS: BMI 24.2
[2023-11-14] MEDS: Vancomycin HCl 500 MG in Sodium Chloride 0.9% 100 ML IVPB SCH (18:05)
[2023-11-15] MEDS: Vancomycin HCl 500 MG in Sodium Chloride 0.9% 100 ML IVPB SCH (02:48)
[2023-11-15 06:03] LABS: Hematocrit 26.7 % (36.0-47.0); Hemoglobin 8.8 g/dL (12.0-16.0); Mean Corpuscular Hemoglobin 32.7 pg (27.0-31.0); Mean Corpuscular Volume 99.3 fL (78.0-98.0); Mean Platelet Volume 9.9 fL (7.4-10.4); Platelet Count 249 10x3/uL (130-400); RBC Distribution Width 14.6 % (11.5-14.5); Red Blood Cell (RBC) Count 2.69 mill/uL (4.20-5.40)
[2023-11-15 06:15] LABS: INR-International Normal Ratio 1.4; Prothrombin Time 17.1 sec (12.0-14.7)
[2023-11-15 06:39] LABS: Anion Gap 17 mmol/L (10-20); BUN (Urea Nitrogen) 17 mg/dL (9.8-20.1); Calc. Creatinine Clearance 16 mL/min (70-130); Calcium 8.5 mg/dL (7.8-10.44); Carbon Dioxide 25 mmol/L (23-31); Chloride 98 mmol/L (98-107); Estimated GFR 18; Glucose 114 mg/dL (83-110); Potassium 3.1 mmol/L (3.5-5.1); Sodium 137 mmol/L (136-145)
[2023-11-15 06:46] LABS: Band 3 % (5-11); Hypochromia SLIGHT = 6-15 cells HPF (0-5); Lymphocytes 1 % (21-51); Macrocytosis SLIGHT = 6-15 cells HPF (0-5); Monocytes 2 % (0-10); Neutrophil 94 % (42-75); Platelet Adequacy Comment Platelets Normal; Polychromasia MODERATE = 3-4 cells HPF (0-2)
[2023-11-15] MEDS: Potassium Chloride 20 MEQ TAB PO SCH (08:46)
[2023-11-15] MEDS: Carvedilol 6.25 MG TAB PO SCH (08:47)
[2023-11-15] MEDS: EPOETIN ALFA-EPBX (ESRD) 10,000 UNITS/ML VIAL SC SCH (08:53)
[2023-11-15] MEDS ORDERED: Lidocaine 1% (PF) 30 ML VIAL ONE (10:17)
[2023-11-15] MEDS ORDERED: Lidocaine 2% PF 5 ML VIAL ONE (10:24)
[2023-11-15] MEDS ORDERED: PROPOFOL 20 ML ONE (10:24)
[2023-11-15] MEDS ORDERED: ePHEDrine Sulfate 50 MG/10 ML VIAL ONE (11:24)
[2023-11-15] MEDS ORDERED: PHENYLEPHRINE-NS 100 MCG/ML 10 ML SYRINGE ONE (11:25)
[2023-11-15] MEDS ORDERED: Sodium Chloride 0.9% 250 ML 500 ML ONE (11:26)
[2023-11-15] MEDS ORDERED: Phenylephrine 10 MG/ML VIAL ONE (11:26)
[2023-11-15] MEDS ORDERED: Sodium Chloride 0.9% 100 ML ONE (11:26)
[2023-11-15] MEDS ORDERED: Promethazine HCl 25 MG/ML VIAL IM PRN (11:46)
[2023-11-15] MEDS ORDERED: Ondansetron HCl/PF 4 MG/2 ML Vial IVP PRN (11:46)
[2023-11-15] MEDS: Ketorolac Tromethamine 30 MG (1 mL) VIAL IVP SCH (17:43)
[2023-11-15] MEDS: Gabapentin 300 MG CAP PO SCH (20:56)
[2023-11-16 05:11] LABS: #Basophils 0.06 10x3/uL (0.0-0.2); %Basophils 0.3 % (0.0-1.0); %Eosinophils 0.9 % (0.0-10.0); %Monocytes 4.8 % (0.0-10.0); %Neutrophils 83.9 % (42.0-75.0); Hematocrit 22.9 % (36.0-47.0); Hemoglobin 7.3 g/dL (12.0-16.0); Mean Corpuscular HGB CONC 31.9 g/dL (32.0-36.0); Mean Corpuscular Hemoglobin 31.7 pg (27.0-31.0); Mean Corpuscular Volume 99.6 fL (78.0-98.0); Mean Platelet Volume 9.8 fL (7.4-10.4); Platelet Count 233 10x3/uL (130-400); RBC Distribution Width 15.3 % (11.5-14.5)
[2023-11-16 05:29] LABS: Anion Gap 15 mmol/L (10-20); BUN (Urea Nitrogen) 28 mg/dL (9.8-20.1); Calc. Creatinine Clearance 12 mL/min (70-130); Carbon Dioxide 26 mmol/L (23-31); Chloride 100 mmol/L (98-107); Estimated GFR 12; Glucose 145 mg/dL (83-110); Potassium 3.6 mmol/L (3.5-5.1); Sodium 137 mmol/L (136-145)
[2023-11-16] MEDS ORDERED: PROPOFOL 20 ML ONE (06:29)
[2023-11-16] MEDS ORDERED: fentaNYL PF 100 MCG/2 ML SYRINGE ONE (06:30)
[2023-11-16] MEDS ORDERED: Lidocaine 1% PF 5 ML VIAL ONE (06:30)
[2023-11-16] MEDS ORDERED: ePHEDrine Sulfate 50 MG/10 ML VIAL ONE (06:30)
[2023-11-16] MEDS ORDERED: Lidocaine 1% (PF) 30 ML VIAL ONE (07:20)
[2023-11-16 22:07] LABS: Hematocrit 28.6 % (36.0-47.0); Hemoglobin 9.3 g/dL (12.0-16.0)
[2023-11-17] MEDS: Gabapentin 100 MG CAP PO SCH (03:00)
[2023-11-17] MEDS: Albumin 25% 25 GM (100 mL) BOT IVPB SCH (03:15)
[2023-11-18] MEDS: Insulin Glargine 30 UNITS/0.3 ML VIAL SC SCH (08:40)
[2023-11-18] MEDS: Carvedilol 6.25 MG TAB PO SCH ×2 (10:51→20:28)
[2023-11-18 11:40] LABS: #Basophils 0.05 10x3/uL (0.0-0.2); %Basophils 0.4 % (0.0-1.0); %Lymphocytes 13.1 % (21.0-51.0); %Monocytes 5.6 % (0.0-10.0); %Neutrophils 75.1 % (42.0-75.0); Hematocrit 30.5 % (36.0-47.0); Hemoglobin 9.8 g/dL (12.0-16.0); Mean Corpuscular HGB CONC 32.1 g/dL (32.0-36.0); Mean Corpuscular Hemoglobin 31.9 pg (27.0-31.0); Mean Corpuscular Volume 99.3 fL (78.0-98.0); Mean Platelet Volume 10.2 fL (7.4-10.4); Platelet Count 219 10x3/uL (130-400); RBC Distribution Width 16.1 % (11.5-14.5); Red Blood Cell (RBC) Count 3.07 mill/uL (4.20-5.40)
[2023-11-18 12:19] LABS: Albumin 2.6 g/dL (3.4-4.8); Anion Gap 15 mmol/L (10-20); BUN (Urea Nitrogen) 27 mg/dL (9.8-20.1); BUN/Creatinine Ratio 9.09; Calc. Creatinine Clearance 15 mL/min (70-130); Calcium 8.1 mg/dL (7.8-10.44); Carbon Dioxide 27 mmol/L (23-31); Chloride 99 mmol/L (98-107); Estimated GFR 16; Glucose 159 mg/dL (83-110); Phosphorus 0.8 mg/dL (2.3-4.7); Potassium 3.2 mmol/L (3.5-5.1); Sodium 138 mmol/L (136-145)
[2023-11-18] MEDS: Morphine 4 MG/ML VIAL SLOW IVP PRN (12:23)
[2023-11-18] MEDS: Piperacillin/Tazobactam 3.375 GM in Sodium Chloride 0.9% 100 ML IVPB SCH (14:22)
[2023-11-18] MEDS: Potassium Chloride 20 MEQ TAB PO SCH (18:01)
[2023-11-18] MEDS: Sodium Phosphate 30 MMOL in Sodium Chloride 0.9% 250 ML 250 ML IVPB SCH (18:03)
[2023-11-18] MEDS: CEFAZOLIN 1 GM in Sodium Chloride 0.9% 100 ML IVPB SCH (20:26)
[2023-11-19 07:48] LABS: Albumin 2.5 g/dL (3.4-4.8); Anion Gap 16 mmol/L (10-20); BUN (Urea Nitrogen) 22 mg/dL (9.8-20.1); BUN/Creatinine Ratio 8.33; Calc. Creatinine Clearance 17 mL/min (70-130); Calcium 7.9 mg/dL (7.8-10.44); Carbon Dioxide 25 mmol/L (23-31); Chloride 102 mmol/L (98-107); Estimated GFR 19; Glucose 90 mg/dL (83-110); Phosphorus 3.8 mg/dL (2.3-4.7); Potassium 4.5 mmol/L (3.5-5.1); Sodium 138 mmol/L (136-145)
[2023-11-19] MEDS: NIFEdipine XL 30 MG ER.TAB PO SCH (08:53)
[2023-11-21 06:21] LABS: Albumin 2.4 g/dL (3.4-4.8); Anion Gap 20 mmol/L (10-20); BUN (Urea Nitrogen) 65 mg/dL (9.8-20.1); BUN/Creatinine Ratio 12.85; Calc. Creatinine Clearance 9 mL/min (70-130); Calcium 8.2 mg/dL (7.8-10.44); Carbon Dioxide 24 mmol/L (23-31); Chloride 94 mmol/L (98-107); Estimated GFR 9; Glucose 80 mg/dL (83-110); Phosphorus 5.4 mg/dL (2.3-4.7); Potassium 5.5 mmol/L (3.5-5.1); Sodium 132 mmol/L (136-145)
[2023-11-21] MEDS: Sevelamer Carbonate 800 MG TAB PO SCH (08:13)
[2023-11-21] MEDS ORDERED: Heparin 10,000 UNITS/ 10 ML VIAL ONE (11:27)
[2023-11-21] MEDS ORDERED: HumaLOG 300 UNITS/3 ML VIAL SC PRN (13:00)
[2023-11-21] MEDS: diphenhydrAMINE 25 MG CAP PO SCH (23:03)
[2023-11-22] MEDS ORDERED: Artificial Tear Sol 15 ML BOT EA EYE PRN (13:44)
[2023-11-22] MEDS ORDERED: Senokot S 8.6-50 MG TAB PO PRN (13:44)
[2023-11-22] MEDS ORDERED: Moisturizing Cream (Eucerin) 113 GM JAR TOP PRN (13:44)
[2023-11-22] MEDS: Polyethylene Glycol 3350 17 GM Packet PO SCH (14:18)
[2023-11-22 20:51] VITALS: BP 143/56; TEMP 98.1
[2023-11-23] MEDS ORDERED: Naloxegol 12.5 MG TAB PO SCH (07:30)
[2023-11-23] MEDS ORDERED: Polyethylene Glycol 3350 17 GM Packet PO SCH (09:00)
== END 2023-11-22 20:20 | DRG 853 ==
LOC: ERS 17:07 → MSONC 19:47
PROVIDERS: ADMIT Student in an Organized Health Care Education/Training Program; ATTEND Family Medicine
PROC: 5A1D70Z Performance of Urinary Filtration, Intermittent, Less than 6 Hours Per Day (ICD-10-PCS; 2023-11-14)
PROC: 0Y6N0ZD Detachment at Left Foot, Partial 4th Ray, Open Approach (ICD-10-PCS; principal; 2023-11-16)
PROC: 0Y6N0ZF Detachment at Left Foot, Partial 5th Ray, Open Approach (ICD-10-PCS; 2023-11-16)
PROC: 0JBR0ZZ Excision of Left Foot Subcutaneous Tissue and Fascia, Open Approach (ICD-10-PCS; 2023-11-16)
DX: A41.01 Sepsis due to Methicillin susceptible Staphylococcus aureus (principal); M72.6 Necrotizing fasciitis; N18.6 End stage renal disease; I12.0 Hypertensive chronic kidney disease with stage 5 chronic kidney disease or end stage renal disease; E11.52 Type 2 diabetes mellitus with diabetic peripheral angiopathy with gangrene; I96 Gangrene, not elsewhere classified; E11.22 Type 2 diabetes mellitus with diabetic chronic kidney disease; D69.1 Qualitative platelet defects; Z99.3 Dependence on wheelchair; K21.9 Gastro-esophageal reflux disease without esophagitis; D63.1 Anemia in chronic kidney disease; E87.6 Hypokalemia; E11.621 Type 2 diabetes mellitus with foot ulcer; L97.529 Non-pressure chronic ulcer of other part of left foot with unspecified severity; Z79.82 Long term (current) use of aspirin; Z79.899 Other long term (current) drug therapy; Z90.49 Acquired absence of other specified parts of digestive tract; Z90.710 Acquired absence of both cervix and uterus; E83.39 Other disorders of phosphorus metabolism
CPT/HCPCS: 36415; 36416; 36430; 71045; 80048; 80053; 80069; 80202; 82728; 83036; 83540; 83550; 83605; 83880; 84484; 85025; 85610; 85730; 86141; 86706; 86850; 86900; 86901; 87040; 87070; 87077; 87149; 87186; 87205; 87340; 88305; 88307; 88311; 90935; 93005; 93306; 96365; 96367; 96375; 97139; G0257; J0690; J1644; J1815; J1885; J2001; J2270; J2371; J2405; J2543; J2704; J3370; J3370-JW; J3490; J7050; P9016; P9047; Q5105

== ENCOUNTER 2023-12-15 20:55 | Emergency (ER) | payer MEDICARE ==
[2023-12-16 00:01] LABS: %Basophils 1.1 % (0.0-1.0); %Eosinophils 3.4 % (0.0-10.0); %Lymphocytes 12.7 % (21.0-51.0); %Monocytes 8.9 % (0.0-10.0); %Neutrophils 73.7 % (42.0-75.0); Hematocrit 38.7 % (36.0-47.0); Hemoglobin 12.6 g/dL (12.0-16.0); Mean Corpuscular HGB CONC 32.6 g/dL (32.0-36.0); Mean Corpuscular Hemoglobin 33.1 pg (27.0-31.0); Mean Corpuscular Volume 101.6 fL (78.0-98.0); Mean Platelet Volume 9.2 fL (7.4-10.4); Platelet Count 233 10x3/uL (130-400); RBC Distribution Width 15.7 % (11.5-14.5); Red Blood Cell (RBC) Count 3.81 mill/uL (4.20-5.40)
[2023-12-16 00:29] LABS: ALT (SGPT) Less than 5 U/L (8-55); AST (SGOT) 13 U/L (5-34); Albumin 3.3 g/dL (3.4-4.8); Alkaline Phosphatase 234 U/L (40-110); Anion Gap 20 mmol/L (10-20); BUN (Urea Nitrogen) 54 mg/dL (9.8-20.1); Bilirubin, Total 0.3 mg/dL (0.2-1.2); Calc. Creatinine Clearance 0 mL/min (70-130); Calcium 8.8 mg/dL (7.8-10.44); Carbon Dioxide 22 mmol/L (23-31); Chloride 98 mmol/L (98-107); Estimated GFR 9; Globulin 5.6 g/dL (2.4-3.5); Glucose 134 mg/dL (83-110); Potassium 3.9 mmol/L (3.5-5.1); Protein, Total 8.9 g/dL (5.8-8.1); Sodium 136 mmol/L (136-145)
== END 2023-12-16 01:43 | disposition home or self-care (01) ==
LOC: ERS 20:55
DX: L08.9 Local infection of the skin and subcutaneous tissue, unspecified (principal); I12.0 Hypertensive chronic kidney disease with stage 5 chronic kidney disease or end stage renal disease; E11.22 Type 2 diabetes mellitus with diabetic chronic kidney disease; N18.6 End stage renal disease; K21.9 Gastro-esophageal reflux disease without esophagitis; Z99.2 Dependence on renal dialysis; Z55.6 Problems related to health literacy; Z79.899 Other long term (current) drug therapy
CPT/HCPCS: 36415; 80053; 85025; 99283

== ENCOUNTER 2024-03-06 17:06 | Inpatient (IN) | payer MEDICARE ==
[2024-03-06 19:20] LABS: #Basophils 0.07 10x3/uL (0.0-0.2); %Basophils 0.3 % (0.0-1.0); %Eosinophils 1.3 % (0.0-10.0); %Lymphocytes 8.5 % (21.0-51.0); %Monocytes 6.8 % (0.0-10.0); %Neutrophils 82.3 % (42.0-75.0); Hematocrit 17.2 % (36.0-47.0); Hemoglobin 5.8 g/dL (12.0-16.0); Mean Corpuscular HGB CONC 33.7 g/dL (32.0-36.0); Mean Corpuscular Hemoglobin 32.6 pg (27.0-31.0); Mean Corpuscular Volume 96.6 fL (78.0-98.0); Mean Platelet Volume 9.3 fL (7.4-10.4); Platelet Count 348 10x3/uL (130-400); RBC Distribution Width 12.6 % (11.5-14.5); Red Blood Cell (RBC) Count 1.78 mill/uL (4.20-5.40)
[2024-03-06 19:24] LABS: ALT (SGPT) 10 U/L (8-55); AST (SGOT) 11 U/L (5-34); Albumin 2.6 g/dL (3.4-4.8); Alkaline Phosphatase 167 U/L (40-110); Anion Gap 19 mmol/L (10-20); BUN (Urea Nitrogen) 42 mg/dL (9.8-20.1); Bilirubin, Total 0.5 mg/dL (0.2-1.2); Calc. Creatinine Clearance 0 mL/min (70-130); Calcium 8.7 mg/dL (7.8-10.44); Carbon Dioxide 25 mmol/L (23-31); Chloride 96 mmol/L (98-107); Estimated GFR 7; Globulin 5.7 g/dL (2.4-3.5); Glucose 178 mg/dL (83-110); Potassium 4.1 mmol/L (3.5-5.1); Protein, Total 8.3 g/dL (5.8-8.1); Sodium 136 mmol/L (136-145)
[2024-03-06] MEDS ORDERED: Sodium Chloride 0.9% 100 ML ONE (19:55)
[2024-03-06] MEDS ORDERED: Cefepime 2 GM VIAL ONE (19:55)
[2024-03-06 21:58] LABS: INR-International Normal Ratio 1.2; Prothrombin Time 14.7 sec (12.0-14.7)
[2024-03-06 21:59] LABS: PTT 45.9 sec (22.9-36.1)
[2024-03-06] MEDS: Vancomycin (BATCH) 1.25 GM in Premix 1 BAG IVPB SCH (23:46)
[2024-03-06 23:53] VITALS: BMI 23.1
[2024-03-07] MEDS: Acetaminophen 500 MG TAB PO SCH (00:35)
[2024-03-07] MEDS: diphenhydrAMINE 50 MG/ML VIAL IVP SCH (00:36)
[2024-03-07] MEDS: Sodium Chloride 0.9% 1,000 ML IV SCH (00:36)
[2024-03-07] MEDS ORDERED: Glucagon 1 MG/ML KIT IM PRN (01:34)
[2024-03-07] MEDS ORDERED: Dextrose 5% in Water 1,000 ML IV PRN (01:34)
[2024-03-07] MEDS ORDERED: Dextrose 50% Abboject 50 ML SYRINGE SLOW IVP PRN (01:34)
[2024-03-07] MEDS ORDERED: Vancomycin Hemodialysis Sliding Scale FS SCH (03:15)
[2024-03-07 08:03] LABS: ALT (SGPT) 8 U/L (8-55); AST (SGOT) 9 U/L (5-34); Alkaline Phosphatase 163 U/L (40-110); Anion Gap 17 mmol/L (10-20); BUN (Urea Nitrogen) 52 mg/dL (9.8-20.1); Bilirubin, Total 0.8 mg/dL (0.2-1.2); Calc. Creatinine Clearance 7 mL/min (70-130); Calcium 7.9 mg/dL (7.8-10.44); Carbon Dioxide 21 mmol/L (23-31); Chloride 102 mmol/L (98-107); Estimated GFR 7; Globulin 4.8 g/dL (2.4-3.5); Glucose 253 mg/dL (83-110); Protein, Total 6.8 g/dL (5.8-8.1); Sodium 136 mmol/L (136-145)
[2024-03-07 08:04] LABS: Hemoglobin A1c 6.2 % (4.0-6.0)
[2024-03-07] MEDS: Insulin Lispro 100 UNIT/ML 10 ML VIAL SC PRN (09:46)
[2024-03-07 10:04] LABS: Vancomycin, Trough 19.3 ug/mL
[2024-03-07] MEDS ORDERED: Heparin 10,000 UNITS/ 10 ML VIAL ONE (10:08)
[2024-03-07 11:33] LABS: Hematocrit 33.2 % (36.0-47.0); Hemoglobin 11.3 g/dL (12.0-16.0)
[2024-03-07] MEDS: Sevelamer Carbonate 800 MG TAB PO SCH (18:33)
[2024-03-07] MEDS: Vancomycin HCl 500 MG in Sodium Chloride 0.9% 100 ML IVPB SCH (18:33)
[2024-03-07 19:06] LABS: Hematocrit 38.2 % (36.0-47.0); Hemoglobin 13.5 g/dL (12.0-16.0)
[2024-03-07] MEDS: Cefepime 1 GM in Sodium Chloride 0.9% 100 ML IVPB SCH (22:12)
[2024-03-07] MEDS: Acetaminophen 325 MG TAB PO PRN (22:16)
[2024-03-07] MEDS: Famotidine/PF 20 mg/2ml Vial SLOW IVP SCH (22:23)
[2024-03-07] MEDS: Gabapentin 100 MG CAP PO SCH (23:01)
[2024-03-08 05:18] LABS: #Basophils 0.07 10x3/uL (0.0-0.2); %Basophils 0.6 % (0.0-1.0); %Eosinophils 2.3 % (0.0-10.0); %Lymphocytes 11.8 % (21.0-51.0); %Monocytes 6.8 % (0.0-10.0); %Neutrophils 77.9 % (42.0-75.0); Hematocrit 34.7 % (36.0-47.0); Hemoglobin 11.9 g/dL (12.0-16.0); Mean Corpuscular HGB CONC 34.3 g/dL (32.0-36.0); Mean Corpuscular Hemoglobin 31.9 pg (27.0-31.0); Mean Platelet Volume 10.2 fL (7.4-10.4); Platelet Count 212 10x3/uL (130-400); RBC Distribution Width 13.6 % (11.5-14.5); Red Blood Cell (RBC) Count 3.73 mill/uL (4.20-5.40)
[2024-03-08 05:42] LABS: Albumin 1.9 g/dL (3.4-4.8); Anion Gap 13 mmol/L (10-20); BUN (Urea Nitrogen) 24 mg/dL (9.8-20.1); BUN/Creatinine Ratio 6.67; Calc. Creatinine Clearance 12 mL/min (70-130); Calcium 8.1 mg/dL (7.8-10.44); Carbon Dioxide 21 mmol/L (23-31); Chloride 103 mmol/L (98-107); Estimated GFR 13; Glucose 101 mg/dL (83-110); Phosphorus 2.5 mg/dL (2.3-4.7); Potassium 3.4 mmol/L (3.5-5.1); Sodium 134 mmol/L (136-145)
[2024-03-08] MEDS ORDERED: Lidocaine 1% (PF) 30 ML VIAL ONE (06:53)
[2024-03-08] MEDS ORDERED: CEFAZOLIN 2 GM VIAL ONE (07:13)
[2024-03-08] MEDS ORDERED: Sodium Chloride 0.9% 0 ML ONE (07:13)
[2024-03-08] MEDS ORDERED: PROPOFOL 20 ML ONE (07:13)
[2024-03-08] MEDS ORDERED: Lidocaine 1% PF 5 ML VIAL ONE (07:14)
[2024-03-08] MEDS ORDERED: Ondansetron PF 4 MG/2 ML Vial ONE (07:14)
[2024-03-08] MEDS ORDERED: ePHEDrine Sulfate 50 MG/10 ML VIAL ONE (07:44)
[2024-03-08] MEDS ORDERED: Metoclopramide HCl 10 MG (2 mL) VIAL ONE (08:23)
[2024-03-08] MEDS ORDERED: fentaNYL 50 mcg/mL 1 mL Vial ONE ×5 (08:25→10:58)
[2024-03-08] MEDS: Amlodipine 5 MG TAB PO SCH (12:51)
[2024-03-08] MEDS: Pantoprazole DR 40 MG TAB PO SCH (12:52)
[2024-03-08] MEDS: Morphine 2 MG/ML VIAL SLOW IVP PRN (13:38)
[2024-03-08 13:40] VITALS: BMI 23.1
[2024-03-08] MEDS: Potassium Chloride 20 MEQ TAB PO SCH (13:40)
[2024-03-08] MEDS: Ondansetron PF 4 MG/2 ML Vial IVP PRN (13:40)
[2024-03-09 08:13] LABS: Hematocrit 29.5 % (36.0-47.0); Hemoglobin 9.7 g/dL (12.0-16.0); Mean Corpuscular HGB CONC 32.9 g/dL (32.0-36.0); Mean Corpuscular Hemoglobin 32.4 pg (27.0-31.0); Mean Corpuscular Volume 98.7 fL (78.0-98.0); Mean Platelet Volume 9.2 fL (7.4-10.4); Platelet Count 242 10x3/uL (130-400); RBC Distribution Width 13.6 % (11.5-14.5); Red Blood Cell (RBC) Count 2.99 mill/uL (4.20-5.40)
[2024-03-09 08:47] LABS: Anion Gap 17 mmol/L (10-20); BUN (Urea Nitrogen) 41 mg/dL (9.8-20.1); Calc. Creatinine Clearance 9 mL/min (70-130); Calcium 7.9 mg/dL (7.8-10.44); Carbon Dioxide 20 mmol/L (23-31); Chloride 102 mmol/L (98-107); Estimated GFR 9; Glucose 182 mg/dL (83-110); Potassium 4.9 mmol/L (3.5-5.1); Sodium 134 mmol/L (136-145)
[2024-03-09] MEDS ORDERED: Epoetin (ESRD) 10,000 UNITS/ML VIAL SC SCH (09:30)
[2024-03-09] MEDS: Carvedilol 6.25 MG TAB PO SCH ×2 (10:01→18:15)
[2024-03-09] MEDS: NIFEdipine XL 30 MG ER.TAB PO SCH (10:03)
[2024-03-09] MEDS ORDERED: Acetaminophen/Codeine 30-300mg Tablet PO PRN (12:48)
[2024-03-09] MEDS: EPOETIN ALFA-EPBX (ESRD) 10,000 UNITS/ML VIAL SC SCH (13:25)
[2024-03-09] MEDS ORDERED: Heparin 10,000 UNITS/ 10 ML VIAL ONE (13:45)
[2024-03-09] MEDS: Vancomycin HCl 500 MG in Sodium Chloride 0.9% 100 ML IVPB SCH (20:55)
[2024-03-10] MEDS: Morphine 4 MG/ML VIAL SLOW IVP PRN (04:35)
[2024-03-10 06:09] LABS: Hematocrit 28.8 % (36.0-47.0); Hemoglobin 9.4 g/dL (12.0-16.0); Mean Corpuscular HGB CONC 32.6 g/dL (32.0-36.0); Mean Corpuscular Hemoglobin 31.9 pg (27.0-31.0); Mean Corpuscular Volume 97.6 fL (78.0-98.0); Mean Platelet Volume 9.2 fL (7.4-10.4); Platelet Count 244 10x3/uL (130-400); RBC Distribution Width 13.2 % (11.5-14.5); Red Blood Cell (RBC) Count 2.95 mill/uL (4.20-5.40)
[2024-03-10 06:56] LABS: Anion Gap 13 mmol/L (10-20); BUN (Urea Nitrogen) 25 mg/dL (9.8-20.1); Calc. Creatinine Clearance 13 mL/min (70-130); Calcium 8.2 mg/dL (7.8-10.44); Carbon Dioxide 28 mmol/L (23-31); Chloride 100 mmol/L (98-107); Estimated GFR 15; Glucose 172 mg/dL (83-110); Potassium 3.9 mmol/L (3.5-5.1); Sodium 137 mmol/L (136-145)
[2024-03-10 07:02] LABS: Iron 32 ug/dL (50-170); Iron Binding Capacity, Total 80 mcg/dL (265-497)
[2024-03-10] MEDS: Polyethylene Glycol 3350 17 GM Packet PO SCH (08:44)
[2024-03-10] MEDS: Docusate 100 MG CAP PO SCH (08:44)
[2024-03-10] MEDS: Insulin Lispro 100 UNIT/ML 10 ML VIAL SC PRN (21:14)
[2024-03-11] MEDS: Docusate 100 MG CAP PO PRN (09:13)
[2024-03-11] MEDS ORDERED: traMADol HCl 50 MG TAB PO PRN (11:43)
[2024-03-11] MEDS: Polyethylene Glycol 3350 17 GM Packet PO PRN (12:18)
[2024-03-12 06:23] LABS: Hemoglobin 9.8 g/dL (12.0-16.0); Mean Corpuscular HGB CONC 32.7 g/dL (32.0-36.0); Mean Corpuscular Hemoglobin 32.6 pg (27.0-31.0); Mean Corpuscular Volume 99.7 fL (78.0-98.0); Mean Platelet Volume 9.3 fL (7.4-10.4); Platelet Count 278 10x3/uL (130-400); RBC Distribution Width 13.1 % (11.5-14.5); Red Blood Cell (RBC) Count 3.01 mill/uL (4.20-5.40)
[2024-03-12 07:10] LABS: Anion Gap 17 mmol/L (10-20); BUN (Urea Nitrogen) 71 mg/dL (9.8-20.1); Calc. Creatinine Clearance 6 mL/min (70-130); Calcium 8.1 mg/dL (7.8-10.44); Carbon Dioxide 27 mmol/L (23-31); Chloride 95 mmol/L (98-107); Estimated GFR 6; Glucose 202 mg/dL (83-110); Potassium 5.7 mmol/L (3.5-5.1); Sodium 133 mmol/L (136-145)
[2024-03-12 08:11] LABS: Vancomycin, Trough 20.4 ug/mL
[2024-03-12] MEDS ORDERED: Morphine 4 MG/ML VIAL SLOW IVP PRN (08:52)
[2024-03-12] MEDS ORDERED: Morphine 2 MG/ML VIAL SLOW IVP PRN (08:57)
[2024-03-12] MEDS ORDERED: Heparin 10,000 UNITS/ 10 ML VIAL ONE (10:16)
[2024-03-12] MEDS: NIFEdipine XL 30 MG ER.TAB PO SCH (10:30)
[2024-03-12] MEDS: Polyethylene Glycol 3350 17 GM Packet PO SCH (10:31)
[2024-03-12 14:03] LABS: Actual Bicarbonate (HCO3a) 26.8 mEq/L (22-28); Base Excess (BEa) 3.1 mEq/L (-2.0 to +3.0); CO2 Tension 37.6 mmHg (35.0-45.0); Calcium, Ionized (arterial) 1.12 mmol/L (1.12-1.30); Carboxyhemoglobin (COHb) 1.3 gm% (0.0-3.0); Hematocrit-ABG 35 % (36.0-47.0); Hemoglobin (Hb) 11.9 g/dL (12.0-16.0); Potassium - ABG Lab 3.63 mmol/L (3.70-5.30)
[2024-03-12 14:04] LABS: O2 Tension (PaO2), arterial 48.4 mmHg (> 70.0); Puncture Site Right Brachial art
[2024-03-12 15:37] LABS: Anion Gap 12 mmol/L (10-20); BUN (Urea Nitrogen) 20 mg/dL (9.8-20.1); Calc. Creatinine Clearance 14 mL/min (70-130); Calcium 9.1 mg/dL (7.8-10.44); Carbon Dioxide 28 mmol/L (23-31); Chloride 98 mmol/L (98-107); Estimated GFR 16; Glucose 161 mg/dL (83-110); Potassium 3.8 mmol/L (3.5-5.1); Sodium 134 mmol/L (136-145)
[2024-03-12] MEDS: Bisacodyl 10 MG SUPP PR SCH (16:01)
[2024-03-12] MEDS: Vancomycin HCl 250 MG in Sodium Chloride 0.9% 100 ML IVPB SCH (17:20)
[2024-03-13] MEDS: Carvedilol 6.25 MG TAB PO SCH (08:46)
[2024-03-13 09:04] VITALS: BP 130/66; TEMP 98
[2024-03-13] MEDS: Insulin Lispro 100 UNIT/ML 10 ML VIAL SC PRN (12:06)
== END 2024-03-13 13:05 | DRG 853 ==
LOC: ERS 17:06 → MSONC 21:40
PROVIDERS: ADMIT Hospitalist; ATTEND Internal Medicine
PROC: 3E03329 Introduction of Other Anti-infective into Peripheral Vein, Percutaneous Approach (ICD-10-PCS; 2024-03-06)
PROC: 30233N1 Transfusion of Nonautologous Red Blood Cells into Peripheral Vein, Percutaneous Approach (ICD-10-PCS; 2024-03-07)
PROC: 0Y6H0Z3 Detachment at Right Lower Leg, Low, Open Approach (ICD-10-PCS; principal; 2024-03-08)
PROC: 4A033R1 Measurement of Arterial Saturation, Peripheral, Percutaneous Approach (ICD-10-PCS; 2024-03-12)
DX: A41.9 Sepsis, unspecified organism (principal); G92.8 Other toxic encephalopathy; N18.6 End stage renal disease; G93.41 Metabolic encephalopathy; M86.8X7 Other osteomyelitis, ankle and foot; I12.0 Hypertensive chronic kidney disease with stage 5 chronic kidney disease or end stage renal disease; E87.1 Hypo-osmolality and hyponatremia; D50.9 Iron deficiency anemia, unspecified; E87.6 Hypokalemia; D63.1 Anemia in chronic kidney disease; E11.621 Type 2 diabetes mellitus with foot ulcer; L97.519 Non-pressure chronic ulcer of other part of right foot with unspecified severity; E11.22 Type 2 diabetes mellitus with diabetic chronic kidney disease; E11.69 Type 2 diabetes mellitus with other specified complication; Z89.512 Acquired absence of left leg below knee; Z79.82 Long term (current) use of aspirin; Z79.899 Other long term (current) drug therapy; Z79.4 Long term (current) use of insulin; Z99.2 Dependence on renal dialysis
CPT/HCPCS: 36415; 36416; 36430; 36600; 71045; 80048; 80053; 80069; 80202; 82728; 82805; 83036; 83540; 83550; 83605; 85014; 85018; 85025; 85027; 85610; 85730; 86850; 86900; 86901; 87040; 88307; 93005; 93010; 96374; 96375; 97139; J0692; J1200; J1644; J1815; J2001; J2272; J2405; J2704; J2765; J3010; J3370; J3490; J7030; P9016; Q5105

== ENCOUNTER 2024-06-26 18:02 | Emergency (ER) | payer MEDICARE ==
[2024-06-26] MEDS ORDERED: Morphine 2 MG/ML VIAL ONE (19:07)
[2024-06-26 19:08] LABS: #Basophils 0.09 10x3/uL (0.0-0.2); %Basophils 1.2 % (0.0-1.0); %Eosinophils 4.3 % (0.0-10.0); %Lymphocytes 23.7 % (21.0-51.0); %Monocytes 10.6 % (0.0-10.0); %Neutrophils 59.9 % (42.0-75.0); Hematocrit 32.2 % (36.0-47.0); Hemoglobin 10.6 g/dL (12.0-16.0); Mean Corpuscular HGB CONC 32.9 g/dL (32.0-36.0); Mean Corpuscular Hemoglobin 31.9 pg (27.0-31.0); Mean Platelet Volume 9.3 fL (7.4-10.4); Platelet Count 238 10x3/uL (130-400); RBC Distribution Width 13.7 % (11.5-14.5); Red Blood Cell (RBC) Count 3.32 mill/uL (4.20-5.40)
[2024-06-26 19:28] LABS: ALT (SGPT) Less than 5 U/L (8-55); AST (SGOT) 8 U/L (5-34); Albumin 2.9 g/dL (3.4-4.8); Alkaline Phosphatase 142 U/L (40-110); Anion Gap 16 mmol/L (10-20); BUN (Urea Nitrogen) 48 mg/dL (9.8-20.1); Bilirubin, Total 0.3 mg/dL (0.2-1.2); Calc. Creatinine Clearance 0 mL/min (70-130); Calcium 8.2 mg/dL (7.8-10.44); Carbon Dioxide 26 mmol/L (23-31); Chloride 102 mmol/L (98-107); Estimated GFR 11; Globulin 4.8 g/dL (2.4-3.5); Glucose 115 mg/dL (83-110); Protein, Total 7.7 g/dL (5.8-8.1); Sodium 140 mmol/L (136-145)
[2024-06-26 19:31] LABS: Troponin I 0.031 ng/mL (< 0.028)
[2024-06-26] MEDS ORDERED: hydrALAZINE 20 MG/ML VIAL ONE (20:04)
== END 2024-06-26 23:06 | disposition home or self-care (01) ==
LOC: ERS 18:02
DX: I12.0 Hypertensive chronic kidney disease with stage 5 chronic kidney disease or end stage renal disease (principal); E11.22 Type 2 diabetes mellitus with diabetic chronic kidney disease; N18.6 End stage renal disease; K21.9 Gastro-esophageal reflux disease without esophagitis; Z79.899 Other long term (current) drug therapy; Z99.2 Dependence on renal dialysis
CPT/HCPCS: 80053; 84484; 85025; 93005; J0360; J2272; 36415; 96374; 96375

== ENCOUNTER 2024-07-18 08:23 | Emergency (ER) | payer MEDICARE ==
[2024-07-18 10:01] LABS: #Basophils 0.09 10x3/uL (0.0-0.2); %Basophils 1.1 % (0.0-1.0); %Eosinophils 5.6 % (0.0-10.0); %Lymphocytes 22.5 % (21.0-51.0); %Neutrophils 63.4 % (42.0-75.0); Hematocrit 36.2 % (36.0-47.0); Hemoglobin 11.8 g/dL (12.0-16.0); Mean Corpuscular HGB CONC 32.6 g/dL (32.0-36.0); Mean Corpuscular Hemoglobin 32.6 pg (27.0-31.0); Mean Platelet Volume 9.8 fL (7.4-10.4); Platelet Count 229 10x3/uL (130-400); RBC Distribution Width 14.6 % (11.5-14.5); Red Blood Cell (RBC) Count 3.62 mill/uL (4.20-5.40)
[2024-07-18 10:34] LABS: ALT (SGPT) Less than 7 U/L (Less than 34); AST (SGOT) 15 U/L (11-34); Albumin 3.3 g/dL (3.1-4.5); Alkaline Phosphatase 133 U/L (40-110); Anion Gap 19 mmol/L (10-20); BUN (Urea Nitrogen) 60 mg/dL (9.8-20.1); Bilirubin, Total 0.5 mg/dL (0.3-1.2); Calc. Creatinine Clearance 0 mL/min (70-130); Calcium 7.9 mg/dL (7.8-10.44); Carbon Dioxide 19 mmol/L (23-31); Chloride 107 mmol/L (98-107); Estimated GFR 7; Globulin 4.7 g/dL (2.4-3.5); Glucose 126 mg/dL (83-110); Potassium 5.4 mmol/L (3.5-5.1); Sodium 140 mmol/L (136-145)
== END 2024-07-18 14:04 | disposition home or self-care (01) ==
LOC: ERS 08:23
DX: T23.002A Burn of unspecified degree of left hand, unspecified site, initial encounter (principal); I12.0 Hypertensive chronic kidney disease with stage 5 chronic kidney disease or end stage renal disease; E11.22 Type 2 diabetes mellitus with diabetic chronic kidney disease; N18.6 End stage renal disease; Z99.2 Dependence on renal dialysis; Z79.899 Other long term (current) drug therapy
CPT/HCPCS: 36415; 80053; 83605; 85025; 87040; 99283

== ENCOUNTER 2025-04-15 14:48 | Inpatient (IN) | payer MEDICARE ==
[~2025-04-15 14:48] MED LIST changes: -Iopamidol 370 76% 100 ML VIAL ONE; +Iopamidol-370 76% 500 ML MDV (1 ML CHARGE) ONE
[2025-04-15 16:26] LABS: #Basophils 0.13 10x3/uL (0.0-0.2); #Eosinophils 0.46 10x3/uL (0.0-0.7); #Monocytes 0.77 10x3/uL (0.11-0.59); #Neutrophils 7.91 10x3/uL (1.40-6.50); %Basophils 1.2 % (0.0-1.0); %Eosinophils 4.3 % (0.0-10.0); %Lymphocytes 13.2 % (21.0-51.0); %Monocytes 7.2 % (0.0-10.0); %Neutrophils 73.8 % (42.0-75.0); Hematocrit 30.4 % (36.0-47.0); Hemoglobin 9.8 g/dL (12.0-16.0); Mean Corpuscular Hemoglobin 30.5 pg (27.0-31.0); Mean Corpuscular Volume 94.7 fL (78.0-98.0); Platelet Count 222 10x3/uL (130-400); Red Blood Cell (RBC) Count 3.21 mill/uL (4.20-5.40); White Blood Cell (WBC) Count 10.71 10x3/uL (4.8-10.8)
[2025-04-15 16:47] LABS: ALT (SGPT) Less than 7 U/L (Less than 34); AST (SGOT) 15 U/L (11-34); Albumin 3.1 g/dL (3.1-4.5); Alkaline Phosphatase 95 U/L (40-110); Anion Gap 14 mmol/L (10-20); BUN (Urea Nitrogen) 22 mg/dL (9.8-20.1); Bilirubin, Total 0.5 mg/dL (0.3-1.2); Calc. Creatinine Clearance 0 mL/min (70-130); Calcium 8.3 mg/dL (7.8-10.44); Carbon Dioxide 26 mmol/L (23-31); Chloride 99 mmol/L (98-107); Globulin 4.0 g/dL (2.4-3.5); Glucose 128 mg/dL (83-110); Magnesium 1.6 mg/dL (1.6-2.6); Potassium 3.2 mmol/L (3.5-5.1); Sodium 136 mmol/L (136-145)
[2025-04-15] MEDS ORDERED: Nitroglycerin 2% Ointment 1 INCH/1 GM Packet ONE (17:29)
[2025-04-15] MEDS ORDERED: Glucagon 1 MG/ML KIT IM PRN (18:02)
[2025-04-15] MEDS ORDERED: Ondansetron PF 4 MG/2 ML Vial IVP PRN (18:02)
[2025-04-15] MEDS ORDERED: Calcium Carbonate 500 MG ChewTAB PO PRN (18:02)
[2025-04-15] MEDS ORDERED: Guaifenesin DM 100-10/5 ML UDCUP PO PRN (18:02)
[2025-04-15] MEDS ORDERED: Senokot S 8.6-50 MG TAB PO PRN (18:02)
[2025-04-15] MEDS ORDERED: Dextrose 50% Abboject 50 ML SYRINGE SLOW IVP PRN (18:02)
[2025-04-15] MEDS ORDERED: Nitroglycerin 0.4 MG TAB (25 Tab Bottle) SL PRN (18:12)
[2025-04-15 19:17] LABS: Magnesium 1.7 mg/dL (1.6-2.6)
[2025-04-15] MEDS: Carvedilol 6.25 MG TAB PO SCH (20:01)
[2025-04-15 20:15] VITALS: BMI 47.1
[2025-04-15] MEDS: Acetaminophen 325 MG TAB PO PRN (20:55)
[2025-04-15] MEDS: Heparin 5,000 UNITS/ML VIAL SC SCH (20:56)
[2025-04-15] MEDS: Ciprofloxacin 0.2% Otic (0.25ML CONTAINER) R EAR SCH (20:56)
[2025-04-15] MEDS: Gabapentin 100 MG CAP PO SCH (20:56)
[2025-04-15] MEDS: Nystatin Powder 15 GM BOT TOP PRN (22:00)
[2025-04-16 04:28] LABS: #Basophils 0.11 10x3/uL (0.0-0.2); #Eosinophils 0.39 10x3/uL (0.0-0.7); #Monocytes 0.95 10x3/uL (0.11-0.59); #Neutrophils 5.05 10x3/uL (1.40-6.50); %Basophils 1.3 % (0.0-1.0); %Eosinophils 4.7 % (0.0-10.0); %Lymphocytes 21.1 % (21.0-51.0); %Monocytes 11.5 % (0.0-10.0); %Neutrophils 61.2 % (42.0-75.0); Hematocrit 27.4 % (36.0-47.0); Hemoglobin 8.7 g/dL (12.0-16.0); Mean Corpuscular Hemoglobin 30.7 pg (27.0-31.0); Mean Corpuscular Volume 96.8 fL (78.0-98.0); Platelet Count 186 10x3/uL (130-400); Red Blood Cell (RBC) Count 2.83 mill/uL (4.20-5.40); White Blood Cell (WBC) Count 8.26 10x3/uL (4.8-10.8)
[2025-04-16 04:53] LABS: Anion Gap 14 mmol/L (10-20); BUN (Urea Nitrogen) 32 mg/dL (9.8-20.1); Calc. Creatinine Clearance 10 mL/min (70-130); Calcium 7.9 mg/dL (7.8-10.44); Carbon Dioxide 23 mmol/L (23-31); Chloride 105 mmol/L (98-107); Glucose 119 mg/dL (83-110); Potassium 3.5 mmol/L (3.5-5.1); Sodium 138 mmol/L (136-145)
[2025-04-16 10:21] VITALS: BMI 47.1
[2025-04-16] MEDS: Folic Acid/Vit B Comp W-C PO SCH (10:22)
[2025-04-16] MEDS: Losartan 25 MG TAB PO SCH (10:22)
[2025-04-16] MEDS: Carvedilol 6.25 MG TAB PO SCH (10:23)
[2025-04-16] MEDS: Aspirin 81 mg Enteric Coated Tablet PO SCH (10:23)
[2025-04-16] MEDS: Pantoprazole 40 MG DR.TAB PO SCH (10:23)
[2025-04-17] MEDS: Heparin 10,000 UNITS/ 10 ML VIAL CATH PRN (17:56)
[2025-04-18 06:34] LABS: #Basophils 0.08 10x3/uL (0.0-0.2); #Eosinophils 0.44 10x3/uL (0.0-0.7); #Monocytes 0.72 10x3/uL (0.11-0.59); #Neutrophils 5.64 10x3/uL (1.40-6.50); %Basophils 1.0 % (0.0-1.0); %Eosinophils 5.3 % (0.0-10.0); %Lymphocytes 17.2 % (21.0-51.0); %Monocytes 8.6 % (0.0-10.0); %Neutrophils 67.7 % (42.0-75.0); Hematocrit 28.8 % (36.0-47.0); Hemoglobin 8.9 g/dL (12.0-16.0); Mean Corpuscular Hemoglobin 30.6 pg (27.0-31.0); Mean Corpuscular Volume 99.0 fL (78.0-98.0); Platelet Count 179 10x3/uL (130-400); Red Blood Cell (RBC) Count 2.91 mill/uL (4.20-5.40); White Blood Cell (WBC) Count 8.33 10x3/uL (4.8-10.8)
[2025-04-18 06:50] LABS: Anion Gap 13 mmol/L (10-20); BUN (Urea Nitrogen) 19 mg/dL (9.8-20.1); Calc. Creatinine Clearance 13 mL/min (70-130); Calcium 8.3 mg/dL (7.8-10.44); Carbon Dioxide 29 mmol/L (23-31); Chloride 100 mmol/L (98-107); Glucose 86 mg/dL (83-110); Potassium 4.4 mmol/L (3.5-5.1); Sodium 138 mmol/L (136-145)
[2025-04-18 11:53] VITALS: TEMP 99.2
[2025-04-18 16:32] VITALS: BP 136/99
[2025-04-19] MEDS ORDERED: PNEUMOC 20-VAL CONJ-DIP CRM/PF 0.5 ML SYRINGE IM ONE (09:00)
[2025-04-19] MEDS ORDERED: FLU (Fluad Triv) 25-26 (65UP)PF 45 MCG/0.5 ML Syringe IM ONE (09:00)
== END 2025-04-18 16:54 | disposition home or self-care (01) | DRG 313 ==
LOC: ERS 14:48 → OBS 18:00 → OBSVTOIN 04-16 16:37 → 2NO 04-16 18:07
PROVIDERS: ADMIT Student in an Organized Health Care Education/Training Program; ATTEND Student in an Organized Health Care Education/Training Program
PROC: 3E03329 Introduction of Other Anti-infective into Peripheral Vein, Percutaneous Approach (ICD-10-PCS; principal; 2025-04-15)
PROC: 5A1D70Z Performance of Urinary Filtration, Intermittent, Less than 6 Hours Per Day (ICD-10-PCS; 2025-04-17)
DX: R07.9 Chest pain, unspecified (principal); N18.6 End stage renal disease; I12.0 Hypertensive chronic kidney disease with stage 5 chronic kidney disease or end stage renal disease; R53.81 Other malaise; E11.9 Type 2 diabetes mellitus without complications; Z98.890 Other specified postprocedural states; F41.9 Anxiety disorder, unspecified; R00.0 Tachycardia, unspecified; E87.6 Hypokalemia; R51.9 Headache, unspecified; N28.89 Other specified disorders of kidney and ureter; K21.9 Gastro-esophageal reflux disease without esophagitis; D63.1 Anemia in chronic kidney disease; Z79.899 Other long term (current) drug therapy
CPT/HCPCS: 36415; 36416; 70450; 71045; 71275; 74174; 78452; 80048; 80053; 83735; 84443; 84484; 85025; 87428; 90935; 93005; 93010; 93017; A9502; G0257; J1644; J1815; J2785; J7030; Q9967

== ENCOUNTER 2025-05-17 14:12 | Emergency (ER) | payer MEDICARE ==
[2025-05-17 17:11] LABS: #Basophils 0.12 10x3/uL (0.0-0.2); #Eosinophils 0.45 10x3/uL (0.0-0.7); #Monocytes 0.66 10x3/uL (0.11-0.59); #Neutrophils 5.61 10x3/uL (1.40-6.50); %Basophils 1.4 % (0.0-1.0); %Eosinophils 5.3 % (0.0-10.0); %Lymphocytes 19.7 % (21.0-51.0); %Monocytes 7.7 % (0.0-10.0); %Neutrophils 65.7 % (42.0-75.0); Hematocrit 33.8 % (36.0-47.0); Hemoglobin 11.1 g/dL (12.0-16.0); Mean Corpuscular Hemoglobin 31.9 pg (27.0-31.0); Mean Corpuscular Volume 97.1 fL (78.0-98.0); Platelet Count 206 10x3/uL (130-400); Red Blood Cell (RBC) Count 3.48 mill/uL (4.20-5.40); White Blood Cell (WBC) Count 8.54 10x3/uL (4.8-10.8)
[2025-05-17 17:32] LABS: ALT (SGPT) Less than 7 U/L (Less than 34); AST (SGOT) 12 U/L (11-34); Albumin 3.4 g/dL (3.1-4.5); Alkaline Phosphatase 99 U/L (40-110); Anion Gap 14 mmol/L (10-20); BUN (Urea Nitrogen) 30 mg/dL (9.8-20.1); Bilirubin, Total 0.5 mg/dL (0.3-1.2); Calc. Creatinine Clearance 0 mL/min (70-130); Calcium 9.1 mg/dL (7.8-10.44); Carbon Dioxide 24 mmol/L (23-31); Chloride 102 mmol/L (98-107); Globulin 4.3 g/dL (2.4-3.5); Glucose 108 mg/dL (83-110); Potassium 4.3 mmol/L (3.5-5.1); Sodium 136 mmol/L (136-145)
== END 2025-05-17 18:45 | disposition home or self-care (01) ==
LOC: ERS 14:12
DX: R06.02 Shortness of breath (principal); I12.0 Hypertensive chronic kidney disease with stage 5 chronic kidney disease or end stage renal disease; E11.22 Type 2 diabetes mellitus with diabetic chronic kidney disease; N18.6 End stage renal disease; Z99.2 Dependence on renal dialysis
CPT/HCPCS: 71045; 80053; 83880; 84484; 85025; 93005

== ENCOUNTER 2025-06-11 08:39 | Emergency (ER) | payer MEDICARE ==
[2025-06-11 10:21] LABS: Anion Gap 16 mmol/L (10-20); BUN (Urea Nitrogen) 34 mg/dL (9.8-20.1); Calc. Creatinine Clearance 0 mL/min (70-130); Carbon Dioxide 23 mmol/L (23-31); Chloride 104 mmol/L (98-107); Potassium 3.8 mmol/L (3.5-5.1); Sodium 139 mmol/L (136-145)
[2025-06-11 10:22] LABS: ALT (SGPT) Less than 7 U/L (Less than 34); AST (SGOT) 13 U/L (11-34); Albumin 3.5 g/dL (3.1-4.5); Alkaline Phosphatase 110 U/L (40-110); Bilirubin, Total 0.4 mg/dL (0.3-1.2); Calcium 8.3 mg/dL (7.8-10.44); Globulin 4.2 g/dL (2.4-3.5); Glucose 100 mg/dL (83-110)
[2025-06-11 10:25] LABS: #Basophils 0.11 10x3/uL (0.0-0.2); #Eosinophils 0.54 10x3/uL (0.0-0.7); #Monocytes 0.77 10x3/uL (0.11-0.59); #Neutrophils 4.69 10x3/uL (1.40-6.50); %Basophils 1.5 % (0.0-1.0); %Eosinophils 7.2 % (0.0-10.0); %Lymphocytes 18.8 % (21.0-51.0); %Monocytes 10.2 % (0.0-10.0); %Neutrophils 62.0 % (42.0-75.0); Hematocrit 33.1 % (36.0-47.0); Hemoglobin 11.1 g/dL (12.0-16.0); Mean Corpuscular Hemoglobin 32.2 pg (27.0-31.0); Mean Corpuscular Volume 95.9 fL (78.0-98.0); Platelet Count 196 10x3/uL (130-400); Red Blood Cell (RBC) Count 3.45 mill/uL (4.20-5.40); White Blood Cell (WBC) Count 7.55 10x3/uL (4.8-10.8)
[2025-06-11] MEDS ORDERED: NIFEdipine XL 60 MG ER.TAB PO SCH (14:45)
[2025-06-11] MEDS ORDERED: Carvedilol 6.25 MG TAB ONE (14:49)
[2025-06-11] MEDS ORDERED: Losartan 25 MG TAB ONE (14:50)
== END 2025-06-11 15:38 | disposition short-term general hospital (02) ==
LOC: ERS 08:39
DX: T82.898A Other specified complication of vascular prosthetic devices, implants and grafts, initial encounter (principal); E11.22 Type 2 diabetes mellitus with diabetic chronic kidney disease; I12.0 Hypertensive chronic kidney disease with stage 5 chronic kidney disease or end stage renal disease; N18.6 End stage renal disease; Z79.899 Other long term (current) drug therapy
CPT/HCPCS: 73130; 80053; 83605; 85025; 86141; 93931; J2272; 96372